=== PATIENT | female | born 1980 | race Caucasian/White ===

== ENCOUNTER → 2019-05-09 13:53 | Outpatient (CLI) | payer OTHER, MEDICAID, SELFPAY ==
[2019-05-09 14:37] LABS: Add Manual Diff / Slide Review NO; Basophils Absolute Auto 0 /uL (0-100); Basophils Percent Auto 0.4 % (0-2); Eosinophils Absolute Auto 100 /uL (0-450); Eosinophils Percent Auto 1.8 % (2-4); Hematocrit 42.8 % (36-46); Hemoglobin 14.5 g/dL (12.0-16.0); Lymphocytes Absolute Auto 2200 /uL (1100-4500); Lymphocytes Percent Auto 33.5 % (25-40); Mean Corpuscular HGB Conc 33.8 % (30-36); Mean Corpuscular Volume 97.7 fL (80-100); Monocytes Absolute Auto 500 /uL (0-900); Monocytes Percent Auto 8.4 % (3-14); Neutrophils Absolute Auto 3600 /uL (1500-7000); Neutrophils Percent Auto 55.9 % (50-75); Platelet Count 199 X10^3/uL (150-400); Red Blood Cell Count 4.38 X10^6/uL (4.0-5.2); Red Cell Distribution Width 13.3 % (11.6-14.8); White Blood Cell Count 6.5 X10^3/uL (4.5-11.0)
[2019-05-09 14:58] LABS: Hemoglobin A1C% w Est Avg Glu 4.9 % (4.0-6.0)
[2019-05-09 15:23] LABS: Alanine Aminotransferase 22 IU/L (9-52); Albumin 4.2 g/dL (3.5-5.0); Albumin Globulin Ratio 1.5 (1.0-2.8); Alkaline Phosphatase 60 U/L (38-126); Aspartate Aminotransferase 22 IU/L (14-36); BUN Creatinine Ratio 13.8 (6-22); Bilirubin Total 0.6 mg/dL (0.2-1.3); Blood Urea Nitrogen 11 mg/dL (7-17); Calcium 9.5 mg/dL (8.4-10.2); Carbon Dioxide 27 mmol/L (22-32); Chloride 100 mmol/L (98-107); Cholesterol 180 mg/dL (140-199); Estimated Glomerular Filt Rate > 60.0 mL/min (>60); Globulin 2.8 g/dL (1.7-4.1); Glucose 109 mg/dL (70-100); HDL Cholesterol 72 mg/dL (40-60); HEMOLYSIS < 15 (0-50); LDL Cholesterol Calculated 96 mg/dL (<100); Potassium 3.8 mmol/L (3.4-5.1); Sodium 138 mmol/L (137-145); Triglycerides 62 mg/dL (35-150)
[2019-05-09 15:54] LABS: TSH w/ Reflex to FT4 3.73 uIU/mL (0.47-4.68)
[2019-05-09 16:31] LABS: Folate 12.2 ng/mL (2.76-20.0); Vitamin B12 711 pg/mL (239-931)
[2019-05-11 16:40] LABS: Triiodothyronine T3 Total 94 ng/dL (76-181)
== END ==
PROVIDERS: PCP Nurse Practitioner Family; Visit Provider Nurse Practitioner Family
DX: R20.0 Anesthesia of skin (principal); T14.8XXA Other injury of unspecified body region, initial encounter; R35.8 Other polyuria; R61 Generalized hyperhidrosis; E66.3 Overweight
CPT/HCPCS: 36415; 80053; 80061; 82607; 82746; 83036; 84443; 84480; 85025

== ENCOUNTER 2019-06-11 16:36 | Emergency (ER) | payer OTHER, MEDICAID, SELFPAY ==
[2019-06-11] VITALS (8 sets, daily range): BP systolic 111–129; BP diastolic 73–87; PULSE 73–81; RESP 13–26; TEMP 36.5–36.6; O2SAT 99–100
--- NOTE | 2019-06-11 17:25 | DI.CT.S_ITS ---
PROCEDURE: CT LUMBAR SPINE WO CON INDICATIONS: s/p fall on sacrum, decreased sensation on low back/buttock TECHNIQUE: Noncontrast 3 mm thick sections acquired from the T12 level to the sacrum. Sagittal and coronal reformats were constructed. For radiation dose reduction, the following was used: automated exposure control. COMPARISON: None. FINDINGS: Image quality: Excellent. Bones: There is a mild kyphosis centered at L1-L2. There is a transverse lucency along the posterior aspect of the S1 vertebral body with associated slight cortical discontinuity. The findings may represent a relatively nondisplaced fracture. Elsewhere, no acute vertebral body compression fractures. The inferior aspect of the sacrum is not fully included on the current study. No suspicious lytic or blastic bony lesions. Central spinal caliber is of normal overall caliber. No pars defects. Disc spaces: There is mild multilevel disc bulging throughout the lumbar spine. No definite high-grade spinal canal or neural femoral narrowing identified on CT. Soft tissues: No retroperitoneal masses or hematomas. Visualized aorta is normal in caliber. There is an enlarged uterus partially visualized. A hypoattenuating lesion within the left myometrium measuring up to 2.2 cm slightly represents a fibroid. IMPRESSION: 1. Transverse linear lucency within the posterior aspect of the esophageal body may represent a nondisplaced fracture. If clinical concern persists, recommend further evaluation with MRI. 2. Inferior aspect of the sacrum incompletely included on the current study. 3. Mild multilevel disc bulging without definite high-grade spinal canal or neuroforaminal narrowing. Dictated by: Connor Suazo M.D. on 06/11/2019 at 18:22 Approved by: Connor Suazo M.D. on 06/11/2019 at 18:30
--- NOTE | 2019-06-11 18:57 | ED_ITS ---
HPI - Back Pain/Injury <SHONA Clemens - Last Filed: 06/11/19 22:56> General Chief Complaint: Back Pain/Injury Stated Complaint: numbness, lower extremities s/p fall monday Time Seen by Provider: 06/11/19 16:46 Source: patient Mode of arrival: Ambulatory Limitations: no limitations History of Present Illness HPI Narrative: This is a 38-year-old female, uses vaper, who presents with her friend with chief complain of decreased sensation on her low back radiating down to her bilateral legs including in groin area but without weakness. She reports she had mechanical fall on stairs and landed on her sacrum and down 3 steps. She denies hitting her head or other injuries. She denies fever or rashes, incontinence of bowel or urine. She denies severe back pain but reports some p ressure-like discomfort from mid low back and she is ambulatory in stable gait. She states she was driving today and noticed decrease in sensation on her legs and pressure discomfort and had to insole tack puller hand and had to call her friend to get picked up. Patient denies prior history of back surgeries. Related Data Previous Rx's Medication Instructions Recorded cyclobenzaprine 5 mg PO TID PRN #10 tab 06/11/19 hydrocodone-acetaminophen [Roll] 1 tab PO Q8H PRN #7 tab 06/11/19 lidocaine 1 patch TOP DAILY #15 each 06/11/19 Allergies Allergy/AdvReac Type Severity Reaction Status Date / Time No Known Drug Allergies Allergy Verified 06/11/19 22:59 Review of Systems <SHONA Clemens - Last Filed: 06/11/19 22:56> Review of Systems Narrative: General: Denies fever, chills, fatigue, malaise, sweats. HEENT: Denies sinus pain, ear pain, sore throat, difficulty swallowing, dizziness. Respiratory: Denies dyspnea, cough, wheezing, hemoptysis, sputum. Cardiovascular: Denies chest pain, palpitations, orthopnea, edema. Gastrointestinal: Denies nausea, vomiting, abdominal pain, diarrhea, constipation, melena. : Denies dysuria, frequency, incontinence, hematuria, urinary retention. Musculoskeletal: See HPI Skin: Denies rash, skin lesions, or other. Neurologic: See HPI Psychiatric: No concerning psychosocial issues. 12-point review of systems is negative except for those stated above. PFSH <SHONA Clemens - Last Filed: 06/11/19 22:56> Medical History Anxiety (Acute) Depression (Acute) Social History (System 05/10/19 @ 09:07 by Susana Moncada) Smoking Status: Never smoker Social History (Updated 06/11/19 @ 20:49 by SHONA Clemens) Smoking Status: Never smoker Exam <SHONA Clemens - Last Filed: 06/11/19 22:56> Narrative Exam Narrative: GEN: Alert, oriented x 3, well appearing and nourished, and in no acute distress. Head: Normal cephalic, atraumatic. No scalp or temporal tenderness, palpable mass or rash. EYES: Pupils are equal, round, and reactive to light and accommodation. Extraocular muscles are intact bilaterally. There is no subconjunctival hemorrhage, exudate and sclera non-icteric. ENT: Hearing grossly intact. Nose without bleeding, purulent discharge or deviation. Mucous membrane moist, no mucosal lesion. Throat without erythema, tonsillar hypertrophy or exudate. Uvula in midline, airway patent. Neck: Trachea in midline. No JVD, non-tender without lymphadenopathy. No masses or thyroid megaly. Supple, non-tender and no meningeal signs. CARDIAC: Normal regular rate and rhythm without murmurs, gallops, or rubs. No chest wall tenderness. No peripheral edema, cyanosis or pallor. Capillary refill is less than 2 seconds. RESPIRATORY: Lungs are cleat to auscultate bilaterally. No cough, wheezes, rales, or rhonchi. No stridor, respiratory distress, increase work of breathing, or accessary muscle used. ABD: Abdomen soft, nontender and non-distended. No guarding or rebound tenderness to palpate. Bowel sounds are normal in all 4 quadrants. There is no palpable masses or organomegaly. EXT: Full painless ROM of all extremities with no loss of strength, effusion or edema. SKIN: Warm, dry, normal color for patient. No erythema, lesions or rash over visible areas. NEUROLOGICAL: Alert and oriented to place, time and person. Sensation and motor function intact bilaterally. No facial droops, dysphasia. PSYCHIATRIC: Good judgement and reason, without hallucinations, abnormal affect or abnormal behaviors during the examination. Patient is not suicidal. Initial Vital Signs Initial Vital Signs: Vital Signs Temperature 97.8 F 06/11/19 16:43 Pulse Rate 76 06/11/19 16:43 Respiratory Rate 13 06/11/19 16:43 Blood Pressure 126/85 06/11/19 16:43 Pulse Oximetry 100 06/11/19 16:43 Back/Spine/Pelvis Back: normal to inspection Cervical Spine: cervical ROM normal Thoracic/Lumbar Spine: thoracic and lumbar spine normal to inspection, straight leg raise negative bilaterally, No thoraco-lumbar spasm, thoracic spinal tenderness (Reports Pressure like discomfort in low thoracic but not painful to palpate) and lumbar spinal tenderness (Reports Pressure like discomfort but not painful to palpate) Sacrum: no ecchymosis, no erythema and no swelling Coccyx: no swelling and no tenderness Other: Patient reports decrease sensation on mid low back, buttocks, radiating down to bilateral legs. Strength in bilateral lower extremities equal and intact. Patella tendon reflex intact bilaterally. Rectal tone and sensation intact. <Margarita Ward DO - Last Filed: 06/12/19 07:12> Initial Vital Signs Initial Vital Signs: Vital Signs Temperature 97.8 F 06/11/19 16:43 Pulse Rate 76 06/11/19 16:43 Respiratory Rate 13 06/11/19 16:43 Blood Pressure 126/85 06/11/19 16:43 Pulse Oximetry 100 06/11/19 16:43 Course <SHONA Clemens - Last Filed: 06/11/19 22:56> Orders Ordered: Discontinued Medications Hydrocodone Bitart/Acetaminophen (Vicodin Prepack) 1 bottle MISC SEEINSTR ONE Stop: 06/11/19 22:29 Last Admin: 06/11/19 22:38 Dose: 1 bottle Documented by: [employer] Cyclobenzaprine HCl (Flexeril 10 Mg Prepack) 1 bottle MISC SEEINSTR ONE Stop: 06/11/19 22:29 Last Admin: 06/11/19 22:38 Dose: 1 bottle Documented by: [employer] Ondansetron HCl (Zofran Odt) 4 mg SL NOW ONE Stop: 06/11/19 20:44 Last Admin: 06/11/19 20:53 Dose: 4 mg Documented by: [employer] Ondansetron HCl (Zofran Odt Prepack) 1 bottle MISC SEEINSTR ONE Stop: 06/11/19 22:29 Last Admin: 06/11/19 22:38 Dose: 1 bottle Documented by: [employer] Reevaluation(s) Reevaluation #1: Patient reports the sensation in her bilateral buttocks seems mildly improved. Time: 20:00 Time: 21:10 Reevaluation #3: The patient reports her sensation in bilateral legs and buttocks has been improved Consultations Consultation #1: Dr. Burgess was contacted for consult but advised to contact [facility] for teacher selection specialist. Time: 18:30 Consultation #2: [facility], Pushed CT at 1845. Dr. Armendariz kindly called back and provided clinical guidance at 2230. Time: 20:10 Vital Signs Vital signs: Vital Signs - 8 hr 06/11/19 16:43 06/11/19 17:00 06/11/19 18:46 Temperature 97.8 F 97.7 F Pulse Rate 76 79 Respiratory Rate 13 16 Blood Pressure 126/85 Blood Pressure [Left Arm] 125/73 Pulse Oximetry 100 99 06/11/19 19:55 06/11/19 20:12 06/11/19 21:10 Temperature Pulse Rate 73 81 73 Respiratory Rate 15 13 26 H Blood Pressure Blood Pressure [Left Arm] 127/82 118/77 111/73 Pulse Oximetry 100 100 100 06/11/19 22:03 06/11/19 22:15 Temperature Pulse Rate 76 74 Respiratory Rate 17 15 Blood Pressure Blood Pressure [Left Arm] 129/87 Pulse Oximetry 99 99 <Margarita Ward, - Last Filed: 06/12/19 07:12> Orders Ordered: Discontinued Medications Hydrocodone Bitart/Acetaminophen (Vicodin Prepack) 1 bottle MISC SEEINSTR ONE Stop: 06/11/19 22:29 Last Admin: 06/11/19 22:38 Dose: 1 bottle Documented by: [employer] Cyclobenzaprine HCl (Flexeril 10 Mg Prepack) 1 bottle MISC SEEINSTR ONE Stop: 06/11/19 22:29 Last Admin: 06/11/19 22:38 Dose: 1 bottle Documented by: [employer] Ondansetron HCl (Zofran Odt) 4 mg SL NOW ONE Stop: 06/11/19 20:44 Last Admin: 06/11/19 20:53 Dose: 4 mg Documented by: [employer] Ondansetron HCl (Zofran Odt Prepack) 1 bottle MISC SEEINSTR ONE Stop: 06/11/19 22:29 Last Admin: 06/11/19 22:38 Dose: 1 bottle Documented by: [employer] Vital Signs Vital signs: Vital Signs - 8 hr 06/11/19 16:43 06/11/19 17:00 06/11/19 18:46 Temperature 97.8 F 97.7 F Pulse Rate 76 79 Respiratory Rate 13 16 Blood Pressure 126/85 Blood Pressure [Left Arm] 125/73 Pulse Oximetry 100 99 06/11/19 19:55 06/11/19 20:12 06/11/19 21:10 Temperature Pulse Rate 73 81 73 Respiratory Rate 15 13 26 H Blood Pressure Blood Pressure [Left Arm] 127/82 118/77 111/73 Pulse Oximetry 100 100 100 06/11/19 22:03 06/11/19 22:15 Temperature Pulse Rate 76 74 Respiratory Rate 17 15 Blood Pressure Blood Pressure [Left Arm] 129/87 Pulse Oximetry 99 99 MDM - Back Pain/Injury <SHONA Clemens - Last Filed: 06/11/19 22:56> Differential Diagnosis Differential diagnosis: Likely lumbar radiculopathy, sciatica, strain of lumbar region and other (Lumbar/sacral fracture, disc rupture/bulging) Medical Records Attestation: I reviewed the patient's medical records. Lab Data Labs: Urine Dip Bedside Urine Glucose Negative Bedside Urine Bilirubin + 1 Bedside Urine Ketone - Negative Urine Specific [place] 1.010 Bedside Urine Occult Blood - Negative Bedside Urine pH 7.5 Bedside Urine Protein - Negative Bedside Urine Urobilinogen - Negative Bedside Urine Nitrite - Negative Bedside Urine Leukocytes - Negative Esterase Imaging Data CT-Lumbar : Radiologist's impression: [address] [address] [address] Scan Report Signed Patient: Verito Vinson [facility]#: [id number] : 1980Acct:[id number] Age/Sex: 38 / FDate of Service: 06/11/19 Loc: ED Accession Number: [id number] Procedure: CT lumbar spine wo con Ordering Provider: Karthikeyan Gallardo PROCEDURE: CT LUMBAR SPINE WO CON INDICATIONS: s/p fall on sacrum, decreased sensation on low back/buttock TECHNIQUE: Noncontrast 3 mm thick sections acquired from the T12 level to the sacrum. Sagittal and coronal reformats were constructed. For radiation dose reduction, the following was used: automated exposure control. COMPARISON: None. FINDINGS: Image quality: Excellent. Bones: There is a mild kyphosis centered at L1-L2. There is a transverse lucency along the posterior aspect of the S1 vertebral body with associated slight cortical discontinuity. The findings may represent a relatively nondisplaced fracture. Elsewhere, no acute vertebral body compression fractures. The inferior aspect of the sacrum is not fully included on the current study. No suspicious lytic or blastic bony lesions. Central spinal caliber is of normal overall caliber. No pars defects. Disc spaces: There is mild multilevel disc bulging throughout the lumbar spine. No definite high-grade spinal canal or neural femoral narrowing identified on CT. Soft tissues: No retroperitoneal masses or hematomas. Visualized aorta is normal in caliber. There is an enlarged uterus partially visualized. A hypoattenuating lesion within the left myometrium measuring up to 2.2 cm slightly represents a fibroid. IMPRESSION: 1. Transverse linear lucency within the posterior aspect of the esophageal body may represent a nondisplaced fracture. If clinical concern persists, recommend further evaluation with MRI. 2. Inferior aspect of the sacrum incompletely included on the current study. 3. Mild multilevel disc bulging without definite high-grade spinal canal or neuroforaminal narrowing. Dictated by: Connor Suazo M.D. on 06/11/2019 at 18:22 Approved by: Connor Suazo M.D. on 06/11/2019 at 18:30 [facility] Narrative Medical decision making narrative: This is a 38-year-old female who had fell on stairs on her sacrum and down 3 steps 3 days ago. Patient reports pressure-like low back pain has been manageable but she came in to ED today with decreased sensation from low back radiating to buttocks/groin and down to her ankle. Patient had intact bilateral strength in her lower extremities. She had intact rectal tone. Denies incontinence for bladder and stool. She denies fever/chills, nausea or vomiting. She is ambulatory in stable gait. Lumbar CT was obtained and shows possible transverse along the posterior aspect lucency with associated slight cortical discontinuity indicating nondisplaced fracture. There was also multilevel disc bulging without spinal canal narrowing. Initially Dr. Burgess was consulted but suggested to contact [facility] for teacher selection specialist. Patient was reassessed several times during ED stay and reports her sensation has been improving in her buttocks and bilateral lower legs. Dr. Armendariz kindly consulted for Ms. Vinson's case and suggested non- surgical intervention and conservative therapy with re-evaluation and strict return precautions. Patient was referred to [facility] for further evaluation and treatment. Patient advise possible further imaging test such as MRI in the near future. Patient discharged to home with muscle relaxant, Zofran ODT, Roll and lidocaine patch. Patient verbalized the understanding and agrees with treatment plan and ambulatory out the ED with stable gait. Work note provided. <Margarita Ward, DO - Last Filed: 06/12/19 07:12> Lab Data Labs: Urine Dip Bedside Urine Glucose Negative Bedside Urine Bilirubin + 1 Bedside Urine Ketone - Negative Urine Specific [place] 1.010 Bedside Urine Occult Blood - Negative Bedside Urine pH 7.5 Bedside Urine Protein - Negative Bedside Urine Urobilinogen - Negative Bedside Urine Nitrite - Negative Bedside Urine Leukocytes - Negative Esterase MDM Narrative Medical decision making narrative: Patient case discussed, she has full strength, good rectal tone, positive sensation, patient Ct imaging reviewed and plan for orthopedic consultation. Discharge Plan Departure Patient Disposition: Home Clinical Impression: Bulging lumbar disc, Fall (on) (from) other stairs and steps, initial encounter Closed fracture of sacrum Qualifiers: Encounter type: initial encounter Zone of sacrum fracture: unspecified portion of sacrum Qualified Code(s): S32.10XA - Unspecified fracture of sacrum, initial encounter for closed fracture Discharge Date/Time: 06/11/19 22:47 Instructions: DI for Vertebral Fracture Activity Restrictions/Additional Instructions: You have been diagnosed with [decreased sensation from low back to legs and back discomfort. CT of lumbar test shows you may have nondisplaced posterior S1 lumbar fracture with mild multilevel disc bulging w/o definite neuroforaminal narrowing]. What to do: *Take your medications as directed. Please take Tylenol and or Motrin as needed for the discomfort. Please take Flexeril as needed for muscle spasm and Roll for severe back pain. These medications will make you drowsy so please take precaution. Do not drive, drink alcohol or operate heavy equipments. You can use warm/cool pack as needed for discomfort. Rest you're back for next few days. *Follow up with your primary care provider in 2-3 days, call for an appointment. Let them know you were seen in the ED and that we asked you to be seen in follow up. You may need further imaging test such as MRI. *Return to ED if you have any new, worsening, or concerning symptoms, such as [increasing numbness from back to lower extremities, groin area, incontinence for urine and stool, weakness to her legs, chest pain, breathing difficulty, unable to tolerate fluids, or any acute concerns]. Prescriptions: New cyclobenzaprine 5 mg tablet 5 mg PO TID PRN (Reason: muscle spasm) Qty: 10 RF: 0 hydrocodone-acetaminophen [Roll] 5-325 mg tablet 1 tab PO Q8H PRN (Reason: pain) Qty: 7 RF: 0 lidocaine 5 % adhesive patch,medicated 1 patch TOP DAILY Qty: 15 RF: 0 Referrals: [facility] [Outside] Augustine Swain MD [Physician] - Karthikeyan Gallardo ARNP [Primary Care Provider] - Stand Alone Forms: Work Release Note
[2019-06-11] MEDS: ONDANSETRON 4 MG ODT SL (20:53)
[2019-06-11] MEDS: CYCLOBENZAPRINE 10 MG PREPACK 1 BOTTLE MISC (22:38)
[2019-06-11] MEDS: ONDANSETRON 4 MG ODT PREPACK 1 BOTTLE MISC (22:38)
[2019-06-11] MEDS: HYDROCODONE/ACET 5/325 PREPACK 1 BOTTLE MISC (22:38)
== END 2019-06-11 22:47 | disposition home or self-care (01) ==
PROVIDERS: Emergency Provider Nurse Practitioner Family; PCP Nurse Practitioner Family
DX: M51.26 Other intervertebral disc displacement, lumbar region (principal); S32.10XA Unspecified fracture of sacrum, initial encounter for closed fracture; W10.8XXA Fall (on) (from) other stairs and steps, initial encounter
CPT/HCPCS: 72131; 81003; 99283; 99284

== ENCOUNTER 2019-06-18 20:40 | Emergency (ER) | payer OTHER, MEDICAID, SELFPAY ==
[2019-06-18 20:53] VITALS: BP 125/81; PULSE 77; RESP 14; TEMP 37.5; O2SAT 95; BMI 30.7
--- NOTE | 2019-06-18 21:40 | ED_ITS ---
HPI - Fall General Chief Complaint: Fall Stated Complaint: feels like body is going numb Time Seen by Provider: 06/18/19 20:54 Source: patient Mode of arrival: Ambulatory Limitations: no limitations History of Present Illness HPI Narrative: 38-year-old female here for evaluation of symptoms to include ?my whole body going numb ?she was loosely seen in the emergency department after she sustained an injury where she slipped going down some stairs. Had a CT scan of the lumbar spine performed in the emergency department. Which had a question of a lumbar spinal fracture. States she has since followed up with Orthopedic surgery who, according to the patient, questions whether not there is actually a fracture. A consult was placed for her to have an MRI but she has not scheduled this yet. She is also followed up with her primary provider she states since that time she has had increasing numbness in her legs. She states that it is all around her legs all the way to her feet. She states she does not have any pain in her back. No urinary symptoms. No bowel symptoms. No vaginal bleeding. She thinks that it is the left side more than the right. She is also complaining of tingling in her hands and also on the right side of her face. Has not tried anything for symptoms prior to her Related Data Previous Rx's Medication Instructions Recorded cyclobenzaprine 5 mg PO TID PRN #10 tab 06/11/19 hydrocodone-acetaminophen [[place]] 1 tab PO Q8H PRN #7 tab 06/11/19 lidocaine 1 patch TOP DAILY #15 each 06/11/19 prednisone 40 mg PO DAILY 5 Days #10 tab 06/18/19 Allergies Allergy/AdvReac Type Severity Reaction Status Date / Time No Known Drug Allergies Allergy Verified 06/18/19 20:53 Review of Systems Constitutional Constitutional: Denies fever(s), Denies frequent falls and Denies headache(s) ENT Ears, Nose, Mouth, and Throat: Denies vertigo, Denies dizziness, Denies headache(s) and Denies disequilibrium Cardiovascular Cardiovascular: Denies chest pain, Denies syncope and Denies dyspnea Respiratory Respiratory: Denies dyspnea Gastrointestinal Gastrointestinal: Denies abdominal pain and Denies vomiting Genitourinary Genitourinary: Denies dysuria Musculoskeletal Musculoskeletal: Denies back pain, Denies myalgias, Denies arthralgias, Reports numbness and Reports tingling Integumentary/Breasts Skin/Breast: Denies lesions and Denies rash Neurologic Neurologic: Denies behavioral changes, Denies confusion, Denies vertigo, Denies dizziness, Denies syncope, Denies frequent falls, Denies headache(s), Denies focal weakness, Reports numbness, Reports sensory deficit, Reports tingling, Reports paresthesias and Denies disequilibrium Psychiatric Psychiatric: Denies behavioral changes and Denies confusion Hematologic/Lymphatic Hematologic/Lymphatic: Denies easy bleeding and Denies easy bruising Allergic/Immunologic Allergic/Immunologic: Denies urticaria Exam Initial Vital Signs Initial Vital Signs: Vital Signs Temperature 99.5 F 06/18/19 20:53 Pulse Rate 77 06/18/19 20:53 Respiratory Rate 14 06/18/19 20:53 Blood Pressure 125/81 06/18/19 20:53 Pulse Oximetry 95 06/18/19 20:53 Const General: cooperative, comfortable, well developed and well groomed Orientation: alert, awake and oriented x3 HENMT Head: normal to inspection and normocephalic Resp Effort & Inspection: normal respiratory effort Auscultation: clear to auscultation bilaterally Cardio Rate: regular rate Rhythm: regular rhythm GI Inspection: non-distended Palpation: No firm and No tender Back/Spine/Pelvis Back: No CVA tenderness Thoracic/Lumbar Spine: No thoracic spinal tenderness and No lumbar spinal tenderness Skin Lesions: no lesions Rashes: no rashes Neuro General: alert, awake and oriented x3 Cranial Nerves: CN's II-XI intact bilaterally Cognition: normal cognition Speech: speech normal Gait: normal gait Motor: muscle tone normal throughout Sensory Exam: no sensory deficits noted DTR's: Rt Patellar: 2+, Lt Patellar: 2+, Rt Ankle: 2+ and Lt Ankle: 2+ Extrem General: normal to inspection and capillary refill normal Psych Appearance: grossly normal and well kempt [facility] Medical History Anxiety (Acute) Depression (Acute) Social History Smoking Status: Never smoker Course Vital Signs Vital signs: Vital Signs - 8 hr 06/18/19 20:53 Temperature 99.5 F Pulse Rate 77 Respiratory Rate 14 Blood Pressure 125/81 Pulse Oximetry 95 MDM - Fall MDM Narrative Medical decision making narrative: Patient has no objective findings of weakness on her lower and upper extremities. to light touch patient stated that it felt the same on bilateral lower extremities. She still describes numbness. I have low suspicion for cauda equina given her physical exam. Also consider different cord syndromes however patient's symptoms are not consistent with any of these. I did inform the patient that an MRI is not unreasonable however this would not be able to be obtained in the emergency department. We did discuss paresthesias. I feel that no further workup was needed here in the emergency department. I did tried to provide reassurance to the patient. Will have her contact her primary provider. Also have her follow up with Orthopedics to get the MRI. She was given return precautions and follow-up instructions. Was sent home with prednisone to see if this does not improve her symptoms. She expressed understanding and agreement. Discharge Plan Departure Patient Disposition: Home Clinical Impression: Paresthesias Discharge Date/Time: 06/18/19 22:13 Instructions: DI for Numbness/tingling Activity Restrictions/Additional Instructions: I do agree that you needed MRI however we are unable to get that out of the emergency department. I do recommend that tomorrow you contact the orthopedic doctor's office to see the status of this referral. I also recommend you contact your primary provider for a follow-up. Take the medications as directed. Return to the emergency department for any new or worsening symptoms Prescriptions: New prednisone 20 mg tablet 40 mg PO DAILY 5 Days Qty: 10 RF: 0 No Action cyclobenzaprine 5 mg tablet 5 mg PO TID PRN (Reason: muscle spasm) Qty: 10 RF: 0 hydrocodone-acetaminophen [[place]] 5-325 mg tablet 1 tab PO Q8H PRN (Reason: pain) Qty: 7 RF: 0 lidocaine 5 % adhesive patch,medicated 1 patch TOP DAILY Qty: 15 RF: 0 Referrals: Karthikeyan Gallardo ARNP [Primary Care Provider] -
== END 2019-06-18 22:13 | disposition home or self-care (01) ==
PROVIDERS: Emergency Provider Emergency Medicine; PCP Nurse Practitioner Family
DX: R20.2 Paresthesia of skin (principal)
CPT/HCPCS: 99282

== ENCOUNTER 2020-07-02 06:54 | Emergency (ER) | payer OTHER, MEDICAID, SELFPAY ==
[2020-07-02 07:01] VITALS: BP 116/87; PULSE 94; RESP 12; TEMP 36.6; O2SAT 98; BMI 29.2
--- NOTE | 2020-07-02 07:29 | ED_ITS ---
HPI - Headache General Chief Complaint: Headache Stated Complaint: weird pain in head since yesterday Time Seen by Provider: 07/02/20 07:29 Source: patient Mode of arrival: Ambulatory Limitations: no limitations History of Present Illness HPI Narrative: This is a 39-year-old female who comes to the emergency department with complaint of pain in her left parietal region. Patient states that yesterday she was lifting some heavy equipment that weighed about 65 lb, she states that later she felt like she tweaked her neck and that the muscles are very tight and it was radiating to her posterior scalp. And then later in the evening she felt like it had moved more to the parietal area. She states that typically when she has pain or injuries set so much painful as feels numb and she is having a little bit of that sensation on the left side of her face. She has not appreciated any drooping or if difficulties with movement, she has not had any issues with dysarthria, patient has not had any new weakness or d ifficulty with using her extremities. She denies any fevers, no rashes or new skin changes she does have alopecia and has complete her loss on her scalp. Patient states she has had neck issues in the past but feels that her neck feels better at this time. She denies any chest pain or shortness of breath, no nausea or vomiting, no urinary or GI symptoms and no other neurologic symptoms. Patient takes Zoloft and states that she has alopecia as well as a history of recurrent syncope but states ?she has grown out of that?. She does have a history of migraines but states this seems different. Denies any recent surgeries. She waits tobacco, denies use of alcohol or illicit drugs other than THC. She denies any family history of cardiac, embolic or stroke history. Related Data Previous Rx's Medication Instructions Recorded cyclobenzaprine 5 mg PO TID PRN #10 tab 06/11/19 hydrocodone-acetaminophen [[place]] 1 tab PO Q8H PRN #7 tab 06/11/19 lidocaine 1 patch TOP DAILY #15 each 06/11/19 Allergies Allergy/AdvReac Type Severity Reaction Status Date / Time No Known Drug Allergies Allergy Verified 06/18/19 20:53 Review of Systems Review of Systems ROS Unobtainable: All systems reviewed & are unremarkable except as noted in HPI and below Patient History Medical History (Updated 07/02/20 @ 07:45 by Margarita Ward DO) Alopecia (Acute) Anxiety (Acute) Depression (Acute) Social History Smoking Status: Current every day smoker Smoking Status: Current every day smoker tobacco type: vaping alcohol intake frequency: a few times a week Substance Use Type: does not use and marijuana Exam Narrative Exam Narrative: GEN: well nourished, well appearing female, alert and oriented x 3, patient appears to be in mild distress. HEENT: Atraumatic, patient has alopecia and loss of hair over entire scalp, pupils are equal round reactive to light, extraocular movements are intact, nares are clear, TMs are clear with no fluid, there is no conjunctival pallor. Throat is clear without any exudates, erythema, tonsillar enlargement or uvular deviation, no facial droop. Patient describes decreased sensation around eye but has sensation to light touch. HEART: Regular rate and rhythm without murmur, clicks, rubs. Pulses are equal in upper extremities LUNGS:Lungs clear to auscultation, no wheezes, rales, crackles, chest moves symmetrically ABD:bowel sounds normal, soft, non-tender, no guarding, rebound, rigidity, no masses noted, no hepatosplenomegaly :No CVA tenderness MSCL: Non-tender, no muscle atrophy, muscles strength 5/5 upper and lower extremities, full range of motion, normal gait NEURO:CN 2-12 intact, sensation normal, reflexes 2/4 upper and lower extremities. finger nose finger test normal, heel roman test normal SKIN: no rash, no erythema or vesicles, patient has complete loss of hair on scalp and removed wig for examination. Initial Vital Signs Initial Vital Signs: Vital Signs Temperature 97.8 F 07/02/20 07:01 Pulse Rate 94 H 07/02/20 07:01 Respiratory Rate 12 07/02/20 07:01 Blood Pressure 116/87 07/02/20 07:01 Pulse Oximetry 98 07/02/20 07:01 Scores GCS Maria [place] coma scale eye opening: Spontaneous [place] coma scale verbal response: Orientated [place] coma scale motor response: Obey commands [place] coma scale total score: 15 Course Vital Signs Vital signs: Vital Signs - 8 hr 07/02/20 07:01 07/02/20 07:51 Temperature 97.8 F Pulse Rate 94 H 74 Respiratory Rate 12 16 Blood Pressure 116/87 119/78 Pulse Oximetry 98 100 MDM - Headache MDM Narrative Medical decision making narrative: Discussed with patient at this time my suspicion for stroke or other emergent event is low. We did discuss she could possibly be an early stages of a Berrios's palsy, Shingles although she does not have any skin changes noted. We did discuss anticipatory guidance, that she needs to return if her symptoms are continuing for a prolonged period if they are evolving or she is noting new neurologic changes. She was given referral for primary care issues being seen at the [facility] clinic and they have closed. Discharge Plan Departure Patient Disposition: Home Clinical Impression: Headache Discharge Date/Time: 07/02/20 07:48 Instructions: DI for Headache Activity Restrictions/Additional Instructions: Follow-up with primary care in the next 2-3 days if you are not having any improvement of her symptoms. If he needs there is a provider access line at [phone] [place] [id number] to help find a primary care provider. You may continue [id number] pain medications and the treatments even using at home if you find it helpful. Return to the ER for fevers greater 100.4 F, severe headaches, sudden vision changes, rash, drooping or weakness of the face, extremities, inability use extremities, new chest pain or shortness of breath, persistent vomiting, loss of bowel or bladder control or other new or concerning symptoms. Prescriptions: No Action cyclobenzaprine 5 mg tablet 5 mg PO TID PRN (Reason: muscle spasm) Qty: 10 RF: 0 hydrocodone-acetaminophen [[place]] 5-325 mg tablet 1 tab PO Q8H PRN (Reason: pain) Qty: 7 RF: 0 lidocaine 5 % adhesive patch,medicated 1 patch TOP DAILY Qty: 15 RF: 0
[2020-07-02 07:51] VITALS: BP 119/78; PULSE 74; RESP 16; O2SAT 100
== END 2020-07-02 07:48 | disposition home or self-care (01) ==
PROVIDERS: Emergency Provider Emergency Medicine
DX: R51.9 Headache, unspecified (principal)
CPT/HCPCS: 99281

== ENCOUNTER → 2020-10-02 09:07 | Outpatient (CLI) | payer OTHER, MEDICAID, SELFPAY ==
[2020-10-02] MEDS: COVID-19 VACC #1, MRNA(MOD) 100 MCG/0.5 ML VIAL IM (09:12)
== END ==
PROVIDERS: Visit Provider Internal Medicine
DX: Z23 Encounter for immunization (principal)
CPT/HCPCS: 0011A; 91301

== ENCOUNTER → 2020-10-30 09:14 | Outpatient (CLI) | payer OTHER, MEDICAID, SELFPAY ==
[2020-10-30] MEDS: COVID-19 VACC #2, MRNA(MOD) 100 MCG/0.5 ML VIAL IM (09:18)
== END ==
PROVIDERS: Visit Provider Internal Medicine
DX: Z23 Encounter for immunization (principal)
CPT/HCPCS: 0012A; 91301

== ENCOUNTER → 2020-12-21 14:49 | Outpatient (CLI) | payer OTHER, MEDICAID, SELFPAY ==
--- NOTE | 2020-12-21 | DI.US.S_ITS ---
LIMITED ULTRASOUND OF LEFT BREAST: 12/21/2020 CLINICAL: Palpable thickening in left breast UOQ. Comparison is made to exam dated: 12/21/2020 [facility]. Real-time ultrasound of the left breast upper outer quadrant was performed. Leal scale images of the real-time examination were reviewed. No significant abnormalities were seen sonographically in the left breast. Specifically, no finding to correspond to the patient's screening mammography abnormality. There is normal very dense fibrous tissue in this area on ultrasound. IMPRESSION: PROBABLY BENIGN There is no sonographic correlate to the patient's mammography abnormality other than normal dense tissue. A follow-up left mammogram and an ultrasound in 6 months is recommended to demonstrate stability. The patient also required immediate US evaluation of a right breast mammography finding because this could not be performed today. Findings and recommendations were conveyed to the patient at time of exam. This exam was interpreted at Station ID: [id number]. Electronically Signed By: Aleena ron/:12/23/2020 08:45:17 letter sent: Followup Recommended Ultrasound BI-RADS: 3 Probably benign
--- NOTE | 2020-12-21 | DI.MG.S_ITS ---
BILATERAL DIGITAL DIAGNOSTIC MAMMOGRAM 3D/2D: 12/21/2020 CLINICAL: Left breast pain and lump. Baseline exam. No prior exams were available for comparison. The tissue of both breasts is heterogeneously dense. This may lower the sensitivity of mammography. There is a 3.9 cm irregular equal density asymmetry with an indistinct margin in the left breast at 1 o'clock middle depth. This correlates as palpated. Incidental note made of an 8 mm round low density asymmetry with a circumscribed margin in the right breast at 11 o'clock anterior depth. No other significant masses or calcifications are seen in either breast. IMPRESSION: INCOMPLETE: NEEDS ADDITIONAL IMAGING EVALUATION The 3.9 cm irregular equal density asymmetry in the left breast at 1 o'clock middle depth is indeterminate. An ultrasound is recommended. This was performed immediately following this exam. The 8 mm round low density asymmetry in the right breast at 11 o'clock anterior depth most likely is a cyst and is indeterminate. An ultrasound is recommended. This was unable to be performed the same day, and patient will be instructed to schedule this exam as soon as possible. This exam was interpreted at Station ID: [id number]. NOTE: For mammograms, a report in lay terms will be sent to the patient. Approximately 15% of breast malignancies will not be visualized mammographically. In the management of a palpable breast mass, a negative mammogram must not discourage biopsy of a clinically suspicious lesion. Electronically Signed By: Aleena ron/:12/21/2020 16:02:25 ACR BI-RADS Category 0: Incomplete [id number]
== END ==
PROVIDERS: Referring Provider Physician Assistant; Visit Provider Physician Assistant
DX: R92.8 Other abnormal and inconclusive findings on diagnostic imaging of breast (principal); N64.4 Mastodynia; N64.89 Other specified disorders of breast
CPT/HCPCS: 76642; 77066; G0279

== ENCOUNTER 2021-01-22 12:57 | Emergency (ER) | payer OTHER, MEDICAID, SELFPAY ==
[2021-01-22] VITALS (7 sets, daily range): BP systolic 124–136; BP diastolic 66–97; PULSE 55–89; RESP 16–20; TEMP 36.6–36.7; O2SAT 98–100; BMI 26.4
[2021-01-22 13:36] LABS: Add Manual Diff / Slide Review NO; Basophils Absolute Auto 0 /uL (0-100); Eosinophils Absolute Auto 100 /uL (0-450); Eosinophils Percent Auto 2.4 % (2-4); Hematocrit 39.8 % (36-46); Hemoglobin 13.3 g/dL (12.0-16.0); Lymphocytes Absolute Auto 2200 /uL (1100-4500); Lymphocytes Percent Auto 44.9 % (25-40); Mean Corpuscular HGB Conc 33.3 % (30-36); Mean Corpuscular Hemoglobin 30.6 PG (26-34); Mean Corpuscular Volume 91.8 fL (80-100); Monocytes Absolute Auto 300 /uL (0-900); Monocytes Percent Auto 6.6 % (3-14); Neutrophils Absolute Auto 2200 /uL (1500-7000); Neutrophils Percent Auto 45.1 % (50-75); Platelet Count 202 X10^3/uL (150-400); Red Blood Cell Count 4.33 X10^6/uL (4.0-5.2); Red Cell Distribution Width 15.1 % (11.6-14.8); White Blood Cell Count 4.9 X10^3/uL (4.5-11.0)
[2021-01-22 13:38] LABS: INR 1.1 (0.9-1.3); Prothrombin Time 12.2 SECONDS (10.1-12.7)
[2021-01-22 13:41] LABS: PTT Partial Thromboplastin Tim 35 SECONDS (26.4-36.2)
[2021-01-22 13:46] LABS: Alanine Aminotransferase 19 IU/L (<35); Albumin 4.3 g/dL (3.5-5.0); Albumin Globulin Ratio 1.5 (1.0-2.8); Alkaline Phosphatase 39 U/L (38-126); Aspartate Aminotransferase 25 IU/L (14-36); BUN Creatinine Ratio 14.7 (6-22); Bilirubin Total 0.5 mg/dL (0.2-1.3); Blood Urea Nitrogen 10 mg/dL (7-17); Calcium 9.2 mg/dL (8.4-10.2); Carbon Dioxide 25 mmol/L (22-32); Chloride 103 mmol/L (98-107); Estimated Glomerular Filt Rate > 60.0 mL/min (>60); Globulin 2.9 g/dL (1.7-4.1); Glucose 90 mg/dL (70-100); HEMOLYSIS < 15 (0-50); Lipase 228 U/L (23-300); Potassium 3.7 mmol/L (3.4-5.1); Sodium 135 mmol/L (137-145); Total Protein 7.2 g/dL (6.3-8.2)
--- NOTE | 2021-01-22 15:18 | ED_ITS ---
HPI - Abdominal Pain General Chief Complaint: Abdominal Pain Stated Complaint: nausea, vomiting, diarrhea, pain Time Seen by Provider: 01/22/21 14:46 Source: patient Mode of arrival: Ambulatory Limitations: no limitations History of Present Illness HPI narrative: Patient is a 40-year-old female who presents with diarrhea nausea vomiting and abdominal pain which started last evening. There are other people at work who have similar symptoms. She felt a little lightheaded and thought that her glucose was low so she ate a protein shake and then immediately has had multiple episodes of diarrhea yesterday. Today she has felt nauseous and threw up just a little bit. No fever, but is feeling chilled. No bloody stools. No recent antibiotics. MD complaint: abdominal pain Onset (ago): hour(s) Quality: cramping Radiation: none Related Data Previous Rx's Medication Instructions Recorded cyclobenzaprine 5 mg PO TID PRN #10 tab 06/11/19 hydrocodone-acetaminophen [[place]] 1 tab PO Q8H PRN #7 tab 06/11/19 lidocaine 1 patch TOP DAILY #15 each 06/11/19 ondansetron 4 mg PO Q8H PRN #10 tab 01/22/21 Allergies Allergy/AdvReac Type Severity Reaction Status Date / Time No Known Drug Allergies Allergy Verified 01/22/21 13:17 Review of Systems Review of Systems Narrative: GENERAL: Denies chills, fatigue, malaise, fever, sweats, travel HEENT: Denies sinus pain, ear pain, sore throat, difficulty swallowing, neck pain RESPIRATORY: Denies dyspnea, cough, wheezing, hemoptysis, sputum. CARDIOVASCULAR: Denies chest pain, palpitations, orthopnea, edema GASTROINTESTINAL: See HPI : Denies dysuria, frequency, incontinence, hematuria, urinary retention, flank pain. MUSCULOSKELETAL: Denies weakness, joint pain, or bony pain SKIN: No rash, no erythema, no pruritus NEUROLOGIC: Denies weakness, dizziness, headache, numbness, change in speech, confusion PSYCHIATRIC: No concerning psychosocial issues. 12 point review of systems is negative except for those stated above and HPI Patient History Medical History Alopecia Anxiety Depression Social History Smoking Status: Current every day smoker Smoking Status: Current every day smoker tobacco type: vaping alcohol intake frequency: a few times a week Substance Use Type: does not use and marijuana Exam Initial Vital Signs Initial Vital Signs: Vital Signs Temperature 98.1 F 01/22/21 13:09 Pulse Rate 82 01/22/21 13:09 Respiratory Rate 16 01/22/21 13:09 Blood Pressure 136/97 H 01/22/21 13:09 Pulse Oximetry 99 01/22/21 13:09 GENERAL: Well-appearing, well-nourished and in no acute distress. HEENT: Head atraumatic,EOMI, pupils reactive, face symmetric, moist mucous membranes CARDIOVASCULAR: Regular rate and rhythm without murmurs, rubs or gallops. RESPIRATORY: Breath sounds equal bilaterally, no wheezes rales or rhonchi. ABDOMEN: Soft, nontender. Normoactive bowel sounds all 4 quadrants. No guarding or rebound. EXTREMITIES: Normal range of motion, no clubbing or edema. Neurovascularly intact NEUROLOGICAL: Alert and oriented x4.Normal gait and speech. Cranial nerves II through XII grossly intact. SKIN: Warm, dry, no laceration, no petechiae, no rashes or lesions. Course Orders Ordered: ED Orders 01/22/21 13:20 Complete Blood Count AUTO DIFF Stat Comprehensive Metabolic Panel Stat Lipase Stat Partial Thromboplastin Time Stat Prothrombin Time INR Stat 01/22/21 13:22 EKG-12 Lead Stat Discontinued Medications Sodium Chloride (Normal Saline 0.9%) 1,000 mls @ 1,000 mls/hr IV BOLUS ONE Stop: 01/22/21 16:52 Last Infusion: 01/22/21 17:16 Dose: 0 mls/hr Documented by: Admin: 01/22/21 16:12 Dose: 1,000 mls/hr Documented by: BREEZY Ketorolac Tromethamine (Ketorolac 30 Mg/Ml Vial) 15 mg IV NOW ONE Stop: 01/22/21 15:54 Last Admin: 01/22/21 16:13 Dose: 15 mg Documented by: BREEZY Ondansetron HCl (Ondansetron 4 Mg/2 Ml Inj) 4 mg IV NOW ONE Stop: 01/22/21 15:54 Last Admin: 01/22/21 16:12 Dose: 4 mg Documented by: BREEZY Vital Signs Vital signs: Vital Signs - 8 hr 05/14/21 13:09 01/22/21 13:45 01/22/21 13:46 Temperature 98.1 F Pulse Rate 82 79 79 Respiratory Rate 16 Blood Pressure 136/97 H 126/68 124/79 Pulse Oximetry 99 100 100 01/22/21 15:20 01/22/21 15:23 01/22/21 15:33 Temperature 97.8 F Pulse Rate 89 87 Respiratory Rate 16 Blood Pressure 128/66 124/76 Pulse Oximetry 98 99 99 01/22/21 17:25 Temperature Pulse Rate 55 L Respiratory Rate 20 Blood Pressure 135/76 Pulse Oximetry 100 MDM - Abdominal Pain Lab Data Result diagrams: 01/22/21 13:20 01/22/21 13:20 Labs: Lab Results 01/22/21 01/22/21 01/22/21 Range/Units 13:20 13:20 13:20 WBC 4.9 (4.5-11.0) X10^3/uL RBC 4.33 (4.0-5.2) X10^6/uL Hgb 13.3 (12.0-16.0) g/dL Hct 39.8 (36-46) % MCV 91.8 (80-100) fL MCH 30.6 (26-34) PG MCHC 33.3 (30-36) % RDW 15.1 H (11.6-14.8) % Plt Count 202 (150-400) X10^3/uL Neut % (Auto) 45.1 L (50-75) % Lymph % (Auto) 44.9 H (25-40) % [place] % (Auto) 6.6 (3-14) % Eos % (Auto) 2.4 (2-4) % Baso % (Auto) 1.0 (0-2) % Neut # (Auto) 2200 (8194-2566) /uL Lymph # (Auto) 2200 (7151-9813) /uL [place] # (Auto) 300 (0-900) /uL Eos # (Auto) 100 (0-450) /uL Baso # (Auto) 0 (0-100) /uL PT 12.2 (10.1-12.7) SECONDS INR 1.1 (0.9-1.3) APTT 35 (26.4-36.2) SECONDS Sodium 135 L (137-145) mmol/L Potassium 3.7 (3.4-5.1) mmol/L Chloride 103 (98-107) mmol/L Carbon Dioxide 25 (22-32) mmol/L BUN 10 (7-17) mg/dL Creatinine 0.68 (0.52-1.04) mg/dL Estimated GFR > 60.0 (>60) mL/min BUN/Creatinine Ratio 14.7 (6-22) Glucose 90 (70-100) mg/dL Calcium 9.2 (8.4-10.2) mg/dL Total Bilirubin 0.5 (0.2-1.3) mg/dL AST 25 (14-36) IU/L ALT 19 (<35) IU/L Alkaline Phosphatase 39 (38-126) U/L Total Protein 7.2 (6.3-8.2) g/dL Albumin 4.3 (3.5-5.0) g/dL Globulin 2.9 (1.7-4.1) g/dL Albumin/Globulin Ratio 1.5 (1.0-2.8) Lipase 228 (23-300) U/L Point of care testing: Point of Care Testing Test Results Negative Urine Dip Bedside Urine Glucose Negative Bedside Urine Bilirubin - Negative Bedside Urine Ketone +/- 5 Urine Specific [place] 1.030 Bedside Urine Occult Blood - Negative Bedside Urine pH 6.0 Bedside Urine Protein - Negative Bedside Urine Urobilinogen - Negative Bedside Urine Nitrite - Negative Bedside Urine Leukocytes - Negative Esterase MDM Narrative Medical decision making narrative: The patient has signs and symptoms consistent with gastroenteritis. Blood work overall appears reassuring no significant sign of dehydration. She has not had any diarrhea or vomiting in the emergency department but she remains quite chilled and cooled. She is tolerating oral fluids and feels better after IV hydration his Toradol and Zofran. Discussed with her oral rehydration technique and when to return to the ED. Discharge Plan Departure Patient Disposition: Home Clinical Impression: Gastroenteritis Instructions: DI for Viral Gastroenteritis -- Adult Activity Restrictions/Additional Instructions: 1) You have been diagnosed with gastroenteritis 2) What to do: Drink frequent but small amounts of fluids. I recommend Gatorade or a Gatorade-like product, as it has small amounts of sugar and salts that improve fluid retention. 3) Take medications as directed Zofran 4 mg every 8 hours if needed for nausea or vomiting 4) Follow up with your primary care provider in 2-3 days [and follow up with ortho, urology etc] 5) Return to ER if you should have any new or worsening symptoms such as, unable to hold down fluids despite use of anti-nausea medications and the small volume oral rehydration strategy. Prescriptions: New ondansetron 4 mg tablet,disintegrating 4 mg PO Q8H PRN (Reason: nausea and vomiting) Qty: 10 RF: 0 No Action cyclobenzaprine 5 mg tablet 5 mg PO TID PRN (Reason: muscle spasm) Qty: 10 RF: 0 hydrocodone-acetaminophen [[place]] 5-325 mg tablet 1 tab PO Q8H PRN (Reason: pain) Qty: 7 RF: 0 lidocaine 5 % adhesive patch,medicated 1 patch TOP DAILY Qty: 15 RF: 0 Referrals: Miguelina Schneider PA-C [Primary Care Provider] - Stand Alone Forms: Work Release Note
[2021-01-22] MEDS: ONDANSETRON 4 MG/2 ML INJ IV (16:12)
[2021-01-22] MEDS: SODIUM CHLORIDE 0.9% 1,000 ML 1000 ML IV (16:12)
[2021-01-22] MEDS: KETOROLAC 30 MG/ML VIAL 15 MG IV (16:13)
== END 2021-01-22 17:42 | disposition home or self-care (01) ==
PROVIDERS: Emergency Provider Emergency Medicine; PCP Physician Assistant
DX: K52.9 Noninfective gastroenteritis and colitis, unspecified (principal); R11.2 Nausea with vomiting, unspecified; R42 Dizziness and giddiness
CPT/HCPCS: 36415; 80053; 81003; 81025; 83690; 85025; 85610; 85730; 93005; 93010; 96361; 96374; 96375; 99284; J1885; J2405

== ENCOUNTER → 2021-01-25 12:21 | Outpatient (CLI) | payer OTHER, MEDICAID, SELFPAY | PROVIDERS: PCP Physician Assistant; Referring Provider Physician Assistant; Visit Provider Physician Assistant | DX: R10.30 Lower abdominal pain, unspecified (principal) | CPT/HCPCS: 87045; 87177; 87329; 87493; 87899 ==

== ENCOUNTER 2021-01-25 18:10 | Emergency (ER) | payer OTHER, MEDICAID, SELFPAY ==
[2021-01-25 18:19] VITALS: BP 164/91; PULSE 95; RESP 24; TEMP 37; O2SAT 97
--- NOTE | 2021-01-25 18:31 | ED_ITS ---
HPI - General Adult General Chief complaint: Abdominal Pain Stated complaint: ABD PAIN NAUSEA DIARRHEA Time Seen by Provider: 01/25/21 18:23 Source: patient Mode of arrival: Ambulatory Limitations: no limitations History of Present Illness HPI narrative: Patient is a 40-year-old female who was seen here in the emerg ency department a couple days ago for nausea and vomiting and diarrhea. She was subsequently discharged home. She states that her symptoms did improve somewhat after that visit however returned in her now worsened and seem to be located in her lower abdomen. She states she gets quite a bit of discomfort after she eats or drinks anything. Afebrile. No urinary symptoms. Related Data Previous Rx's Medication Instructions Recorded cyclobenzaprine 5 mg PO TID PRN #10 tab 06/11/19 hydrocodone-acetaminophen [[place]] 1 tab PO Q8H PRN #7 tab 06/11/19 lidocaine 1 patch TOP DAILY #15 each 06/11/19 ondansetron 4 mg PO Q8H PRN #10 tab 01/22/21 dicyclomine 10 mg PO TID PRN #21 cap 01/25/21 Allergies Allergy/AdvReac Type Severity Reaction Status Date / Time No Known Drug Allergies Allergy Verified 01/22/21 13:17 Review of Systems Constitutional Constitutional: Denies fever(s) Cardiovascular Cardiovascular: Denies chest pain and Denies dyspnea Respiratory Respiratory: Denies dyspnea Gastrointestinal Gastrointestinal: Reports abdominal pain, Reports diarrhea, Reports nausea and Reports vomiting Genitourinary Genitourinary: Denies dysuria Genitourinary: Denies dysuria Musculoskeletal Musculoskeletal: Denies back pain Integumentary/Breasts Skin/Breast: Denies rash Neurologic Neurologic: Reports system reviewed and no additional complaints, except as documented Psychiatric Psychiatric: Reports system reviewed and no additional complaints, except as documented Hematologic/Lymphatic On Anticoagulants: No Allergic/Immunologic Allergic/Immunologic: Reports system reviewed and no additional complaints, except as documented Patient History Medical History Alopecia Anxiety Depression Social History Smoking Status: Former smoker Smoking Status: Former smoker tobacco type: vaping alcohol intake frequency: a few times a week Substance Use Type: does not use and marijuana Exam Initial Vital Signs Initial Vital Signs: Vital Signs Temperature 98.6 F 01/25/21 18:19 Pulse Rate 95 H 01/25/21 18:19 Respiratory Rate 24 01/25/21 18:19 Blood Pressure 164/91 H 01/25/21 18:19 Pulse Oximetry 97 01/25/21 18:19 Const General: cooperative Limitations: mental status not altered [facility] Head: normal to inspection and normocephalic Cardio Rate: regular rate GI Inspection: non-distended Palpation: soft, No firm and tender (Suprapubic) Skin Lesions: no lesions Rashes: no rashes Neuro General: patient alert and patient awake Extrem General: capillary refill normal Psych Appearance: grossly normal and well kempt Course Orders Ordered: ED Orders 01/25/21 18:32 CT abdomen pelvis w con Stat 01/25/21 18:35 Complete Blood Count AUTO DIFF Stat Comprehensive Metabolic Panel Stat Lipase Stat Partial Thromboplastin Time Stat Prothrombin Time INR Stat 01/25/21 19:37 US pelvic complete Stat Discontinued Medications Sodium Chloride (Normal Saline 0.9%) 1,000 mls @ 1,000 mls/hr IV BOLUS ONE Stop: 01/25/21 19:31 Last Infusion: 01/25/21 22:10 Dose: 0 mls/hr Documented by: Admin: 01/25/21 18:43 Dose: 1,000 mls/hr Documented by: MELVIN Morphine Sulfate (Morphine 4 Mg/Ml Inj) 4 mg IV NOW ONE Stop: 01/25/21 18:33 Last Admin: 01/25/21 18:41 Dose: 4 mg Documented by: MELVIN Ondansetron HCl (Ondansetron 4 Mg/2 Ml Inj) 4 mg IV NOW ONE Stop: 01/25/21 18:33 Last Admin: 01/25/21 18:41 Dose: 4 mg Documented by: MELVIN Vital Signs Vital signs: Vital Signs - 8 hr 01/25/21 22:11 Pulse Rate 73 Respiratory Rate 16 Blood Pressure 115/80 Pulse Oximetry 99 Medical Decision Making Lab Data Lab results reviewed: Yes I reviewed the patient's lab results. Result diagrams: 01/25/21 18:35 01/25/21 18:35 Labs: Lab Results 01/25/21 01/25/21 01/25/21 Range/Units 18:35 18:35 18:35 WBC 6.3 (4.5-11.0) X10^3/uL RBC 4.59 (4.0-5.2) X10^6/uL Hgb 13.8 (12.0-16.0) g/dL Hct 42.0 (36-46) % MCV 91.6 (80-100) fL MCH 30.0 (26-34) PG MCHC 32.8 (30-36) % RDW 14.6 (11.6-14.8) % Plt Count 221 (150-400) X10^3/uL Neut % (Auto) 45.4 L (50-75) % Lymph % (Auto) 43.3 H (25-40) % [place] % (Auto) 7.2 (3-14) % Eos % (Auto) 3.3 (2-4) % Baso % (Auto) 0.8 (0-2) % Neut # (Auto) 2800 (8926-8865) /uL Lymph # (Auto) 2700 (6921-2080) /uL [place] # (Auto) 500 (0-900) /uL Eos # (Auto) 200 (0-450) /uL Baso # (Auto) 100 (0-100) /uL PT 12.5 (10.1-12.7) SECONDS INR 1.1 (0.9-1.3) APTT 34 (26.4-36.2) SECONDS Sodium 139 (137-145) mmol/L Potassium 3.9 (3.4-5.1) mmol/L Chloride 105 (98-107) mmol/L Carbon Dioxide 26 (22-32) mmol/L BUN 10 (7-17) mg/dL Creatinine 0.72 (0.52-1.04) mg/dL Estimated GFR > 60.0 (>60) mL/min BUN/Creatinine Ratio 13.9 (6-22) Glucose 100 (70-100) mg/dL Calcium 9.7 (8.4-10.2) mg/dL Total Bilirubin 0.5 (0.2-1.3) mg/dL AST 25 (14-36) IU/L ALT 19 (<35) IU/L Alkaline Phosphatase 35 L (38-126) U/L Total Protein 7.3 (6.3-8.2) g/dL Albumin 4.4 (3.5-5.0) g/dL Globulin 2.9 (1.7-4.1) g/dL Albumin/Globulin Ratio 1.5 (1.0-2.8) Lipase 192 (23-300) U/L Point of Care Testing Test Results Negative Urine Dip Bedside Urine Glucose Negative Bedside Urine Bilirubin - Negative Bedside Urine Ketone - Negative Urine Specific [place] 1.025 Bedside Urine Occult Blood +/- Bedside Urine pH 6.0 Bedside Urine Urobilinogen - Negative Bedside Urine Nitrite - Negative Bedside Urine Leukocytes - Negative Esterase Point of care testing: Point of Care Testing Test Results Negative Urine Dip Bedside Urine Glucose Negative Bedside Urine Bilirubin - Negative Bedside Urine Ketone - Negative Urine Specific [place] 1.025 Bedside Urine Occult Blood +/- Bedside Urine pH 6.0 Bedside Urine Urobilinogen - Negative Bedside Urine Nitrite - Negative Bedside Urine Leukocytes - Negative Esterase Imaging Data CT scan - abdomen/pelvis: Radiologist's Impression: [address] [id number] Scan ReportSigned Patient: Verito Vinson [facility]#: [id number]: 1980Acct:[id number]/Sex: 40 / FDate of Service: 01/25/21Loc: EDAccession Number: [id number] Procedure: CT abdomen pelvis w con Ordering Provider: Nick Jones D.O. PROCEDURE: CT ABDOMEN PELVIS W CON INDICATIONS: Left-sided abdominal pain TECHNIQUE: After the administration of intravenous contrast, 5 mm thick sections acquired from the diaphragm to the symphysis. 5 mm coronal and sagittal reformats were acquired. For radiation dose reduction, the following was used: automated exposure control, adjustment of mA and/or kV according to patient size. COMPARISON: None. FINDINGS: Image quality: Excellent. ABDOMEN: Lung bases: Lung bases are clear. Heart size is normal. Solid organs: Liver is normal in size and enhancement. Occasional a subcentimeter hypodensities in liver and spleen, potentially hemangiomas. Gallbladder is normal. Biliary system is non dilated. Pancreas enhances normally. Spleen is normal in size and enhancement. No adrenal nodules. Kidneys demonstrate normal size and enhancement, without hydronephrosis. Peritoneum and bowel: The stomach is distended with fluid. No perigastric inflammation. Small bowel loops are normal caliber and wall thickness. There is a normal appendix. Bowel loops demonstrate normal wall thickness and caliber. No free fluid or air. Nodes and vessels: No retroperitoneal or mesenteric adenopathy by size criteria. Aorta and inferior vena cava are normal in size. Miscellaneous: No ventral hernias. PELVIS: Genitourinary: The urinary bladder is decompressed.. The uterus is mildly enlarged and lobulated secondary to at least three myometrial and subserosal masses primarily involving the left and fundal uterus. There is no free fluid. Miscellaneous: No inguinal hernias or adenopathy. Bones: No suspicious bony lesions. No vertebral body compression fractures. IMPRESSION: 1. Fluid-filled stomach may indicate gastroenteritis. 2. Mild enlarged, fibroid uterus. 3. Small liver and spleen hemangiomas. Dictated by: Aleena Moran M.D. on 01/25/2021 at 19:22 Approved by: Aleena Moran M.D. on 01/25/2021 at 19:28 US - WASH DRILLER HELPER: Radiologist's Impression: [address] [id number] ReportSigned Patient: Verito Vinson [facility]#: [id number]: 1980Acct:[id number]/Sex: 40 / FDate of Service: 01/25/21Loc: EDAccession Number: [id number] Procedure: US pelvic complete Ordering Provider: Nick Jones D.O. PROCEDURE: US PELVIC COMPLETE INDICATIONS: L adnexa pain eval for ovarian pathology TECHNIQUE: Real-time scanning was performed of the pelvic organs, with image documentation. Additional endovaginal scanning was necessary due to incomplete visualization of the adnexal and endometrial structures by transabdominal scanning. COMPARISON: None. FINDINGS: Uterus: Uterus is at the upper limits of normal in size at 9.9 x 7.5 x 6.0 cm. The endometrium measures 8.0 mm in combined thickness. 2 dominant fibroids, the larger left anterior intramural fibroid measures 3.6 x 2.0 x 2.2 cm. The smaller is a mid posterior submucosal fibroid with peripheral calcification measuring 2.2 x 1.9 x 1.7 cm anteriorly displacing the endometrium. Small nabothian cyst is present in the cervix. Ovaries: The right ovary measures 3.5 x 2.3 x 1.5 cm and has a normal follicular echotexture and vascularity. There is a small amount of right adnexal fluid. The left ovary measures 3.6 x 2.4 x 2.2 cm and contains a dominant follicle as well as normal follicular echotexture and vascularity. No suspicious left adnexal mass. Other: No pathologic free abdominal or pelvic fluid. IMPRESSION: 1. Normal ovaries. 2. No evidence of ovarian torsion or mass. 3. Fibroid uterus. 4. Small amount of nonspecific right adnexal fluid. Dictated by: Aleena Moran M.D. on 01/25/2021 at 21:44 Approved by: Aleena Moran M.D. on 01/25/2021 at 21:49 MDM Narrative Medical decision making narrative: Labs are unremarkable. LFTs are unremarkable. CT scan shows no signs of surgical pathology. Ultrasound shows fibroids which could potentially be causing her symptoms. There is no indication for antibiotics. No indication for surgical consultation. No indication for further radiologic studies. I have her contact her primary doctor to discuss the indications for referral to see GI. She is given return precautions. She expressed understanding and agreement. Discharge Plan Departure Patient Disposition: Home Clinical Impression: Abdominal pain Instructions: DI for Abdominal Pain-Adult Activity Restrictions/Additional Instructions: Your workup today is very reassuring. There is no signs of any infectious pr ocess that requires antibiotics. No signs of any surgical process. The ultrasound does show fibroids however like we discussed I feel this is less likely the cause of your symptoms. Recommend that you contact your primary provider to discuss further workup to include a referral to see Gastroenter ology. Return to the emergency department for any new symptoms. Prescriptions: New dicyclomine 10 mg capsule 10 mg PO TID PRN (Reason: abdominal pain) Qty: 21 RF: 0 No Action cyclobenzaprine 5 mg tablet 5 mg PO TID PRN (Reason: muscle spasm) Qty: 10 RF: 0 hydrocodone-acetaminophen [[place]] 5-325 mg tablet 1 tab PO Q8H PRN (Reason: pain) Qty: 7 RF: 0 lidocaine 5 % adhesive patch,medicated 1 patch TOP DAILY Qty: 15 RF: 0 ondansetron 4 mg tablet,disintegrating 4 mg PO Q8H PRN (Reason: nausea and vomiting) Qty: 10 RF: 0 Referrals: Miguelina Schneider PA-C [Primary Care Provider] -
[2021-01-25 18:40] LABS: Add Manual Diff / Slide Review NO; Basophils Absolute Auto 100 /uL (0-100); Basophils Percent Auto 0.8 % (0-2); Eosinophils Absolute Auto 200 /uL (0-450); Eosinophils Percent Auto 3.3 % (2-4); Hemoglobin 13.8 g/dL (12.0-16.0); Lymphocytes Absolute Auto 2700 /uL (1100-4500); Lymphocytes Percent Auto 43.3 % (25-40); Mean Corpuscular HGB Conc 32.8 % (30-36); Mean Corpuscular Volume 91.6 fL (80-100); Monocytes Absolute Auto 500 /uL (0-900); Monocytes Percent Auto 7.2 % (3-14); Neutrophils Absolute Auto 2800 /uL (1500-7000); Neutrophils Percent Auto 45.4 % (50-75); Platelet Count 221 X10^3/uL (150-400); Red Blood Cell Count 4.59 X10^6/uL (4.0-5.2); Red Cell Distribution Width 14.6 % (11.6-14.8); White Blood Cell Count 6.3 X10^3/uL (4.5-11.0)
[2021-01-25] MEDS: MORPHINE 4 MG/ML INJ IV (18:41)
[2021-01-25] MEDS: ONDANSETRON 4 MG/2 ML INJ IV (18:41)
[2021-01-25] MEDS: SODIUM CHLORIDE 0.9% 1,000 ML 1000 ML IV (18:43)
[2021-01-25 18:49] LABS: INR 1.1 (0.9-1.3); Prothrombin Time 12.5 SECONDS (10.1-12.7)
[2021-01-25 18:52] LABS: PTT Partial Thromboplastin Tim 34 SECONDS (26.4-36.2)
[2021-01-25 18:53] LABS: Alanine Aminotransferase 19 IU/L (<35); Albumin 4.4 g/dL (3.5-5.0); Albumin Globulin Ratio 1.5 (1.0-2.8); Alkaline Phosphatase 35 U/L (38-126); Aspartate Aminotransferase 25 IU/L (14-36); BUN Creatinine Ratio 13.9 (6-22); Bilirubin Total 0.5 mg/dL (0.2-1.3); Blood Urea Nitrogen 10 mg/dL (7-17); Calcium 9.7 mg/dL (8.4-10.2); Carbon Dioxide 26 mmol/L (22-32); Chloride 105 mmol/L (98-107); Estimated Glomerular Filt Rate > 60.0 mL/min (>60); Globulin 2.9 g/dL (1.7-4.1); Glucose 100 mg/dL (70-100); HEMOLYSIS < 15 (0-50); Lipase 192 U/L (23-300); Potassium 3.9 mmol/L (3.4-5.1); Sodium 139 mmol/L (137-145); Total Protein 7.3 g/dL (6.3-8.2)
--- NOTE | 2021-01-25 19:37 | DI.US.S_ITS ---
PROCEDURE: US PELVIC COMPLETE INDICATIONS: L adnexa pain eval for ovarian pathology TECHNIQUE: Real-time scanning was performed of the pelvic organs, with image documentation. Additional endovaginal scanning was necessary due to incomplete visualization of the adnexal and endometrial structures by transabdominal scanning. COMPARISON: None. FINDINGS: Uterus: Uterus is at the upper limits of normal in size at 9.9 x 7.5 x 6.0 cm. The endometrium measures 8.0 mm in combined thickness. 2 dominant fibroids, the larger left anterior intramural fibroid measures 3.6 x 2.0 x 2.2 cm. The smaller is a mid posterior submucosal fibroid with peripheral calcification measuring 2.2 x 1.9 x 1.7 cm anteriorly displacing the endometrium. Small nabothian cyst is present in the cervix. Ovaries: The right ovary measures 3.5 x 2.3 x 1.5 cm and has a normal follicular echotexture and vascularity. There is a small amount of right adnexal fluid. The left ovary measures 3.6 x 2.4 x 2.2 cm and contains a dominant follicle as well as normal follicular echotexture and vascularity. No suspicious left adnexal mass. Other: No pathologic free abdominal or pelvic fluid. IMPRESSION: 1. Normal ovaries. 2. No evidence of ovarian torsion or mass. 3. Fibroid uterus. 4. Small amount of nonspecific right adnexal fluid. Dictated by: Aleena Moran M.D. on 01/25/2021 at 21:44 Approved by: Aleena Moran M.D. on 01/25/2021 at 21:49
[2021-01-25 22:11] VITALS: BP 115/80; PULSE 73; RESP 16; O2SAT 99
== END 2021-01-25 22:11 | disposition home or self-care (01) ==
PROVIDERS: Emergency Provider Emergency Medicine; PCP Physician Assistant
DX: R10.30 Lower abdominal pain, unspecified (principal); R11.2 Nausea with vomiting, unspecified; R19.7 Diarrhea, unspecified
CPT/HCPCS: 36415; 74177; 76830; 76856; 80053; 81003; 81025; 83690; 85025; 85610; 85730; 87045; 87077; 87147; 87177; 87329; 87493; 87899; 96361; 96374; 96375; 99284; J2270; J2405; Q9967

== ENCOUNTER → 2021-03-04 07:09 | Outpatient (CLI) | payer OTHER, MEDICAID, SELFPAY ==
[2021-03-06 12:36] LABS: Tissue Transglutaminase IgA <2 U/mL (0-3)
[2021-03-06 17:07] LABS: H. Pylori Antigen Stool Negative (Negative)
== END ==
PROVIDERS: PCP Physician Assistant; Referring Provider Physician Assistant; Visit Provider Physician Assistant
DX: R19.7 Diarrhea, unspecified (principal); R11.0 Nausea
CPT/HCPCS: 36415; 83516; 87338

== ENCOUNTER 2021-03-18 09:42 | Emergency (ER) | payer OTHER, MEDICAID, SELFPAY ==
[2021-03-18 10:12] VITALS: BP 114/68; PULSE 70; RESP 18; TEMP 36.5; O2SAT 100; BMI 25.7
--- NOTE | 2021-03-18 10:32 | DI.CT.S_ITS ---
PROCEDURE: CT FACIAL BONES WO CON INDICATIONS: direct blow TECHNIQUE: Noncontrast 2.5 mm thick axial images acquired from the mandible through the frontal sinuses, with coronal and sagittal reformatting. For radiation dose reduction, the following was used: automated exposure control, adjustment of mA and/or kV according to patient size. COMPARISON: None. FINDINGS: Image quality: Excellent. Bones and teeth: Orbital antunez are intact. Sinus antunez show no fracture or deformity. Nasal bones and septum are intact. Visualized portions of the mandible demonstrate no fractures or subluxation. Zygomatic arches are intact. Pterygoid plates are intact. Visualized portions of the skull base and auditory canals are intact. Sinuses: Paranasal sinuses are aerated, without fluid levels, mucosal thickening, or mucoceles. Mastoid air cells are aerated. Soft tissues: Front scalp hematoma. Vascular: Visualized vascular structures appear normal in the absence of contrast. Bony vascular foramina and canals are intact. IMPRESSION: No visualized fracture. Dictated by: Radha Eden M.D. on 03/18/2021 at 10:46 Approved by: Radha Eden M.D. on 03/18/2021 at 11:03
--- NOTE | 2021-03-18 13:43 | ED_ITS ---
HPI - Head Injury <Tari Murray PA-C - Last Filed: 03/18/21 20:38> General Chief complaint: Head Injury Stated complaint: softball to face Time Seen by Provider: 03/18/21 12:45 Source: patient Mode of arrival: Ambulatory Limitations: no limitations History of Present Illness HPI Narrative: 40-year-old female without past medical history presents to the ER complaining of being hit by a softball on the L forehead yesterday at practice. Unsure how fast it was going, she was wearing sunglasses, she did not lose consciousness, but did note immediate swelling. She applied ice and swel ling is overall improved but today presents ER complaining of bruising around her eyes. States she is feels a little 'drunk' otherwise denies vomiting, headache, eye pain, vision change, or weakness. Related Data Previous Rx's Medication Instructions Recorded cyclobenzaprine 5 mg tablet 5 mg PO TID PRN #10 tab 06/11/19 hydrocodone 5 mg-acetaminophen 325 1 tab PO Q8H PRN #7 tab 06/11/19 mg tablet ([place]) lidocaine 5 % topical patch 1 patch TOP DAILY #15 each 06/11/19 ondansetron 4 mg disintegrating 4 mg PO Q8H PRN #10 tab 01/22/21 tablet dicyclomine 10 mg capsule 10 mg PO TID PRN #21 cap 01/25/21 Allergies Allergy/AdvReac Type Severity Reaction Status Date / Time No Known Drug Allergies Allergy Verified 01/22/21 13:17 Review of Systems <Tari Murray PA-C - Last Filed: 03/18/21 20:38> Review of Systems Narrative: General: denies fever, chills Head/Neck: Reports head trauma. Denies headache, neck pain Eyes: denies visual changes, eye pain Cardio: denies chest pain, palpitations Respiratory: denies shortness of breath, cough GI: denies abdominal pain, nausea, vomiting, or diarrhea : denies dysuria, hematuria MSK: denies joint pain, muscle weakness Skin: denies rash, itching Neuro: denies LOC, numbness, tingling, loss of sensory/motor function Patient History <Tari Murray PA-C - Last Filed: 03/18/21 20:38> Medical History Alopecia Anxiety Depression Social History Smoking Status: Former smoker Smoking Status: Former smoker tobacco type: vaping alcohol intake frequency: a few times a week Substance Use Type: does not use Exam <Tari Murray PA-C - Last Filed: 03/18/21 20:38> Narrative Exam Narrative: Independently reviewed vitals signs and nursing notes. General: Awake, alert, nontoxic, no cardiorespiratory distress Head/Neck: Atraumatic, neck full range of motion Eyes: EOMI, conjunctiva normal Nose: nares patent, no rhinorrhea Mouth/Throat: moist mucus membranes, posterior pharynx normal, no oral lesions Cardio: Regular rate and rhythm, no peripheral edema Respiratory: respirations unlabored without wheezing, stridor, or rales. No retractions. GI: Abdomen soft, nontender MSK: Moves all extremities, neurovascularly intact Skin: Normal capillary refill, no rash Neuro: Normal speech and cognition, normal gait Initial Vital Signs Initial Vital Signs: Vital Signs Temperature 97.7 F 03/18/21 10:12 Pulse Rate 70 03/18/21 10:12 Respiratory Rate 18 03/18/21 10:12 Blood Pressure 114/68 03/18/21 10:12 Pulse Oximetry 100 03/18/21 10:12 <Margarita Ward DO - Last Filed: 03/22/21 08:46> Initial Vital Signs Initial Vital Signs: Vital Signs Temperature 97.7 F 03/18/21 10:12 Pulse Rate 70 03/18/21 10:12 Respiratory Rate 18 03/18/21 10:12 Blood Pressure 114/68 03/18/21 10:12 Pulse Oximetry 100 03/18/21 10:12 Course <Tari Murray PA-C - Last Filed: 03/18/21 20:38> Orders Ordered: ED Orders 03/18/21 10:32 CT facial bones wo con Stat Vital Signs Vital signs: Vital Signs - 8 hr 03/18/21 10:12 Temperature 97.7 F Pulse Rate 70 Respiratory Rate 18 Blood Pressure 114/68 Pulse Oximetry 100 <Margarita Ward DO - Last Filed: 03/22/21 08:46> Orders Ordered: ED Orders 03/18/21 10:32 CT facial bones wo con Stat Vital Signs Vital signs: Vital Signs - 8 hr 03/18/21 10:12 Temperature 97.7 F Pulse Rate 70 Respiratory Rate 18 Blood Pressure 114/68 Pulse Oximetry 100 MDM - Head Injury <Tari Murray PA-C - Last Filed: 03/18/21 20:38> Imaging Data CT Face: Radiologist's Impression: PROCEDURE: CT FACIAL BONES WO CON INDICATIONS: direct blow TECHNIQUE: Noncontrast 2.5 mm thick axial images acquired from the mandible through the frontal sinuses, with coronal and sagittal reformatting. For radiation dose reduction, the following was used: automated exposure control, adjustment of mA and/or kV according to patient size. COMPARISON: None. FINDINGS: Image quality: Excellent. Bones and teeth: Orbital antunez are intact. Sinus antunez show no fracture or deformity. Nasal bones and septum are intact. Visualized portions of the mandible demonstrate no fractures or subluxation. Zygomatic arches are intact. Pterygoid plates are intact. Visualized portions of the skull base and auditory canals are intact. Sinuses: Paranasal sinuses are aerated, without fluid levels, mucosal thickening, or mucoceles. Mastoid air cells are aerated. Soft tissues: Front scalp hematoma. Vascular: Visualized vascular structures appear normal in the absence of contrast. Bony vascular foramina and canals are intact. IMPRESSION: No visualized fracture. Dictated by: Radha Eden M.D. on 03/18/2021 at 10:46 Approved by: Radha Eden M.D. on 03/18/2021 at 11:03 [facility] Narrative Medical decision making narrative: 40-year-old female without past medical history presents to the ER complaining of being hit by a softball on the L forehead yesterday at practice without LOC or neurological findings. Initial ddx to include but not limited to facial fracture, hyphema, retrobulbar hematoma, open globe, orbital fracture, or additional emergent pathology. Vitals WNL. Exam with nontender ecchycmosis to L upper eyelid. ED workup to include CT max face without acute findings. Patient appropriate amenable to discharge home. Likely has mild concussion and discussed concussion protocols. Patient of her brain amenable to discharge home. She can apply ice and take anti-inflammatory medications as needed for pain control. Discharge Plan Departure Patient Disposition: Home Clinical Impression: Struck by softball, initial encounter Concussion without loss of consciousness Qualifiers: Encounter type: initial encounter Qualified Code(s): S06.0X0A - Concussion without loss of consciousness, initial encounter Instructions: Concussion Activity Restrictions/Additional Instructions: *You have been diagnosed with [head injury, mild concussion] *What to do: [ ] New medication prescriptions sent to your pharmacy: [ ] [ ] New medication written as a paper prescription [X] No new medications given * Please follow-up with your primary care provider in 2-3 days, call for an appointment. Let them know you were seen in the emergency department and that we ask you to be seen in follow-up. * if you do not have a primary care provider, please contact the [facility] Resource line at [phone]. They will ask some questions about your medical history and help to get up with a doctor in the community. * Return to the if you should have any new, worsening, or concerning symptoms, such as [ nausea, vomiting, headache, confusion ]. Prescriptions: No Action cyclobenzaprine 5 mg tablet 5 mg PO TID PRN (Reason: muscle spasm) Qty: 10 RF: 0 hydrocodone-acetaminophen [[place]] 5-325 mg tablet 1 tab PO Q8H PRN (Reason: pain) Qty: 7 RF: 0 lidocaine 5 % adhesive patch,medicated 1 patch TOP DAILY Qty: 15 RF: 0 ondansetron 4 mg tablet,disintegrating 4 mg PO Q8H PRN (Reason: nausea and vomiting) Qty: 10 RF: 0 dicyclomine 10 mg capsule 10 mg PO TID PRN (Reason: abdominal pain) Qty: 21 RF: 0 Referrals: Miguelina Schneider PA-C [Primary Care Provider] - Stand Alone Forms: Work Release Note <Margarita Ward DO - Last Filed: 03/22/21 08:46> Cosign ED Attending Odetteature Attestation: I was immediately available in the department for consultation. Documentation has been reviewed, case was discussed with myself. Imaging was reviewed. Agree with plan.
== END 2021-03-18 14:05 | disposition home or self-care (01) ==
PROVIDERS: Emergency Provider Physician Assistant; PCP Physician Assistant
DX: S06.0X0A Concussion without loss of consciousness, initial encounter (principal); W21.07XA Struck by softball, initial encounter
CPT/HCPCS: 70486; 99281; 99284

== ENCOUNTER 2021-03-23 12:01 | Emergency (ER) | payer OTHER, MEDICAID, SELFPAY ==
[2021-03-23 12:14] VITALS: BP 108/68; PULSE 87; RESP 18; TEMP 36.7; O2SAT 100; BMI 25.7
--- NOTE | 2021-03-23 12:17 | DI.RAD.S_ITS ---
PROCEDURE: XR ANKLE LT MIN 3V INDICATIONS: rolled ankle TECHNIQUE: 3 views of the ankle were acquired. COMPARISON: None. FINDINGS: Bones: No fractures or dislocations. Ankle mortise is normally aligned. No suspicious bony lesions. Soft tissues: There is mild soft tissue swelling over the lateral malleolus. No tibiotalar joint effusion. Achilles tendon appears normal. IMPRESSION: 1. No fracture or dislocation. Dictated by: Connor Suazo M.D. on 03/23/2021 at 13:44 Approved by: Connor Suazo M.D. on 03/23/2021 at 13:46
--- NOTE | 2021-03-23 12:18 | PC.NURSE ---
pt states I feel like i'm going to pass out, ekg ordered.
[2021-03-23 14:27] VITALS: BP 122/78; PULSE 77; RESP 18; O2SAT 100
--- NOTE | 2021-03-23 14:29 | PC.NURSE ---
Hit in the face with softball , seen in ER that day. Rolled ankle monday, has residual swelling and now numbness today from mid calf through foot. This morning got dizzy and nauseous while sitting at work.
--- NOTE | 2021-03-23 15:05 | ED.LOWEXIN ---
HPI - Extremity Injury (Lower) General Chief Complaint: Extremity Injury, Lower Stated Complaint: softball injuries, nearly passed out at work Time Seen by Provider: 03/23/21 15:05 Source: patient Mode of arrival: Wheelchair Limitations: no limitations History of Present Illness HPI Narrative: This is a 40-year-old female comes emergency department with near syncope today. Patient was at work. She states she was standing for a period of time and when she started to feel lightheaded, she got sweaty, she felt like she was going to pass out and had be seated. Patient did not lose complete consciousness. She did not fall or hit her head. She denies any chest pain or pressure, no current shortness of breath. No nausea vomiting at this time. No other GI or urinary symptoms. Patient did have a head injury and was seen here in the department after being hit by a softball directly between the eyes and developed quite a bit of ecchymosis which has since moved down below the eyes. On her visit at that time she had a CT of her facial bones which was negative. This injury occurred last Monday, the following Monday patient had a another softball game and twisted her ankle and has had pain and swelling of the left foot. Patient states her foot feels significantly better after yesterday. She states it seems like it is not as painful or sensitive. She denies any reviewed her medical issues. She is not on any anticoagulants. She states she has been eating and sleeping and has not had significant symptoms since her injury other than some headache. Related Data Previous Rx's Medication Instructions Recorded cyclobenzaprine 5 mg tablet 5 mg PO TID PRN #10 tab 06/11/19 hydrocodone 5 mg-acetaminophen 325 1 tab PO Q8H PRN #7 tab 06/11/19 mg tablet ([place]) lidocaine 5 % topical patch 1 patch TOP DAILY #15 each 06/11/19 ondansetron 4 mg disintegrating 4 mg PO Q8H PRN #10 tab 01/22/21 tablet dicyclomine 10 mg capsule 10 mg PO TID PRN #21 cap 01/25/21 Allergies Allergy/AdvReac Type Severity Reaction Status Date / Time No Known Drug Allergies Allergy Verified 01/22/21 13:17 Review of Systems Review of Systems ROS Unobtainable: All systems reviewed & are unremarkable except as noted in HPI and below Patient History Medical History Alopecia Anxiety Depression Social History Smoking Status: Former smoker Smoking Status: Former smoker tobacco type: vaping alcohol intake frequency: a few times a week Substance Use Type: does not use Exam Narrative Exam Narrative: GEN: Patient appears in mild distress. HEAD: No burciaga sign, patient has bilateral raccoon sign was some bruising at the glabellar region as well. NECK: Nontender, painless range of motion, trachea midline. EYES: PERRLA, EOMI ENT: External inspection normal, trachea is midline, Nares are clear,no oral injury, airway is normal and with normal occlusion, No bony tenderness RESP: Chest is nontender and has symmetric movement, no ecchymosis, breath sounds are normal no crackles, wheezes or rales CVS: Heart sounds are normal, no murmur noted, No JVD. ABG/GI: Nontender, soft, normal bowel sounds, no distention, no organomegaly NEURO: Oriented AOx3, neuro is grossly intact, sensation and motor is normal all 4 extremities moving, cranial nerves II through XII are intact, GCS is 15 PSYCH: Normal mood and affect SKIN: Intact, warm and dry, no crepitus and without decubitus BACK: No CVA tenderness, no vertebral tenderness, no step-off's, no crepitus EXT: Left ankle has ecchymosis lateral sides. Patient has some tender at the ankle over the bilateral malleoli. No obvious deformity. Patient has sensation to touch and palpation. 2+ pulse. Cap refill less than 2 seconds in all 5 toes. Patient has full range of motion. Initial Vital Signs Initial Vital Signs: Vital Signs Temperature 98.0 F 03/23/21 12:14 Pulse Rate 87 03/23/21 12:14 Respiratory Rate 18 03/23/21 12:14 Blood Pressure 108/68 03/23/21 12:14 Pulse Oximetry 100 03/23/21 12:14 Scores GCS Maria Elena coma scale eye opening: Spontaneous Maria Elena coma scale verbal response: Orientated Maria Elena coma scale motor response: Obey commands [place] coma scale total score: 15 Course Orders Ordered: ED Orders 03/23/21 12:17 XR ankle LT min 3V Stat 03/23/21 12:23 EKG-12 Lead Stat 03/23/21 15:00 Complete Blood Count AUTO DIFF Stat Comprehensive Metabolic Panel Stat 03/23/21 15:14 CT head/brain wo con Stat Vital Signs Vital signs: Vital Signs - 8 hr 03/23/21 14:27 03/23/21 16:36 Pulse Rate 77 64 Respiratory Rate 18 16 Blood Pressure 122/78 108/66 Pulse Oximetry 100 99 MDM - Extremity Injury (Lower) Lab Data Result diagrams: 03/23/21 15:00 03/23/21 15:00 Labs: Lab Results 03/23/21 03/23/21 Range/Units 15:00 15:00 WBC 6.0 (4.5-11.0) X10^3/uL RBC 3.96 L (4.0-5.2) X10^6/uL Hgb 12.2 (12.0-16.0) g/dL Hct 37.3 (36-46) % MCV 94.1 (80-100) fL MCH 30.8 (26-34) PG MCHC 32.7 (30-36) % RDW 14.8 (11.6-14.8) % Plt Count 192 (150-400) X10^3/uL Neut % (Auto) 70.4 (50-75) % Lymph % (Auto) 23.7 L (25-40) % [place] % (Auto) 4.7 (3-14) % Eos % (Auto) 0.8 L (2-4) % Baso % (Auto) 0.4 (0-2) % Neut # (Auto) 4200 (6392-5690) /uL Lymph # (Auto) 1400 (1889-0737) /uL [place] # (Auto) 300 (0-900) /uL Eos # (Auto) 100 (0-450) /uL Baso # (Auto) 0 (0-100) /uL Sodium 137 (137-145) mmol/L Potassium 3.9 (3.4-5.1) mmol/L Chloride 106 (98-107) mmol/L Carbon Dioxide 26 (22-32) mmol/L BUN 9 (7-17) mg/dL Creatinine 0.59 (0.52-1.04) mg/dL Estimated GFR > 60.0 (>60) mL/min BUN/Creatinine Ratio 15.3 (6-22) Glucose 91 (70-100) mg/dL Calcium 9.3 (8.4-10.2) mg/dL Total Bilirubin 0.5 (0.2-1.3) mg/dL AST 26 (14-36) IU/L ALT 19 (<35) IU/L Alkaline Phosphatase 42 (38-126) U/L Total Protein 6.7 (6.3-8.2) g/dL Albumin 4.0 (3.5-5.0) g/dL Globulin 2.7 (1.7-4.1) g/dL Albumin/Globulin Ratio 1.5 (1.0-2.8) Urine Dip Bedside Urine Glucose Negative Bedside Urine Bilirubin - Negative Bedside Urine Ketone - Negative Urine Specific [place] 1.010 Bedside Urine Occult Blood - Negative Bedside Urine pH 6.0 Bedside Urine Protein - Negative Bedside Urine Urobilinogen - Negative Bedside Urine Nitrite - Negative Bedside Urine Leukocytes - Negative Esterase Imaging Data Extremity x-ray #1: Radiologist's Impression: Verito Vinson S 40 F [address] [id number] ReportSigned Patient: Verito Vinson [facility]#: [id number]: 1980Acct:[id number]/Sex: 40 / FDate of Service: 03/23/21Loc: EDAccession Number: [id number] Procedure: XR ankle LT min 3V Ordering Provider: Margarita Ward D.O. PROCEDURE: XR ANKLE LT MIN 3V INDICATIONS: rolled ankle TECHNIQUE: 3 views of the ankle were acquired. COMPARISON: None. FINDINGS: Bones: No fractures or dislocations. Ankle mortise is normally aligned. No suspicious bony lesions. Soft tissues: There is mild soft tissue swelling over the lateral malleolus. No tibiotalar joint effusion. Achilles tendon appears normal. IMPRESSION: 1. No fracture or dislocation. Dictated by: Connor Suazo M.D. on 03/23/2021 at 13:44 Approved by: Connor Suazo M.D. on 03/23/2021 at 13:46 CT scan - head: Radiologist's Impression: [address] [id number] Scan ReportSigned Patient: Verito Vinson [facility]#: [id number]: 1980Acct:[id number]/Sex: 40 / FDate of Service: 03/23/21Loc: EDAccession Number: [id number] Procedure: CT head/brain wo con Ordering Provider: Margarita Ward D.O. PROCEDURE: CT HEAD/BRAIN WO CON INDICATIONS: near syncope. had head injury softball to face Monday. TECHNIQUE: Noncontrast 4.5 mm thick angled axial sections acquired from the foramen magnum to the vertex, with coronal and sagittal reformats. For radiation dose reduction, the following was used: automated exposure control, adjustment of mA and/or kV according to patient size. COMPARISON: [facility], CT, CT FACIAL BONES WO CON, 03/18/2021, 10:41. FINDINGS: Image quality: Excellent. CSF spaces: Basal cisterns are patent. No extra-axial fluid collections. Ventricles are normal in size and shape. Brain: No midline shift. No intracranial masses or hemorrhage. Leal-white matter interface is normal. Skull and face: Mild left forehead soft tissue swelling is seen, which is improved compared to the 03/18/2021 examination. No underlying calvarial fracture is seen. Calvarium and visualized facial bones are intact, without suspicious lesions. Sinuses: Visualized sinuses and mastoids are clear. IMPRESSION: Improved left forehead soft tissue swelling. No acute intracranial hemorrhage is seen. Dictated by: Triston Torres M.D. on 03/23/2021 at 14:39 Approved by: Triston Torres M.D. on 03/23/2021 at 14:40 ECG Data Interpretation: Sinus rhythm rate of 70 P are 176 QRS of 66 and QTC of 421. No acute change noted. MDM Narrative Medical decision making narrative: This is a 40-year-old female with near syncopal event. Patient was standing for prolonged period of time this may have been a vasovagal/orthostatic event but she did recently have head injury with a softball to the face necessitating CT of facial bones on her last visit. Head CT was performed which was negative. EKG is reassuring labs do not show any major abnormalities. She also subsequently injured her ankle several days later while playing softball again. Patient x-ray does not show any acute changes. She has been able to ambulate on it on suspect she has morbid ankle sprain. Return precautions were discussed. Patient was comfortable this plan she was placed in ortho boot and given crutches. Discharge Plan Departure Patient Disposition: Home Clinical Impression: Head injury, Concussion Instructions: DI for Concussion Activity Restrictions/Additional Instructions: Follow-up in the next week for recheck if you are not continuing to have improvement. Your imaging today of your head as well as your ankle his reassuring. I suspect you do have a significant ankle sprain today. I also suspect you have a concussion causing some of her symptoms as well as the episode today. Please return if you are having severe headaches, new vision changes, recurrent episodes of lightheadedness or passing out, persistent vomiting, new numbness, tingling or weakness of extremities, loss of bowel or bladder control or other new or worsening symptoms. Prescriptions: No Action cyclobenzaprine 5 mg tablet 5 mg PO TID PRN (Reason: muscle spasm) Qty: 10 RF: 0 hydrocodone-acetaminophen [[place]] 5-325 mg tablet 1 tab PO Q8H PRN (Reason: pain) Qty: 7 RF: 0 lidocaine 5 % adhesive patch,medicated 1 patch TOP DAILY Qty: 15 RF: 0 ondansetron 4 mg tablet,disintegrating 4 mg PO Q8H PRN (Reason: nausea and vomiting) Qty: 10 RF: 0 dicyclomine 10 mg capsule 10 mg PO TID PRN (Reason: abdominal pain) Qty: 21 RF: 0 Referrals: Miguelina Schneider PA-C [Primary Care Provider] - Stand Alone Forms: Work Release Note
[2021-03-23 15:10] LABS: Add Manual Diff / Slide Review NO; Basophils Absolute Auto 0 /uL (0-100); Basophils Percent Auto 0.4 % (0-2); Eosinophils Absolute Auto 100 /uL (0-450); Eosinophils Percent Auto 0.8 % (2-4); Hematocrit 37.3 % (36-46); Hemoglobin 12.2 g/dL (12.0-16.0); Lymphocytes Absolute Auto 1400 /uL (1100-4500); Lymphocytes Percent Auto 23.7 % (25-40); Mean Corpuscular HGB Conc 32.7 % (30-36); Mean Corpuscular Hemoglobin 30.8 PG (26-34); Mean Corpuscular Volume 94.1 fL (80-100); Monocytes Absolute Auto 300 /uL (0-900); Monocytes Percent Auto 4.7 % (3-14); Neutrophils Absolute Auto 4200 /uL (1500-7000); Neutrophils Percent Auto 70.4 % (50-75); Platelet Count 192 X10^3/uL (150-400); Red Blood Cell Count 3.96 X10^6/uL (4.0-5.2); Red Cell Distribution Width 14.8 % (11.6-14.8)
--- NOTE | 2021-03-23 15:14 | DI.CT.S_ITS ---
PROCEDURE: CT HEAD/BRAIN WO CON INDICATIONS: near syncope. had head injury softball to face Monday. TECHNIQUE: Noncontrast 4.5 mm thick angled axial sections acquired from the foramen magnum to the vertex, with coronal and sagittal reformats. For radiation dose reduction, the following was used: automated exposure control, adjustment of mA and/or kV according to patient size. COMPARISON: [facility], CT, CT FACIAL BONES WO CON, 03/18/2021, 10:41. FINDINGS: Image quality: Excellent. CSF spaces: Basal cisterns are patent. No extra-axial fluid collections. Ventricles are normal in size and shape. Brain: No midline shift. No intracranial masses or hemorrhage. Leal-white matter interface is normal. Skull and face: Mild left forehead soft tissue swelling is seen, which is improved compared to the 03/18/2021 examination. No underlying calvarial fracture is seen. Calvarium and visualized facial bones are intact, without suspicious lesions. Sinuses: Visualized sinuses and mastoids are clear. IMPRESSION: Improved left forehead soft tissue swelling. No acute intracranial hemorrhage is seen. Dictated by: Triston Torres M.D. on 03/23/2021 at 14:39 Approved by: Triston Torres M.D. on 03/23/2021 at 14:40
[2021-03-23 15:19] LABS: Alanine Aminotransferase 19 IU/L (<35); Albumin Globulin Ratio 1.5 (1.0-2.8); Alkaline Phosphatase 42 U/L (38-126); Aspartate Aminotransferase 26 IU/L (14-36); BUN Creatinine Ratio 15.3 (6-22); Bilirubin Total 0.5 mg/dL (0.2-1.3); Blood Urea Nitrogen 9 mg/dL (7-17); Calcium 9.3 mg/dL (8.4-10.2); Carbon Dioxide 26 mmol/L (22-32); Chloride 106 mmol/L (98-107); Estimated Glomerular Filt Rate > 60.0 mL/min (>60); Globulin 2.7 g/dL (1.7-4.1); Glucose 91 mg/dL (70-100); HEMOLYSIS < 15 (0-50); Potassium 3.9 mmol/L (3.4-5.1); Sodium 137 mmol/L (137-145); Total Protein 6.7 g/dL (6.3-8.2)
[2021-03-23 16:36] VITALS: BP 108/66; PULSE 64; RESP 16; O2SAT 99
== END 2021-03-23 16:36 | disposition home or self-care (01) ==
PROVIDERS: Emergency Provider Emergency Medicine; PCP Physician Assistant
DX: S06.0X0A Concussion without loss of consciousness, initial encounter (principal); S99.912A Unspecified injury of left ankle, initial encounter; R07.9 Chest pain, unspecified; W19.XXXA Unspecified fall, initial encounter
CPT/HCPCS: 36415; 70450; 73610; 80053; 81003; 85025; 93005; 93010; 99284

== ENCOUNTER → 2021-04-27 06:42 | Outpatient (CLI) | payer OTHER, MEDICAID, SELFPAY ==
--- NOTE | 2021-04-27 | DI.MRI.S_ITS ---
PROCEDURE: MR ANKLE LT WO CON INDICATIONS: Pain in left ankle and joints of left foot TECHNIQUE: Noncontrast sagittal T1 spin echo and T2 fast spin echo with fat saturation, axial proton density fast spin echo and T2 fast spin echo with fat saturation, coronal T1 spin echo and T2 fast spin echo with fat saturation through the ankle/hindfoot. COMPARISON: [facility], CR, XR ANKLE LT MIN 3V, 03/23/2021, 13:27. FINDINGS: Image quality: Excellent. Bones and joints: There are areas of bone marrow edema in the medial malleolus, medial aspect of the talus, and medial aspect of the calcaneus along the subtalar joint likely representing bone contusions. The differential includes nondisplaced avulsion injuries. There is also a region of bone marrow edema within the lateral aspect of the distal tibia extending to the tibial fibular syndesmosis consistent with a bone contusion or reactive changes secondary to a syndesmotic sprain. No associated discrete fracture. No hindfoot coalitions. No osteochondral injuries of the talar dome. There are small tibiotalar and subtalar joint effusions. Medial structures: The posterior tibialis, flexor digitorum longus, and flexor hallucis longus tendons are intact with a small amount of tenosynovial fluid. The posterior tibial neurovascular bundle appears normal within the tarsal tunnel, without extrinsic mass effect. The deep and superficial layers of the deltoid ligament are attenuated in signal with periligamentous edema consistent with moderate to severe sprains. The spring ligament components appear intact. Lateral structures: The anterior talofibular and calcaneofibular ligaments appear thickened and attenuated in signal with periligamentous edema consistent with moderate to severe sprains. There is a mild to moderate sprain of the posterior talofibular ligament. More superiorly, the anterior and posterior tibiofibular ligaments appear intact, as is the intermalleolar ligament. The tibiofibular syndesmosis is normal in width at 2 mm or less. The peroneus longus and brevis tendons demonstrate normal location and morphology with a small amount of tenosynovial fluid and mild peritendinous edema. Adjacent bony peroneal tubercle and retrotrochlear prominence are normal in size but demonstrate mild adjacent overlying soft tissue edema. The sinus tarsi demonstrates preserved fatty signal. The calcaneonavicular and calcaneocuboid components of the bifurcate ligament appear intact. The dorsal calcaneocuboid ligament appears intact. Anterior structures: The tibialis anterior, extensor hallucis longus, and extensor digitorum longus tendons appear intact. The dorsal talonavicular ligament appears intact. Posterior and plantar structures: Achilles tendon is intact. Medial and lateral bands of the plantar fascia are of normal thickness. No abductor digiti quinti muscle atrophy to suggest [place] neuropathy. IMPRESSION: 1. Multiple areas of bone marrow edema within the medial malleolus, medial talus, medial calcaneus, and lateral distal tibia as described likely representing bone contusions or nondisplaced avulsion stress changes. No discrete displaced fracture identified. 2. Moderate to severe sprain of the deltoid ligament. 3. Moderate to severe sprains of the anterior talofibular and calcaneofibular ligaments as well as a mild sprain of the posterior talofibular ligament. 4. Tenosynovitis and peritendinitis along the peroneal tendons which appear intact. 5. Small tibiotalar and subtalar joint effusions. Dictated by: Connor Suazo M.D. on 04/27/2021 at 16:36 Approved by: Connor Suazo M.D. on 04/27/2021 at 16:58
== END ==
PROVIDERS: PCP Physician Assistant; Referring Provider Physician Assistant; Visit Provider Physician Assistant
DX: M25.572 Pain in left ankle and joints of left foot (principal); S93.422A Sprain of deltoid ligament of left ankle, initial encounter; S93.492A Sprain of other ligament of left ankle, initial encounter; S93.412A Sprain of calcaneofibular ligament of left ankle, initial encounter; M65.872 Other synovitis and tenosynovitis, left ankle and foot; M77.52 Other enthesopathy of left foot and ankle; M25.472 Effusion, left ankle
CPT/HCPCS: 73721

== ENCOUNTER → 2021-06-24 10:56 | Outpatient (ROUT) | payer OTHER, MEDICAID, SELFPAY ==
[2021-06-24 11:34] LABS: COVID19 -Nasal RAPID Negative (Negative)
== END ==
PROVIDERS: PCP Physician Assistant; Visit Provider Physician Assistant
DX: Z20.822 Contact with and (suspected) exposure to COVID-19 (principal)
CPT/HCPCS: 87635

== ENCOUNTER 2022-04-15 11:15 | Emergency (ER) | payer OTHER, MEDICAID, SELFPAY ==
[2022-04-15 11:28] VITALS: BP 135/91; PULSE 104; RESP 17; TEMP 37.2; O2SAT 99; BMI 28.9
== END 2022-04-15 11:55 | disposition left against medical advice (07) ==
PROVIDERS: Emergency Provider Emergency Medicine; PCP Physician Assistant
CPT/HCPCS: 81002; 81025; 99281

== ENCOUNTER → 2023-04-24 17:43 | Outpatient (CLI) | payer OTHER, SELFPAY ==
[2023-04-24 19:14] LABS: Alanine Aminotransferase 16 IU/L (<35); Albumin 4.2 g/dL (3.5-5.0); Albumin Globulin Ratio 1.4 (1.0-2.8); Alkaline Phosphatase 46 U/L (38-126); Aspartate Aminotransferase 23 IU/L (14-36); BUN Creatinine Ratio 11.3 (6-22); Bilirubin Total 0.3 mg/dL (0.2-1.3); Blood Urea Nitrogen 8 mg/dL (7-17); Calcium 9.1 mg/dL (8.4-10.2); Carbon Dioxide 26 mmol/L (22-32); Chloride 103 mmol/L (98-107); Estimated Glomerular Filt Rate > 60 mL/min (>60); Glucose 106 mg/dL (70-100); HEMOLYSIS < 15 (0-50); Potassium 3.5 mmol/L (3.4-5.1); Sodium 136 mmol/L (137-145); Total Protein 7.2 g/dL (6.3-8.2)
[2023-04-24 22:03] LABS: Hepatitis B Surface Antigen NEGATIVE s/c (NEGATIVE)
[2023-04-24 22:18] LABS: HIV 1 & 2 Ab/Ag 4th Gen Combo NEGATIVE (NEGATIVE); Hep C Virus Ab w/Reflex Quant NEGATIVE s/c (NEGATIVE)
[2023-04-26 00:08] LABS: Hepatitis B Surf AB Quant <3.1 mIU/mL (Immunity>9.9)
[2023-04-26 09:17] LABS: RPR Screen Non Reactive (Non Reactive)
== END ==
PROVIDERS: PCP Nurse Practitioner Family; Referring Provider Nurse Practitioner Family; Visit Provider Nurse Practitioner Family
DX: F41.9 Anxiety disorder, unspecified (principal); Z11.59 Encounter for screening for other viral diseases; Z13.1 Encounter for screening for diabetes mellitus; Z11.3 Encounter for screening for infections with a predominantly sexual mode of transmission
CPT/HCPCS: 80053; 84436; 86592; 86706; 86803; 87340; 87389

== ENCOUNTER → 2023-05-27 12:28 | Outpatient (CLI) | payer OTHER, SELFPAY ==
[2023-05-27 13:49] LABS: Alanine Aminotransferase 21 IU/L (<35); Albumin 4.1 g/dL (3.5-5.0); Albumin Globulin Ratio 1.5 (1.0-2.8); Alkaline Phosphatase 48 U/L (38-126); Aspartate Aminotransferase 22 IU/L (14-36); BUN Creatinine Ratio 10.2 (6-22); Bilirubin Total 0.5 mg/dL (0.2-1.3); Blood Urea Nitrogen 9 mg/dL (7-17); Calcium 9.5 mg/dL (8.4-10.2); Carbon Dioxide 25 mmol/L (22-32); Chloride 104 mmol/L (98-107); Estimated Glomerular Filt Rate > 60 mL/min (>60); Globulin 2.8 g/dL (1.7-4.1); Glucose 69 mg/dL (70-100); HEMOLYSIS < 15 (0-50); Potassium 4.1 mmol/L (3.4-5.1); Sodium 137 mmol/L (137-145); Total Protein 6.9 g/dL (6.3-8.2)
[2023-05-27 14:20] LABS: TSH w/ Reflex to FT4 1.77 uIU/mL (0.47-4.68)
[2023-05-27 14:48] LABS: Urine N gonorrhoeae NOT DETECTED
[2023-05-27 15:07] LABS: Urine Chlamydia NOT DETECTED
== END ==
PROVIDERS: PCP Nurse Practitioner Family; Referring Provider Nurse Practitioner Family; Visit Provider Nurse Practitioner Family
DX: F41.9 Anxiety disorder, unspecified (principal); Z11.59 Encounter for screening for other viral diseases; Z13.1 Encounter for screening for diabetes mellitus; Z11.3 Encounter for screening for infections with a predominantly sexual mode of transmission
CPT/HCPCS: 36415; 80053; 84443; 87491; 87591; 87661

== ENCOUNTER 2023-06-17 20:08 | Emergency (ER) | payer OTHER, SELFPAY ==
[2023-06-17 20:11] VITALS: BP 132/81; PULSE 82; RESP 16; TEMP 37.2; O2SAT 99; BMI 31.4
[2023-06-17 20:49] LABS: Add Manual Diff / Slide Review NO; Basophils Absolute Auto 100 /uL (0-100); Basophils Percent Auto 0.9 % (0-2); Eosinophils Absolute Auto 200 /uL (0-450); Eosinophils Percent Auto 3.3 % (2-4); Hematocrit 32.1 % (36-46); Hemoglobin 10.3 g/dL (12.0-16.0); Lymphocytes Absolute Auto 2500 /uL (1100-4500); Lymphocytes Percent Auto 36.8 % (25-40); Mean Corpuscular Hemoglobin 26.1 PG (26-34); Mean Corpuscular Volume 81.5 fL (80-100); Monocytes Absolute Auto 500 /uL (0-900); Monocytes Percent Auto 7.4 % (3-14); Neutrophils Absolute Auto 3500 /uL (1500-7000); Neutrophils Percent Auto 51.6 % (50-75); Platelet Count 271 X10^3/uL (150-400); Red Blood Cell Count 3.93 X10^6/uL (4.0-5.2); Red Cell Distribution Width 16.1 % (11.6-14.8); White Blood Cell Count 6.8 X10^3/uL (4.5-11.0)
[2023-06-17 20:57] LABS: Alanine Aminotransferase 19 IU/L (<35); Albumin 3.9 g/dL (3.5-5.0); Albumin Globulin Ratio 1.3 (1.0-2.8); Alkaline Phosphatase 47 U/L (38-126); Aspartate Aminotransferase 23 IU/L (14-36); BUN Creatinine Ratio 8.8 (6-22); Bilirubin Total 0.1 mg/dL (0.2-1.3); Blood Urea Nitrogen 6 mg/dL (7-17); Calcium 8.7 mg/dL (8.4-10.2); Carbon Dioxide 28 mmol/L (22-32); Chloride 104 mmol/L (98-107); Estimated Glomerular Filt Rate > 60 mL/min (>60); Globulin 2.9 g/dL (1.7-4.1); Glucose 100 mg/dL (70-100); HEMOLYSIS 16 (0-50); Lipase 213 U/L (23-300); Potassium 3.9 mmol/L (3.4-5.1); Sodium 137 mmol/L (137-145); Total Protein 6.8 g/dL (6.3-8.2)
[2023-06-17 22:51] VITALS: BP 118/77
[2023-06-17 22:52] VITALS: PULSE 76; O2SAT 100
--- NOTE | 2023-06-17 22:54 | DI.CT.S_ITS ---
PROCEDURE: CT ABDOMEN PELVIS W CON INDICATIONS: Lower abdominal pain x 1 week. TECHNIQUE: After the administration of intravenous contrast, axial sections acquired from the lung bases to the pubic symphysis. Coronal and sagittal reformats were performed. For radiation dose reduction, the following was used: automated exposure control, adjustment of mA and/or kV according to patient size. COMPARISON: [facility], CT, CT ABDOMEN PELVIS W CON, 01/25/2021, 18:40. FINDINGS: Image quality: Excellent. Lung bases: Unremarkable. Heart: No significant findings. ABDOMEN: Liver: Unremarkable. Gallbladder: Partially contracted. Biliary ducts: Unremarkable. Pancreas: Unremarkable. Spleen: Unremarkable. Adrenal Glands: Unremarkable. Kidneys and Ureters: Unremarkable. Stomach and Bowel: Stomach, small bowel loops, and colon are unremarkable. Peritoneum: No abnormal intraperitoneal fluid. No free air. Ventral Wall: No hernias. Abdominal Nodes: No retroperitoneal or mesenteric adenopathy by size criteria. Vessels: Aorta and inferior vena cava are normal in size. PELVIS: Pelvic Organs: The uterus demonstrates multiple uterine fibroids, as had been previously the case during CT scanning 01/25/21. A dominant complex presumed partially necrotic fibroid is noted at the anterior left lower uterine segment, subserosal. This measures up to 4.3 cm in maximal dimension and has mildly enlarged from 2020. Bladder: Unremarkable. Pelvic Nodes: No enlarged lymph nodes. Miscellaneous: No hernias are seen. Bones: Unremarkable. IMPRESSION: Multiple uterine fibroids 1 of which appears partially necrotic with internal liquid and has mildly enlarged from its appearance in January of [address] scanning. No additional significant change has occurred. Dictated by: Rubin Payne M.D. on 06/18/2023 at 0:29 Approved by: Rubin Payne M.D. on 06/18/2023 at 0:32
--- NOTE | 2023-06-17 22:54 | DI.US.S_ITS ---
PROCEDURE: US PELVIC COMPLETE INDICATIONS: lower pain x 1 week TECHNIQUE: Real-time scanning was performed of the pelvic organs, with image documentation. Additional endovaginal scanning was necessary due to incomplete visualization of the adnexal and endometrial structures by transabdominal scanning. COMPARISON: [facility], US, US PELVIC COMPLETE, 01/25/2021, 20:58. FINDINGS: Uterus: Uterus is anteverted and normal in size at 6.2 x 7.9 x 11.1 cm. The myometrium is moderately heterogeneous containing scattered uterine fibroids. The endometrium measures 6.5 mm combined thickness. Ovaries: The right ovary measures 2.4 x 3.7 x 2.3 cm, with a calculated ovarian volume of 10.7 cc which includes a 2.4 x 1.7 x 2.3 cm simple cyst. The left ovary measures 1.8 x 1.3 x 1.0 cm, with a calculated ovarian volume of 1.2 cc. The ovaries have a normal sonographic appearance. Less than 12 follicles can be seen in each ovary. No adnexal masses are seen. Other: No pathologic free abdominal or pelvic fluid. IMPRESSION: No evidence for ovarian torsion, incidental note is made of several scattered uterine fibroids. For example, on the right posteriorly an intramural fibroid measures up to 3.7 cm and on the left anteriorly an intramural fibroid measures up to 4.4 cm. Simple small right ovarian cyst incidentally noted. Dictated by: Rubin Payne M.D. on 06/18/2023 at 0:23 Approved by: Rubin Payne M.D. on 06/18/2023 at 0:25
[2023-06-17 23:13] VITALS: PULSE 88; O2SAT 97
[2023-06-17] MEDS: KETOROLAC 30 MG/ML VIAL 15 MG IV (23:16)
[2023-06-17 23:22] LABS: Bacteria Urine None Seen; Culture Indicated Urine Cult Not Indicated; RBC Urine None Seen (0-5/HPF); Squamous Epithelial Cell Urine 1-5 /HPF (0-5/HPF); WBC Urine None Seen (0-5/HPF)
[2023-06-17 23:25] LABS: COVID19 -Nasal RAPID Negative (Negative)
[2023-06-17 23:42] VITALS: PULSE 103; O2SAT 85
[2023-06-17 23:48] VITALS: BP 108/64; PULSE 89; O2SAT 98
[2023-06-18] VITALS: BP 100/58; PULSE 85; O2SAT 98
--- NOTE | 2023-06-18 00:24 | ED.ABDPAIN ---
HPI - Abdominal Pain General Chief Complaint: Abdominal Pain Stated Complaint: Stomach pain Time Seen by Provider: 06/17/23 22:54 Source: patient Mode of arrival: Ambulatory History of Present Illness HPI narrative: Patient 42-year-old female without significant medical history presenting today with ongoing lower abdominal pain. She reports that over the last 4 days it has gotten much worse. She denies any nausea vomiting or change in bowel or bladder habits. She denies any fever. She is been taking Tylenol ibuprofen without any relief. Related Data Previous Rx's Medication Instructions Recorded cyclobenzaprine 5 mg tablet 5 mg PO TID PRN muscle spasm #10 06/11/19 tabs hydrocodone 5 mg-acetaminophen 325 1 tab PO Q8H PRN pain #7 tabs 06/11/19 mg tablet ([place]) lidocaine 5 % topical patch 1 patch topical DAILY #15 ea 06/11/19 ondansetron 4 mg disintegrating 4 mg PO Q8H PRN nausea and 01/22/21 tablet vomiting #10 tabs dicyclomine 10 mg capsule 10 mg PO TID PRN abdominal pain 01/25/21 #21 caps hydrocodone 5 mg-acetaminophen 325 1 tab PO Q6H PRN pain #10 tabs 06/18/23 mg tablet ondansetron 4 mg disintegrating 4 mg PO Q8H PRN nausea and 06/18/23 tablet vomiting #20 tabs Allergies Allergy/AdvReac Type Severity Reaction Status Date / Time No Known Drug Allergies Allergy Verified 04/15/22 11:28 Review of Systems Review of Systems ROS Unobtainable: All systems reviewed & are unremarkable except as noted in HPI and below Patient History Medical History Alopecia Depression Anxiety Social History Smoking Status: Former smoker Smoking Status: Former smoker tobacco type: vaping alcohol intake frequency: a few times a week Substance Use Type: marijuana Exam Initial Vital Signs Initial Vital Signs: Vital Signs Temperature 98.9 F 06/17/23 20:11 Pulse Rate 82 06/17/23 20:11 Respiratory Rate 16 06/17/23 20:11 Blood Pressure 132/81 06/17/23 20:11 Pulse Oximetry 99 06/17/23 20:11 Oxygen Delivery Method Room Air 06/17/23 20:11 GENERAL: Alert pleasant well-appearing 42-year-old female and in no acute distress. HEENT: Head atraumatic,EOMI, pupils reactive, face symmetric, moist mucous membranes CARDIOVASCULAR: Regular rate and rhythm without murmurs, rubs or gallops. RESPIRATORY: Breath sounds equal bilaterally, no wheezes rales or rhonchi. ABDOMEN: Soft, lower abdominal pain slightly more on right than left guarding no distention no rebound negative Kwong sign no epigastric pain : No CVA tenderness EXTREMITIES: Normal range of motion, no clubbing or edema. Neurovascularly intact NEUROLOGICAL: Alert and oriented x4. SKIN: Warm, dry, no laceration, no petechiae, no rashes or lesions. Course Orders Ordered: ED Orders 06/17/23 20:26 Complete Blood Count AUTO DIFF Stat Comprehensive Metabolic Panel Stat Lipase Stat 06/17/23 22:05 Urine Microscopic Stat 06/17/23 22:54 CT abdomen pelvis w con Stat US pelvic complete Stat 06/17/23 22:56 COVID19 -Nasal RAPID Stat Discontinued Medications Hydrocodone Bitart/Acetaminophen (Hydrocodone/Acet 5/325 Prepack) 1 bottle MISC SEEINSTR ONE Stop: 06/18/23 01:26 Last Admin: 06/18/23 01:35 Dose: 1 bottle Documented By: CELESTINO Ketorolac Tromethamine (Ketorolac 30 Mg/Ml Vial) 15 mg IV NOW ONE Stop: 06/17/23 22:55 Last Admin: 06/17/23 23:16 Dose: 15 mg Documented By: DOROTHY Morphine Sulfate (Morphine 4 Mg/Ml Inj) 4 mg IV NOW ONE Stop: 06/18/23 01:26 Last Admin: 06/18/23 01:34 Dose: 4 mg Documented By: CELESTINO Ondansetron HCl (Ondansetron 4 Mg Odt) 4 mg PO NOW PRN PRN Reason: Nausea And Vomiting Ondansetron HCl (Ondansetron 4 Mg/2 Ml Inj) 4 mg IV NOW PRN PRN Reason: Nausea And Vomiting Vital Signs Vital signs: Vital Signs - 8 hr 06/17/23 22:51 06/17/23 22:52 06/17/23 23:13 Temperature Pulse Rate 76 88 Respiratory Rate Blood Pressure 118/77 Pulse Oximetry 100 97 06/17/23 23:42 06/17/23 23:48 06/17/23 23:48 Temperature Pulse Rate 103 H 89 Respiratory Rate Blood Pressure 108/64 Pulse Oximetry 85 L 98 06/18/23 00:00 06/18/23 00:00 06/18/23 00:30 Temperature Pulse Rate 85 90 Respiratory Rate Blood Pressure 100/58 L Pulse Oximetry 98 99 06/18/23 01:01 06/18/23 01:30 06/18/23 01:43 Temperature 97.5 F L Pulse Rate 97 H 70 Respiratory Rate 16 Blood Pressure 100/58 L Pulse Oximetry 99 99 98 06/18/23 01:43 Temperature Pulse Rate 74 Respiratory Rate Blood Pressure Pulse Oximetry MDM - Abdominal Pain Lab Data 06/17/23 20:26 06/17/23 20:26 Labs: Lab Results 06/17/23 06/17/23 06/17/23 Range/Units 20:26 22:05 22:56 WBC 6.8 (4.5-11.0) X10^3/uL RBC 3.93 L (4.0-5.2) X10^6/uL Hgb 10.3 L (12.0-16.0) g/dL Hct 32.1 L (36-46) % MCV 81.5 (80-100) fL MCH 26.1 (26-34) PG MCHC 32.0 (30-36) % RDW 16.1 H (11.6-14.8) % Plt Count 271 (150-400) X10^3/uL Neut % (Auto) 51.6 (50-75) % Lymph % (Auto) 36.8 (25-40) % [place] % (Auto) 7.4 (3-14) % Eos % (Auto) 3.3 (2-4) % Baso % (Auto) 0.9 (0-2) % Neut # (Auto) 3500 (6865-9468) /uL Lymph # (Auto) 2500 (6176-6555) /uL [place] # (Auto) 500 (0-900) /uL Eos # (Auto) 200 (0-450) /uL Baso # (Auto) 100 (0-100) /uL Sodium 137 (137-145) mmol/L Potassium 3.9 (3.4-5.1) mmol/L Chloride 104 (98-107) mmol/L Carbon Dioxide 28 (22-32) mmol/L BUN 6 L (7-17) mg/dL Creatinine 0.68 (0.52-1.04) mg/dL Estimated GFR > 60 (>60) mL/min BUN/Creatinine Ratio 8.8 (6-22) Glucose 100 (70-100) mg/dL Calcium 8.7 (8.4-10.2) mg/dL Total Bilirubin 0.1 L (0.2-1.3) mg/dL AST 23 (14-36) IU/L ALT 19 (<35) IU/L Alkaline Phosphatase 47 (38-126) U/L Total Protein 6.8 (6.3-8.2) g/dL Albumin 3.9 (3.5-5.0) g/dL Globulin 2.9 (1.7-4.1) g/dL Albumin/Globulin Ratio 1.3 (1.0-2.8) Lipase 213 (23-300) U/L Urine RBC None seen (0-5/HPF) Urine WBC None seen (0-5/HPF) Ur Squamous Epith Cells 1-5 /hpf (0-5/HPF) Urine Bacteria None seen (None) Ur Culture Indicated? Cult not indicated SARS-CoV-2 (PCR) Negative (Negative) Point of care testing: Urine Dip Bedside Urine Glucose Negative Bedside Urine Bilirubin + 1 Bedside Urine Ketone - Negative Urine Specific [place] 1.025 Bedside Urine Occult Blood - Negative Bedside Urine pH 6.0 Bedside Urine Protein - Negative Bedside Urine Urobilinogen - Negative Bedside Urine Nitrite - Negative Bedside Urine Leukocytes +/- 15 Esterase Imaging Data US - abdomen: Radiologist's Impression: PROCEDURE: US PELVIC COMPLETE INDICATIONS: lower pain x 1 week TECHNIQUE: Real-time scanning was performed of the pelvic organs, with image documentation. Additional endovaginal scanning was necessary due to incomplete visualization of the adnexal and endometrial structures by transabdominal scanning. COMPARISON: [facility], US, US PELVIC COMPLETE, 01/25/2021, 20:58. FINDINGS: Uterus: Uterus is anteverted and normal in size at 6.2 x 7.9 x 11.1 cm. The myometrium is moderately heterogeneous containing scattered uterine fibroids. The endometrium measures 6.5 mm combined thickness. Ovaries: The right ovary measures 2.4 x 3.7 x 2.3 cm, with a calculated ovarian volume of 10.7 cc which includes a 2.4 x 1.7 x 2.3 cm simple cyst. The left ovary measures 1.8 x 1.3 x 1.0 cm, with a calculated ovarian volume of 1.2 cc. The ovaries have a normal sonographic appearance. Less than 12 follicles can be seen in each ovary. No adnexal masses are seen. Other: No pathologic free abdominal or pelvic fluid. IMPRESSION: No evidence for ovarian torsion, incidental note is made of several scattered uterine fibroids. For example, on the right posteriorly an intramural fibroid measures up to 3.7 cm and on the left anteriorly an intramural fibroid measures up to 4.4 cm. Simple small right ovarian cyst incidentally noted. Dictated by: Rubin Payne M.D. on 06/18/2023 at 0:23 Approved by: Rubin Payne M.D. on 06/18/2023 at 0:25 CT scan - abdomen/pelvis: Radiologist's Impression: PROCEDURE: CT ABDOMEN PELVIS W CON INDICATIONS: Lower abdominal pain x 1 week. TECHNIQUE: After the administration of intravenous contrast, axial sections acquired from the lung bases to the pubic symphysis. Coronal and sagittal reformats were performed. For radiation dose reduction, the following was used: automated exposure control, adjustment of mA and/or kV according to patient size. COMPARISON: [facility], CT, CT ABDOMEN PELVIS W CON, 01/25/2021, 18:40. FINDINGS: Image quality: Excellent. Lung bases: Unremarkable. Heart: No significant findings. ABDOMEN: Liver: Unremarkable. Gallbladder: Partially contracted. Biliary ducts: Unremarkable. Pancreas: Unremarkable. Spleen: Unremarkable. Adrenal Glands: Unremarkable. Kidneys and Ureters: Unremarkable. Stomach and Bowel: Stomach, small bowel loops, and colon are unremarkable. Peritoneum: No abnormal intraperitoneal fluid. No free air. Ventral Wall: No hernias. Abdominal Nodes: No retroperitoneal or mesenteric adenopathy by size criteria. Vessels: Aorta and inferior vena cava are normal in size. PELVIS: Pelvic Organs: The uterus demonstrates multiple uterine fibroids, as had been previously the case during CT scanning 01/25/21. A dominant complex presumed partially necrotic fibroid is noted at the anterior left lower uterine segment, subserosal. This measures up to 4.3 cm in maximal dimension and has mildly enlarged from 2020. Bladder: Unremarkable. Pelvic Nodes: No enlarged lymph nodes. Miscellaneous: No hernias are seen. Bones: Unremarkable. IMPRESSION: Multiple uterine fibroids 1 of which appears partially necrotic with internal liquid and has mildly enlarged from its appearance in January of [address] scanning. No additional significant change has occurred. Dictated by: Rubin Payne M.D. on 06/18/2023 at 0:29 MDM Narrative Medical decision making narrative: Patient is a 42-year-old female who presents with lower abdominal pain progressively getting worse over the last few days. No fever chills nausea or vomiting. Blood work has been reviewed overall reassuring without clinically significant abnormalities she is no leukocytosis mild anemia hemoglobin 10.3 hematocrit 32.1. Imaging reviewed both ultrasound and CT show fibroids. CT suggestive of the partially necrotic fibroid which is mildly enlarged. Dr. Walsh on-call OBGYN updated patient's symptoms test results at this time supportive care only. Patient informed of results and recommendations. She was unaware of uterine fibroids. She denies any significant heavy menstrual cycles. She thinks she is to start cycle which would make sense of why her pain is much worse. She is given Toradol and morphine which seems to help. At this time recommend outpatient follow-up and supportive care Discharge Plan Departure Patient Disposition: Home Clinical Impression: Fibroid Instructions: DI for Uterine Fibroids Activity Restrictions/Additional Instructions: *You have been diagnosed with uterine fibroids *What to do: At this time pain control only. I do recommend following up with OBGYN. *Continue to take medications as directed Ibuprofen 600 mg every 6 hours if needed for [id number] pain [place] tablets every 6 hours if needed for severe pain Zofran 4 mg every 8 hours if needed for nausea or vomiting *Follow up with your primary care provider in 2-3 days or call [phone] *Return to ER if you should have increasing pain nausea vomiting fever [or] any new, worsening or concerning symptoms CONTROLLED SUBSTANCE DISCHARGE (Narcotoic/benzodiazepine/Flexeril/Phenergan) 1. You have been prescribed narcotic medications, it does have acetaminophen/Tylenol/paracetamol in it, DO NOT TAKE MORE THAN 4,00mg in 24 hours of Tylenol. TRAMADOL DOES NOT CONTAIN TYLENOL 2. Please understand that we cannot provide further refills of narcotics, benzodiazepines or controlled substances through the ED and her pain management will need to be through your provider. 3. While on these medications you cannot drive or operate heavy machinery. 4. You cannot sign legal documents or perform any duties such as this. 5. As long as you're taking opiate pain medications he should also be taking a stool softener such as Colace, Dulcolax, MiraLAX or prune juice, to help avoid constipation. Prescriptions: New hydrocodone-acetaminophen 5-325 mg tablet 1 tab PO Q6H PRN (Reason: pain) Qty: 10 0RF ondansetron 4 mg tablet,disintegrating 4 mg PO Q8H PRN (Reason: nausea and vomiting) Qty: 20 0RF No Action cyclobenzaprine 5 mg tablet 5 mg PO TID PRN (Reason: muscle spasm) Qty: 10 0RF hydrocodone-acetaminophen [[place]] 5-325 mg tablet 1 tab PO Q8H PRN (Reason: pain) Qty: 7 0RF lidocaine 5 % adhesive patch,medicated 1 patch TOP DAILY Qty: 15 0RF Rx Instructions: leave on most painful area for up to 12 hrs ondansetron 4 mg tablet,disintegrating 4 mg PO Q8H PRN (Reason: nausea and vomiting) Qty: 10 0RF dicyclomine 10 mg capsule 10 mg PO TID PRN (Reason: abdominal pain) Qty: 21 0RF Referrals: Allyn Garcia RN [Primary Care Provider] - Stand Alone Forms: Patient Portal/API
[2023-06-18 00:30] VITALS: PULSE 90; O2SAT 99
[2023-06-18 01:01] VITALS: PULSE 97; O2SAT 99
[2023-06-18 01:30] VITALS: PULSE 70; O2SAT 99
[2023-06-18] MEDS: MORPHINE 4 MG/ML INJ IV (01:34)
[2023-06-18] MEDS: HYDROCODONE/ACET 5/325 PREPACK 1 BOTTLE MISC (01:35)
[2023-06-18 01:43] VITALS: BP 100/58; PULSE 74; RESP 16; TEMP 36.4; O2SAT 98
== END 2023-06-18 01:47 | disposition home or self-care (01) ==
PROVIDERS: Emergency Provider Emergency Medicine; PCP Nurse Practitioner Family
DX: D25.1 Intramural leiomyoma of uterus (principal); Z20.822 Contact with and (suspected) exposure to COVID-19
CPT/HCPCS: 36415; 74177; 76830; 76856; 80053; 81003; 81015; 83690; 85025; 87635; 93976; 96374; 96375; 99284; C9803; J1885; J2270; Q9967

== ENCOUNTER 2023-07-03 17:52 | Observation (INO) | payer OTHER, SELFPAY ==
[2023-07-03] VITALS (14 sets, daily range): BP systolic 111–144; BP diastolic 61–91; PULSE 57–90; RESP 16–20; TEMP 36.6–37.1; O2SAT 95–100; BMI 31.2
[2023-07-03 18:32] LABS: Add Manual Diff / Slide Review NO; Basophils Absolute Auto 100 /uL (0-100); Basophils Percent Auto 0.7 % (0-2); Eosinophils Absolute Auto 100 /uL (0-450); Eosinophils Percent Auto 1.6 % (2-4); Hematocrit 36.8 % (36-46); Lymphocytes Absolute Auto 1800 /uL (1100-4500); Lymphocytes Percent Auto 20.7 % (25-40); Mean Corpuscular HGB Conc 32.6 % (30-36); Mean Corpuscular Hemoglobin 27.7 PG (26-34); Mean Corpuscular Volume 84.9 fL (80-100); Monocytes Absolute Auto 500 /uL (0-900); Monocytes Percent Auto 5.5 % (3-14); Neutrophils Absolute Auto 6200 /uL (1500-7000); Neutrophils Percent Auto 71.5 % (50-75); Platelet Count 236 X10^3/uL (150-400); Red Blood Cell Count 4.33 X10^6/uL (4.0-5.2); Red Cell Distribution Width 21.8 % (11.6-14.8); White Blood Cell Count 8.7 X10^3/uL (4.5-11.0)
[2023-07-03 18:45] LABS: Anisocytosis 2+
[2023-07-03 18:46] LABS: Alanine Aminotransferase 15 IU/L (<35); Albumin 4.2 g/dL (3.5-5.0); Albumin Globulin Ratio 1.4 (1.0-2.8); Alkaline Phosphatase 51 U/L (38-126); Aspartate Aminotransferase 20 IU/L (14-36); BUN Creatinine Ratio 8.8 (6-22); Bilirubin Total 0.3 mg/dL (0.2-1.3); Blood Urea Nitrogen 7 mg/dL (7-17); Calcium 9.2 mg/dL (8.4-10.2); Carbon Dioxide 23 mmol/L (22-32); Chloride 105 mmol/L (98-107); Estimated Glomerular Filt Rate > 60 mL/min (>60); Globulin 3.1 g/dL (1.7-4.1); Glucose 103 mg/dL (70-100); HEMOLYSIS < 15 (0-50); Lipase 229 U/L (23-300); Potassium 3.9 mmol/L (3.4-5.1); Sodium 136 mmol/L (137-145); Total Protein 7.3 g/dL (6.3-8.2)
--- NOTE | 2023-07-03 18:55 | ED_ITS ---
HPI - Abdominal Pain General Chief Complaint: Abdominal Pain Stated Complaint: ABD PAIN Time Seen by Provider: 07/03/23 18:07 Source: patient Mode of arrival: EMS History of Present Illness HPI narrative: 42-year-old female former smoker without significant chronic medical history presents with a chief complaint of left lower quadrant abdominal pain that began at about 230 today. She states that it is quite severe and she is unclear whether it has been gradually worsening or if it came on suddenly. She states that she was in a few weeks ago had somewhat similar though not nearly as severe pain and was told she had fibroids and is apparently likely to have surgery to intervene. She states that her pain is severe and constant but she does have episodes where it seems to ramp up without any obvious provocation or palliation. She is nauseated but denies any vomiting. She is had no fever or chills. She denies dysuria, frequency or urgency. She denies any vaginal bleeding or discharge Related Data Home Medications Medication Instructions Recorded Confirmed dextroamphetamine-amphetamine 5 mg 5 mg PO DAILY 06/29/23 07/04/23 tablet (Adderall) clonazepam 0.5 mg tablet 0.25 mg PO BID PRN anxiety attack 07/04/23 07/04/23 norethindrone acetate 1 mg-ethinyl 1 tab PO DAILY 07/04/23 07/04/23 estradiol 20 mcg tablet ([place]) Previous Rx's Medication Instructions Recorded ondansetron 4 mg disintegrating 4 mg PO Q8H PRN nausea and 01/22/21 tablet vomiting #10 tabs dicyclomine 10 mg capsule 10 mg PO TID PRN abdominal pain 01/25/21 #21 caps hydrocodone 5 mg-acetaminophen 325 1 tab PO Q6H PRN pain #10 tabs 06/18/23 mg tablet Allergies Allergy/AdvReac Type Severity Reaction Status Date / Time No Known Drug Allergies Allergy Verified 06/29/23 15:51 Review of Systems Review of Systems Narrative: GENERAL: Denies chills, fatigue, malaise, fever, sweats. HEENT: Denies sinus pain, ear pain, sore throat, difficulty swallowing, dizziness. RESPIRATORY: Denies dyspnea, cough, wheezing, hemoptysis, sputum. CARDIOVASCULAR: Denies chest pain, palpitations, orthopnea, edema, GASTROINTESTINAL: see HPI : See HPI MUSCULOSKELETAL: denies weakness, joint pain, or bony pain SKIN: Denies rash, skin lesions, or other NEUROLOGIC: Denies weakness, headache, numbness, change in speech, confusion, seizures, incoordination. PSYCHIATRIC: No concerning psychosocial issues. 12 point review of systems is negative except for those stated above Patient History Medical History Alopecia Depression Anxiety Social History household members: children Smoking Status: Never smoker alcohol intake: current Smoking Status: Former smoker tobacco type: vaping alcohol intake frequency: a few times a week Substance Use Type: marijuana Exam Narrative Exam Narrative: GENERAL: [42] year old patient appears stated age. Well-developed patient, in mild distress. HEAD: Atraumatic. Normocephalic. EYES: Pupils equal round and reactive. Extraocular motions intact. No scleral icterus. No injection or drainage. ENT: Nose without bleeding, purulent drainage. Throat without erythema, tonsillar hypertrophy or exudate. Airway patent. NECK: Trachea midline. Non tender CARDIOVASCULAR: Regular rate and rhythm without murmurs, gallops, or rubs. RESPIRATORY: Clear to auscultation. Breath sounds equal bilaterally. No wheezes, rales, or rhonchi. GASTROINTESTINAL: Abdomen soft, tender in left lower quadrant, nondistended. EXTREMITIES: No edema or joint tenderness. BACK: Nontender without deformity or crepitance. No flank tenderness. NEURO: AOx3. SKIN: No rash or erythema of visible areas Initial Vital Signs Initial Vital Signs: Vital Signs Temperature 97.8 F 07/03/23 18:02 Pulse Rate 86 07/03/23 18:02 Respiratory Rate 20 07/03/23 18:02 Blood Pressure 134/91 H 07/03/23 18:02 Pulse Oximetry 97 07/03/23 18:02 Oxygen Delivery Method Room Air 07/03/23 18:02 Course Orders Ordered: ED Orders 07/03/23 18:15 Complete Blood Count AUTO DIFF Stat Comprehensive Metabolic Panel Stat Lipase Stat 07/03/23 19:12 Test Urine Stat Urinalysis and Microscopic Stat Urine Culture Stat 07/03/23 19:25 US pelvic complete Stat 07/03/23 21:24 CT abdomen pelvis w con Stat 07/03/23 23:37 Education, smoking cessation ONGOING Acetaminophen (Acetaminophen 325 Mg Tablet) 650 mg PO Q6H [facility] Last Admin: 07/04/23 01:05 Dose: 650 mg Documented By: EVELIN Celecoxib (Celecoxib 100 Mg Capsule) 200 mg PO BID [facility] Last Admin: 07/04/23 01:05 Dose: 200 mg Documented By: EVELIN Gabapentin (Gabapentin 100 Mg Capsule) 300 mg PO TID [facility] Last Admin: 07/04/23 01:05 Dose: 300 mg Documented By: EVELIN Sodium Chloride (Normal Saline 0.45%) 1,000 mls @ 100 mls/hr IV CONT [facility] Last Admin: 07/04/23 00:38 Dose: 100 mls/hr Documented By: EVELIN Piperacillin Sod/Tazobactam (Sod 3.375 gm/ Sodium Chloride) 100 mls @ 25 mls/hr IV Q8H [facility] Morphine Sulfate (Morphine 2 Mg/Ml Inj) 2 mg IV Q2HR PRN PRN Reason: Pain, Severe (7-10) Naloxone HCl (Naloxone 0.4 Mg/Ml Vial) 0.2 mg IV Q2MIN PRN PRN Reason: Opiate Reversal Ondansetron HCl (Ondansetron 4 Mg/2 Ml Inj) 4 mg IV Q6HR PRN PRN Reason: Nausea And Vomiting Discontinued Medications Hydromorphone HCl (Hydromorphone 0.5 Mg Inj) 0.5 mg IV NOW ONE Stop: 07/03/23 20:30 Last Admin: 07/03/23 20:36 Dose: 0.5 mg Documented By: JUAN FRANCISCO Piperacillin Sod/Tazobactam (Sod 4.5 gm/ Sodium Chloride) 100 mls @ 200 mls/hr IV NOW ONE Stop: 07/03/23 23:31 Last Infusion: 07/04/23 00:29 Dose: Infused Documented By: Admin: 07/03/23 23:50 Dose: 200 mls/hr Documented By: ENRIQUETA Piperacillin Sod/Tazobactam (Sod 3.375 gm/ Sodium Chloride) 100 mls @ 25 mls/hr IV Q8H [facility] Last Admin: 07/04/23 01:30 Dose: Not Given Documented By: EVELIN Ketorolac Tromethamine (Ketorolac 30 Mg/Ml Vial) 15 mg IV NOW ONE Stop: 07/03/23 19:26 Last Admin: 07/03/23 19:51 Dose: 15 mg Documented By: KLS Ondansetron HCl (Ondansetron 4 Mg Odt) 4 mg PO NOW PRN PRN Reason: Nausea And Vomiting Ondansetron HCl (Ondansetron 4 Mg/2 Ml Inj) 4 mg IV NOW PRN PRN Reason: Nausea And Vomiting Vital Signs Vital signs: Vital Signs - 8 hr 07/03/23 18:48 07/03/23 18:54 07/03/23 18:54 Temperature Pulse Rate 57 L 76 Respiratory Rate Blood Pressure 112/61 Pulse Oximetry 99 95 Oxygen Delivery Method 07/03/23 19:00 07/03/23 19:00 07/03/23 19:30 Temperature Pulse Rate 84 73 Respiratory Rate Blood Pressure 135/64 Pulse Oximetry 97 100 Oxygen Delivery Method 07/03/23 20:00 07/03/23 20:00 07/03/23 20:30 Temperature Pulse Rate 61 81 Respiratory Rate Blood Pressure 111/76 Pulse Oximetry 100 96 Oxygen Delivery Method 07/03/23 20:30 07/03/23 21:00 07/03/23 21:30 Temperature Pulse Rate 83 90 Respiratory Rate 18 Blood Pressure 123/65 Pulse Oximetry 97 95 Oxygen Delivery Method Room Air 07/03/23 22:00 07/03/23 22:30 07/03/23 23:00 Temperature Pulse Rate 86 68 75 Respiratory Rate 16 Blood Pressure Pulse Oximetry 99 98 96 Oxygen Delivery Method Room Air 07/03/23 23:30 07/03/23 23:52 07/03/23 23:52 Temperature 98.7 F Pulse Rate 88 76 Respiratory Rate 16 Blood Pressure 144/81 H Pulse Oximetry 100 99 Oxygen Delivery Method Room Air MDM - Abdominal Pain Lab Data 07/03/23 18:15 07/03/23 18:15 Labs: Lab Results 07/03/23 07/03/23 Range/Units 18:15 19:12 WBC 8.7 (4.5-11.0) X10^3/uL RBC 4.33 (4.0-5.2) X10^6/uL Hgb 12.0 (12.0-16.0) g/dL Hct 36.8 (36-46) % MCV 84.9 (80-100) fL MCH 27.7 (26-34) PG MCHC 32.6 (30-36) % RDW 21.8 H (11.6-14.8) % Plt Count 236 (150-400) X10^3/uL Neut % (Auto) 71.5 (50-75) % Lymph % (Auto) 20.7 L (25-40) % [place] % (Auto) 5.5 (3-14) % Eos % (Auto) 1.6 L (2-4) % Baso % (Auto) 0.7 (0-2) % Neut # (Auto) 6200 (0597-9629) /uL Lymph # (Auto) 1800 (7569-2822) /uL [place] # (Auto) 500 (0-900) /uL Eos # (Auto) 100 (0-450) /uL Baso # (Auto) 100 (0-100) /uL RBC Morphology See below Anisocytosis 2+ H Sodium 136 L (137-145) mmol/L Potassium 3.9 (3.4-5.1) mmol/L Chloride 105 (98-107) mmol/L Carbon Dioxide 23 (22-32) mmol/L BUN 7 (7-17) mg/dL Creatinine 0.80 (0.52-1.04) mg/dL Estimated GFR > 60 (>60) mL/min BUN/Creatinine Ratio 8.8 (6-22) Glucose 103 H (70-100) mg/dL Calcium 9.2 (8.4-10.2) mg/dL Total Bilirubin 0.3 (0.2-1.3) mg/dL AST 20 (14-36) IU/L ALT 15 (<35) IU/L Alkaline Phosphatase 51 (38-126) U/L Total Protein 7.3 (6.3-8.2) g/dL Albumin 4.2 (3.5-5.0) g/dL Globulin 3.1 (1.7-4.1) g/dL Albumin/Globulin Ratio 1.4 (1.0-2.8) Lipase 229 (23-300) U/L Urine Color Yellow Urine Appearance Clear Urine pH 6.0 (4.5-8.0) Ur Specific [place] >=1.030 H (1.000-1.035) Urine Protein Negative (Negative) Urine Glucose (UA) Negative (Negative) g/dL Urine Ketones Negative (NEGATIVE) Urine Occult Blood Negative (Negative) Urine Nitrate Negative (Negative) Urine Bilirubin Negative (NEGATIVE) Urine Urobilinogen 1.0 (0.2) E.U./dL Ur Leukocyte Esterase Negative (NEGATIVE) Urine RBC None seen (0-5/HPF) Urine WBC 5-10/hpf H (0-5/HPF) Ur Squamous Epith Cells 5-10 /hpf H (0-5/HPF) Urine Bacteria Few (2-10) H (None) Ur Culture Indicated? Specimen cultured Urine Test Negative (Negative) MDM Narrative Medical decision making narrative: [42] year old patient presents with lower abdominal pain, different than recent visit Multiple etiologies for patient's symptoms considered including, but not limited to: [Ovarian torsion versus fibroid versus kidney stone versus other intra- abdominal pathology such as appendicitis versus bowel obstruction] Prior Charts reviewed in our EMR Primary Historian: patient Labs reviewed and interpreted by myself: No leukocytosis or left shift, no signs of anemia Imaging reviewed: CT with evidence of early appendicitis, appendicoliths redemonstrated Consultations:Dr. Sylvester happy to have on her service Discharge Plan Departure Patient Disposition: Admitted as Observation Clinical Impression: Appendicitis Admit Date/Time: 07/04/23 00:14 Admit Provider: Lelo Mendoza
[2023-07-03 19:20] LABS: Appearance Urine UA CLEAR; Bilirubin Urine UA NEGATIVE (NEGATIVE); Color Urine UA YELLOW; Glucose Urine UA NEGATIVE (Negative); Ketones Urine UA NEGATIVE (NEGATIVE); Leukocyte Esterase Urine UA NEGATIVE (NEGATIVE); Nitrite Urine UA NEGATIVE (Negative); Occult Blood Urine UA NEGATIVE (Negative); Protein Urine UA NEGATIVE (Negative); Specific Gravity Urine UA >=1.030 (1.000-1.035)
[2023-07-03 19:24] LABS: Pregnancy Test Urine Negative (Negative)
--- NOTE | 2023-07-03 19:25 | DI.US.S_ITS ---
PROCEDURE: US PELVIC COMPLETE INDICATIONS: WORSENING PELVIC PAIN TECHNIQUE: Real-time scanning was performed of the pelvic organs, with image documentation. Additional endovaginal scanning was necessary due to incomplete visualization of the adnexal and endometrial structures by transabdominal scanning. COMPARISON: [facility], , US PELVIC COMPLETE, 06/17/2023, 22:59. FINDINGS: Uterus: Uterus is anteverted and slightly enlarged in size at 10.6 x 8.3 x 6.6 cm. The myometrium is heterogeneous due to shadowing fibroid in the left anterior subserosal region measuring 5.5 cm. A 2nd fibroid in the midbody posteriorly measures 2.8 cm and has anterior mass effect on the endometrial stripe.. The endometrium measures approximately 21 mm combined thickness at the fundus but appears normal caliber elsewhere. Questionable increased vascularity versus normal vascularity of the endometrium and myometrium. There is a nabothian cyst in the cervix. Ovaries: The right ovary measures 2.8 x 2.0 x 1.3 cm, with a calculated ovarian volume of 3.9 cc. The left ovary measures 1.9 x 1.3 x 1.0 cm, with a calculated ovarian volume of 1.2 cc. The ovaries have a normal sonographic appearance. Less than 12 follicles can be seen in each ovary. No adnexal masses are seen. Other: No pathologic free abdominal or pelvic fluid. IMPRESSION: 1. Increase in size of left anterior uterine fibroid since the prior exam within a few weeks. This may indicate acute degeneration or intrinsic hemorrhage. This may be symptomatic. 2. Fairly stable appearance of a midline posterior intramural fibroid with mass effect on the endometrial stripe. 3. Normal size and appearance to both ovaries. We strive to produce accurate, complete, and clear reports of imaging services. To assist us in improving patient care, this report was composed using standard report templates and voice recognition software. Therefore, it may contain abnormal punctuation, insertions and/or omissions. Occasional wrong-word or sound-alike substitutions may occur. Though we review the report and make efforts to correct it, we do recommend that the report be read carefully in proper context to recognize any text inaccuracies. Dictated by: Aleena Moran M.D. on 07/03/2023 at 22:59 Approved by: Aleena Moran M.D. on 07/03/2023 at 23:05
[2023-07-03 19:27] LABS: Bacteria Urine Few (2-10); Culture Indicated Urine Specimen Cultured; RBC Urine None Seen (0-5/HPF); Squamous Epithelial Cell Urine 5-10 /HPF (0-5/HPF); WBC Urine 5-10/HPF (0-5/HPF)
[2023-07-03] MEDS: KETOROLAC 30 MG/ML VIAL 15 MG IV (19:51)
[2023-07-03] MEDS: HYDROMORPHONE 0.5 MG INJ IV (20:36)
--- NOTE | 2023-07-03 21:24 | DI.CT.S_ITS ---
PROCEDURE: CT ABDOMEN PELVIS W CON INDICATIONS: severe, worsening pelvic pain TECHNIQUE: After the administration of intravenous contrast, axial sections acquired from the lung bases to the pubic symphysis. Coronal and sagittal reformats were performed. For radiation dose reduction, the following was used: automated exposure control, adjustment of mA and/or kV according to patient size. COMPARISON: [facility], CT, CT ABDOMEN PELVIS W CON, 06/17/2023, 23:36. FINDINGS: Image quality: Excellent. Lung bases: Unremarkable. Heart: No significant findings. ABDOMEN: Liver: No masses Gallbladder: Normal wall thickness. Biliary ducts: Nondilated. Pancreas: Normal. Spleen: Normal size. Adrenal Glands: No nodules. Kidneys and Ureters: Normal enhancement. No hydronephrosis or hydroureter. No calcifications. Stomach and Bowel: The appendix contains at least 4 calcified appendicoliths. The distal portion of the appendix is fluid-filled, medially oriented, and measures up to 9 mm in diameter there is mild wall thickening. No significant periappendiceal fat stranding. Stomach and bowel loops are otherwise normal. Peritoneum: No abnormal intraperitoneal fluid. No free air. Ventral Wall: No hernias. Abdominal Nodes: No retroperitoneal or mesenteric adenopathy by size criteria. Vessels: Aorta and inferior vena cava are normal in size. PELVIS: Pelvic Organs: The anteverted uterus contains 2 dominant fibroids, 1 cystic, arising off the left anterior aspect and the other intramural and posterior to the endometrium. The CT appearance of the endometrial stripe is normal. Ovaries are not well assessed by CT and there are no suspicious adnexal masses. There is trace right adnexal fluid. Bladder: Unremarkable. Pelvic Nodes: No enlarged lymph nodes. Miscellaneous: No hernias are seen. Bones: Unremarkable. IMPRESSION: 1. Interval development of distal intraluminal appendiceal fluid, and enlargement. Appendicoliths were present previously. Findings are suggestive of early acute developing appendicitis. There is trace right adnexal fluid which is nonspecific but may also be a secondary sign. 2. Fibroid uterus has a stable appearance compared to the prior exam. Dictated by: Aleena Moran M.D. on 07/03/2023 at 23:06 Approved by: Aleena Moran M.D. on 07/03/2023 at 23:13
[2023-07-03] MEDS: PIPERACILLIN/TAZO 4.5 GM in SODIUM CHLORIDE 0.9% 100 ML IV (23:50)
[2023-07-04] VITALS (8 sets, daily range): BP systolic 85–117; BP diastolic 47–73; PULSE 63–98; RESP 16–18; TEMP 36.1–36.6; O2SAT 98–100; BMI 31.4
[2023-07-04] MEDS: SODIUM CHLORIDE 0.45% 1,000 ML 100 ML IV (00:38)
[2023-07-04] MEDS: ACETAMINOPHEN 325 MG TABLET 650 MG PO ×4 (01:05→17:19)
[2023-07-04] MEDS: GABAPENTIN 100 MG CAPSULE 300 MG PO ×3 (01:05→20:24)
[2023-07-04] MEDS: CELECOXIB 100 MG CAPSULE 200 MG PO ×3 (01:05→20:24)
[2023-07-04] MEDS: MORPHINE 2 MG/ML INJ IV ×2 (02:28→04:32)
--- NOTE | 2023-07-04 02:41 | PC.ADMIT ---
Patient admitted to room 210 from ED per wheelchair at 0035. Is alert and oriented. Breath sounds CTA with RA sat of 98%. HRR. Denied nausea. BT present and abdomen is soft but tender across lower abdomen with LLQ > RLQ. Initially stated pain 4/10 but just now medicated with Morphine for 7/10 pain. Is able to move herself in bed and up to bathroom with assist to remove SCD's and help with IV pole. Bilateral calf SCD's were applied and is tolerating them without problem. Fall risk score is low. Oriented to call light and bed controls. Reviewed plan of care with her and significant other. Verbalizes no further questions at this time. [email or web address] Admission Note: The patient,Verito Vinson,42 y/o, was given written information regarding hospital policies, unit procedures and contact persons. Patient's smoking status: Never smoker. Vital Signs - 8 hr 07/03/23 18:48 07/03/23 18:54 07/03/23 18:54 Temperature Pulse Rate 57 L 76 Respiratory Rate Blood Pressure 112/61 Pulse Oximetry 99 95 Oxygen Delivery Method Oxygen Flow Rate 07/03/23 19:00 07/03/23 19:00 07/03/23 19:30 Temperature Pulse Rate 84 73 Respiratory Rate Blood Pressure 135/64 Pulse Oximetry 97 100 Oxygen Delivery Method Oxygen Flow Rate 07/03/23 20:00 07/03/23 20:00 07/03/23 20:30 Temperature Pulse Rate 61 81 Respiratory Rate Blood Pressure 111/76 Pulse Oximetry 100 96 Oxygen Delivery Method Oxygen Flow Rate 07/03/23 20:30 07/03/23 21:00 07/03/23 21:30 Temperature Pulse Rate 83 90 Respiratory Rate 18 Blood Pressure 123/65 Pulse Oximetry 97 95 Oxygen Delivery Method Room Air Oxygen Flow Rate 07/03/23 22:00 07/03/23 22:30 07/03/23 23:00 Temperature Pulse Rate 86 68 75 Respiratory Rate 16 Blood Pressure Pulse Oximetry 99 98 96 Oxygen Delivery Method Room Air Oxygen Flow Rate 07/03/23 23:30 07/03/23 23:52 07/03/23 23:52 Temperature 98.7 F Pulse Rate 88 76 Respiratory Rate 16 Blood Pressure 144/81 H Pulse Oximetry 100 99 Oxygen Delivery Method Room Air Oxygen Flow Rate 07/04/23 01:00 07/04/23 01:11 Temperature 97 F L Pulse Rate 63 Respiratory Rate 18 Blood Pressure 114/73 Pulse Oximetry 98 Oxygen Delivery Method Room Air Oxygen Flow Rate 0
[2023-07-04] MEDS: PIPERACILLIN/TAZO 3.375 GM in SODIUM CHLORIDE 0.9% 100 ML IV ×3 (03:53→20:25)
[2023-07-04] MEDS: HYDROMORPHONE 1 MG INJ IV ×2 (05:11→08:23)
[2023-07-04] MEDS: SODIUM CHLORIDE 0.9% 1,000 ML 100 ML IV ×2 (11:14→20:25)
[2023-07-04] MEDS: PANTOPRAZOLE 40 MG VIAL IV ×2 (11:16→20:24)
--- NOTE | 2023-07-04 11:19 | CM.DANOTE ---
DCP: Case received, EMR reviewed and met with patient. Introduced self and role. Completed DCP assessment based upon information currently available. Patient is a 42 year old female who admitted early this morning to the care of the hospitalist team. PCP: Dr. Garcia. Payer: confirmed: [employer]. Patient came to the hospital via private vehicle secondary to having complaints of left lower quadrant abdominal pain. Notes indicate pain was severe, unclear if it was gradually worsening or came on suddenly. Patient is noted to have appendicitis, is scheduled for surgery today. Met with patient briefly in her room. She is alert, was having some discomfort. Confirmed that she resides here in [place] with her children. She is employed at [employer]. P: DCP to continue to follow. Plan is surgery today, she should be able to go home after surgery when deemed medically stable. Lacy Mejia RN/Solar Sales Ambassador Discharge Planning/Care Management CM Discharge Assessment Start: 07/04/23 11:17 Freq: Status: Active Protocol: Document 07/04/23 11:18 (Rec: 07/04/23 11:19 [email or web address]) Discharge Planning Assessment Assigned Household Coordinator Lacy Mejia RN/[employer]olar Sales Ambassador Advance Directives? No History Provided By Patient,Medical Record Prior Living Arrangements House Household Members children Type of transporation used prior to Drives own vehicle admit Independent with ADL's Yes Is patient alert and oriented? Yes Caregiver for Another No Barriers to Discharge No Discharge Plan Home Transportation Arrangement Friend Referrals Initiated None needed Whiteboard Updated in Patient Room with Yes name and ext. # of Household Coordinator Review Status In Process Next Review Type Continued Stay Review
[2023-07-04] MEDS: OXYCODONE IR 10 MG TABLET PO ×2 (11:23→20:24)
--- NOTE | 2023-07-04 12:30 | PM.HP.1 ---
History of Present Illness History of Present Illness Date Patient Seen: 07/04/23 Time Patient Seen: 12:31 Chief complaint: ABD PAIN Narrative: acute on chronic abdominal/pelvic pain with new component. Repeat CT scan is concerning from a change in volume of appendix. NO elevated WBC, no fever. RLQ tenderness that is more than usual. [facility] Medical History Alopecia Depression Anxiety Social History household members: children Smoking Status: Never smoker alcohol intake: current Meds Home Medications and Allergies Home Medications Medication Instructions Recorded Confirmed Type ondansetron 4 mg disintegrating 4 mg PO Q8H PRN nausea and 01/22/21 07/04/23 Rx tablet vomiting #10 tabs dicyclomine 10 mg capsule 10 mg PO TID PRN abdominal pain 01/25/21 07/04/23 Rx #21 caps hydrocodone 5 mg-acetaminophen 325 1 tab PO Q6H PRN pain #10 tabs 06/18/23 07/04/23 Rx mg tablet dextroamphetamine-amphetamine 5 mg 5 mg PO DAILY 06/29/23 07/04/23 History tablet (Adderall) clonazepam 0.5 mg tablet 0.25 mg PO BID PRN anxiety attack 07/04/23 07/04/23 History norethindrone acetate 1 mg-ethinyl 1 tab PO DAILY 07/04/23 07/04/23 History estradiol 20 mcg tablet (Patrice) Allergies Allergy/AdvReac Type Severity Reaction Status Date / Time No Known Drug Allergies Allergy Verified 06/29/23 15:51 Review of Systems Review of Systems Narrative: chronic pelvic pain and is being scheduled for lap partial hyst ROS: Yes All systems reviewed with the patient and are negative except as otherwise documented Exam Vital Signs (past 8 hours): - 07/04/23 05:00 07/04/23 09:00 Temperature 97.5 F L 97.4 F L Pulse Rate 98 H 75 Respiratory Rate 18 16 Blood Pressure 106/63 110/47 L Pulse Oximetry 98 99 Oxygen Flow Rate 0 0 Oxygen Delivery Method Room Air Oxygen Flow Rate 0 Const General: cooperative and anxious Nutritional Appearance: well nourished HENND Head: normocephalic and atraumatic Ears: hearing grossly normal bilaterally Eyes Sclera: sclerae normal Neck Neck: trachea midline Resp Effort & Inspection: normal respiratory effort and able to speak in complete sentences Cardio Rate: tachycardic Rhythm: regular rhythm GI Palpation: soft and tender (lower abdomen) Skin General: elasticity normal Hair: total alopecia Neuro General: patient alert, patient awake and patient oriented x3 Cognition: normal cognition Psych Mental Status: mental status grossly normal Judgment: judgment good Objective Labs 07/03/23 18:15 07/03/23 18:15 Labs: Laboratory Results - last 24 hr 07/03/23 07/03/23 18:15 19:12 WBC 8.7 RBC 4.33 Hgb 12.0 Hct 36.8 MCV 84.9 MCH 27.7 MCHC 32.6 RDW 21.8 H Plt Count 236 Neut % (Auto) 71.5 Lymph % (Auto) 20.7 L [place] % (Auto) 5.5 Eos % (Auto) 1.6 L Baso % (Auto) 0.7 Neut # (Auto) 6200 Lymph # (Auto) 1800 [place] # (Auto) 500 Eos # (Auto) 100 Baso # (Auto) 100 RBC Morphology See below Anisocytosis 2+ H Sodium 136 L Potassium 3.9 Chloride 105 Carbon Dioxide 23 BUN 7 Creatinine 0.80 Estimated GFR > 60 BUN/Creatinine Ratio 8.8 Glucose 103 H Calcium 9.2 Total Bilirubin 0.3 AST 20 ALT 15 Alkaline Phosphatase 51 Total Protein 7.3 Albumin 4.2 Globulin 3.1 Albumin/Globulin Ratio 1.4 Lipase 229 Urine Color Yellow Urine Appearance Clear Urine pH 6.0 Ur Specific [place] >=1.030 H Urine Protein Negative Urine Glucose (UA) Negative Urine Ketones Negative Urine Occult Blood Negative Urine Nitrate Negative Urine Bilirubin Negative Urine Urobilinogen 1.0 Ur Leukocyte Esterase Negative Urine RBC None seen Urine WBC 5-10/hpf H Ur Squamous Epith Cells 5-10 /hpf H Urine Bacteria Few (2-10) H Ur Culture Indicated? Specimen cultured Urine Test Negative Assessment & Plan Assessment & Plan narrative: Possible early acute appendicitis, +fecal lith in appendix Has partial lap hyst to be done soon with Dr. Mcleod Plan: Antibiotics for treatment of appendicitis and elective lap appy at the time of lap hyst is the best option NPO at midnight with re evaluation in the am (may need to repeat pelvic CT) to determine of appendicitis is responding due to lack of clear identifiers other than CT scan.
[2023-07-04] MEDS: ONDANSETRON 4 MG/2 ML INJ IV (15:51)
[2023-07-04] MEDS: TRAZODONE 50 MG TABLET PO (20:24)
[2023-07-05] MEDS: OXYCODONE IR 10 MG TABLET PO (02:33)
[2023-07-05] MEDS: PIPERACILLIN/TAZO 3.375 GM in SODIUM CHLORIDE 0.9% 100 ML IV (04:28)
[2023-07-05 06:44] LABS: Basophils Absolute Auto 0 /uL (0-100); Basophils Percent Auto 0.3 % (0-2); Eosinophils Absolute Auto 200 /uL (0-450); Eosinophils Percent Auto 2.6 % (2-4); Hemoglobin 9.4 g/dL (12.0-16.0); Lymphocytes Absolute Auto 1400 /uL (1100-4500); Lymphocytes Percent Auto 20.4 % (25-40); Mean Corpuscular HGB Conc 32.6 % (30-36); Monocytes Absolute Auto 300 /uL (0-900); Neutrophils Absolute Auto 4800 /uL (1500-7000); Neutrophils Percent Auto 71.7 % (50-75); Platelet Count 161 X10^3/uL (150-400); Red Blood Cell Count 3.37 X10^6/uL (4.0-5.2); Red Cell Distribution Width 21.9 % (11.6-14.8); White Blood Cell Count 6.7 X10^3/uL (4.5-11.0)
[2023-07-05 06:53] LABS: Add Manual Diff / Slide Review SLIDE REVIEW
[2023-07-05 07:18] LABS: Anisocytosis 1+
[2023-07-05 07:19] LABS: Ovalocytes 1+
[2023-07-05] MEDS: AMOXICILLIN/CLAV 875/125 MG 1 TAB PO (08:37)
[2023-07-05] MEDS: PANTOPRAZOLE 40 MG VIAL IV (08:37)
[2023-07-05] MEDS: CELECOXIB 100 MG CAPSULE 200 MG PO (08:37)
[2023-07-05] MEDS: ACETAMINOPHEN 325 MG TABLET 650 MG PO (08:38)
[2023-07-05] MEDS: GABAPENTIN 100 MG CAPSULE 300 MG PO (08:38)
--- NOTE | 2023-07-05 10:41 | P.PN_ITS ---
Subjective Subjective Date Patient Seen: 07/05/23 Time Patient Seen: 07:40 Interval history: Patient reports pain is much better. Exam Vital Signs (past 8 hours): - 07/05/23 08:00 Oxygen Delivery Method Room Air Oxygen Flow Rate 0 Oxygen Delivery Method Room Air Oxygen Flow Rate 0 Narrative Exam Narrative: abdomen is benign, moves easily in bed. Const General: comfortable Objective Labs 07/05/23 06:17 07/03/23 18:15 Labs: Laboratory Results - last 24 hr 07/05/23 06:17 WBC 6.7 RBC 3.37 L Hgb 9.4 L Hct 29.0 L MCV 86.0 MCH 28.0 MCHC 32.6 RDW 21.9 H Plt Count 161 Neut % (Auto) 71.7 Lymph % (Auto) 20.4 L [place] % (Auto) 5.0 Eos % (Auto) 2.6 Baso % (Auto) 0.3 Neut # (Auto) 4800 Lymph # (Auto) 1400 [place] # (Auto) 300 Eos # (Auto) 200 Baso # (Auto) 0 RBC Morphology See below Anisocytosis 1+ H Ovalocytes 1+ H PFSH Medical History Alopecia Depression Anxiety Social History household members: children Smoking Status: Never smoker alcohol intake: current Assessment & Plan Assessment & Plan narrative: Possible early appendicitis responding to antibiotics Plan: discharge home the Augmentin and do interval appendectomy at the same time as Dr. Mcleod does Partial laparoscopic hysterectomy Time Spent With Patient Time with patient: less than 30 minutes
[2023-07-05 10:42] VITALS: BP 99/55; PULSE 84; RESP 16; TEMP 37.3; O2SAT 99
--- NOTE | 2023-07-05 10:44 | PM.DS.1 ---
History of Present Illness History of Present Illness Date Patient Seen: 07/05/23 Time Patient Seen: 10:44 Chief complaint: ABD PAIN Narrative: acute on chronic abdominal/pelvic pain with new component. Repeat CT scan is concerning from a change in volume of appendix. NO elevated WBC, no fever. RLQ tenderness that is more than usual. Discharge Providers Provider Date of admission: 07/04/23 00:14 Discharge Date: 07/05/23 Primary care physician: Allyn Garcia materials management supervisor provider: Carol Sylvester MD Summary Hospital Course Discharge Diagnosis: possible early appendicitis with fecal liths Plan: Home on Augmentin to complete treatment of appendicitis and remove appendix at same time as Partial hysterectomy. Hospital Course: Hydration and IV antibiotics with serial exams Status at Discharge Cognitive/behavioral status at discharge: at baseline, oriented Functional status at discharge: independent ambulation Overall status at discharge: patient is progressing back to baseline Time Spent with Patient Time spent: Less than 30 minutes Exam Vital Signs (past 8 hours): - 07/05/23 08:00 07/05/23 10:42 Temperature 99.1 F Pulse Rate 84 Respiratory Rate 16 Blood Pressure 99/55 L Pulse Oximetry 99 Oxygen Delivery Method Room Air Oxygen Flow Rate 0 Oxygen Delivery Method Room Air Oxygen Flow Rate 0 Narrative Exam Narrative: abdomen benign Objective Labs 07/05/23 06:17 07/03/23 18:15 Labs: Laboratory Results - last 24 hr 07/05/23 06:17 WBC 6.7 RBC 3.37 L Hgb 9.4 L Hct 29.0 L MCV 86.0 MCH 28.0 MCHC 32.6 RDW 21.9 H Plt Count 161 Neut % (Auto) 71.7 Lymph % (Auto) 20.4 L [place] % (Auto) 5.0 Eos % (Auto) 2.6 Baso % (Auto) 0.3 Neut # (Auto) 4800 Lymph # (Auto) 1400 [place] # (Auto) 300 Eos # (Auto) 200 Baso # (Auto) 0 RBC Morphology See below Anisocytosis 1+ H Ovalocytes 1+ H PFSH Medical History Alopecia Depression Anxiety Social History household members: children Smoking Status: Never smoker alcohol intake: current Discharge Assessment & Plan Assessment and Plan Assessment: Possible early appendicitis. + fecal liths Plan: is appendectomy at the same time as partial hysterectomy. Home on 5 more days of Augmentin BID Discharge Plan Discharge Plan Patient Disposition: Home Discharge orders & Medications Prescriptions: New gabapentin 100 mg Capsule 300 mg PO TID Qty: 30 0RF amoxicillin-pot clavulanate 875-125 mg Tablet 1 tab PO BID Qty: 10 0RF oxycodone 10 mg Tablet 10 mg PO Q6H PRN (Reason: pain) Qty: 5 0RF pantoprazole [Protonix] 40 mg tablet,delayed release (DR/EC) 40 mg PO DAILY Qty: 14 0RF Continued dextroamphetamine-amphetamine [Adderall] 5 mg tablet 5 mg PO DAILY ondansetron 4 mg tablet,disintegrating 4 mg PO Q8H PRN (Reason: nausea and vomiting) Qty: 10 0RF dicyclomine 10 mg capsule 10 mg PO TID PRN (Reason: abdominal pain) Qty: 21 0RF hydrocodone-acetaminophen 5-325 mg tablet 1 tab PO Q6H PRN (Reason: pain) Qty: 10 0RF norethindrone ac-eth estradiol [Patrice 09/30 ()] 1-20 mg-mcg tablet 1 tab PO DAILY clonazepam 0.5 mg tablet 0.25 mg PO BID PRN (Reason: anxiety attack) Follow up/Referrals: Carol Sylvester MD [Physician] - (Coordinate with Dr. Mcleod's surgery for lap partial hyst, add me taking out the appendix) Allyn Garcia RN [Primary Care Provider] - Diet/Activity/Treatments Diet: Diet as Tolerated Activity: no restriction Visit Report/Discharge Packet Instructions: DI for Appendicitis -- Adult, Antibiotics May Be Better Than Appendectomies in Some Cases, Pantoprazole, Oxycodone, Amoxicillin and Clavulanic Acid, Gabapentin Stand Alone Forms: Patient Portal/API, Stroke Signs & Symptoms Discharge Data Primary Care Provider: Allyn Garcia
--- NOTE | 2023-07-05 11:19 | PC.NURSE ---
Pt is dressed and ready for discharge home with Spouse. IV has been removed. Went over d/c instructions with Pt and Spouse-discussed d/c meds, time of last dose, reviewed stroke education, discussed s/s of infection and when to call MD. Pt to schedule her appointment to have a lap appy/hysterectomy at the same time. Discussed taking her full course of abx as ordered and to drink plenty of fluids to prevent constipation or dehydration. Pt denied further questions and was taken out via w/c by [employer] to POV with Spouse and all belongings.
--- NOTE | 2023-07-05 11:46 | CM.DPC ---
DCP Cont. Reviewed EMR and team rounds for status updates. Pt has been cleared for home d/c, will be transported home by spouse. No further DCP needs identified at this time.
== END 2023-07-05 11:22 | disposition home or self-care (01) | DRG 395 ==
LOC: ED 23:39 → AC 07-04 06:39
PROVIDERS: Emergency Medicine; Admitting Provider Surgery; Emergency Provider Emergency Medicine; PCP Nurse Practitioner Family; Referring Provider Emergency Medicine; Visit Provider Surgery
DX: K35.80 Unspecified acute appendicitis (principal); K38.1 Appendicular concretions; F41.9 Anxiety disorder, unspecified
CPT/HCPCS: 36415; 74177; 76830; 76856; 80053; 81001; 81025; 83690; 85025; 87086; 93975; 96365; 96375; 99221; 99238; 99284; G0378; C9113; J1170; J1885; J2270; J2405; J2543; J7050; Q9967

== ENCOUNTER 2023-07-31 07:19 | Day surgery (SDC) | payer OTHER, SELFPAY ==
[2023-07-04 00:47] VITALS: BMI 31.4
[2023-07-24 10:47] VITALS: BMI 31.8
[2023-07-31] VITALS (16 sets, daily range): BP systolic 100–125; BP diastolic 53–77; PULSE 83–100; RESP 8–18; TEMP 36.1–36.7; O2SAT 96–100; BMI 31.2
--- NOTE | 2023-07-31 | PATH_ITS ---
[facility] Accession Number: [id number] No. of containers..03 Tissue . 01 Material submitted: . PART A: appendix - APPENDIX PART B: peritoneum - PERITONEAL BX, ANTERIOR CUL DE SAC PART C: uterus - UTERUS, BILATERAL FALLOPIAN TUBES . 01 Diagnosis: A. Appendix, Appendectomy: Acute appendicitis and periappendicitis. . B. Peritoneum, Anterior [place], Biopsy: Fibroconnective tissue with endometriosis . C. Uterus And Bilateral Fallopian Tubes (218 grams), Hysterectomy And Bilateral Salpingectomy: Cervix with mild chronic inflammation; no dysplasia or malignancy. Inactive endometrium. Leiomyomata.See comment. Adenomyosis. Bilateral fimbriated fallopian tube with complete cross-section of lumen identified without any other significant pathologic alterations. [facility] 08/15/2023 1447 Local . 01 Comment: Within one of the two leiomyoma identified on gross examination, small thick-walled vessels are noted which show a perivascular proliferation of small, widely spaced, bland appearing benign spindled cells which appear similar to the lesional cells of leiomyoma. The morphology raises the possibility of angioleimyoma, which is a rare variant of leiomyoma and carries the same prognosis as that of benign conventional/usual leiomyoma. . 01 Electronically signed: . Amber Lynn MD, Pathologist NPI- [id number] . 01 Gross description: . A. Received in formalin, labeled with the patient's name, , and designated appendix, and consists of a tariq, vermiform appendix measuring 3.9 cm in length by 0.8 cm in diameter with mesoappendix extending out to 2.1 cm. The serosa is tariq and roughened, and the margin is inked blue. Sectioning reveals a patent lumen filled with tariq semisolid material and averaging 0.2 cm in diameter. The antunez are tariq, intact, and average 0.3 cm thick with no perforation or lesions identified. District Adviser sections to include the margin, one-half of the bisected distal tip, and cross sections are submitted in cassette A1. B. Received in formalin, labeled with the patient's name, , and designated peritoneal biopsy anterior cul-de-sac, and consists of a tariq, soft tissue fragment measuring 0.4 x 0.3 x 0.3 cm. One aspect is inked blue, and the specimen is submitted intact in cassette B1. C. Received in formalin, labeled with the patient's name, , and designated uterus and bilateral fallopian tubes, and consists of an intact uterus (218 g, 10.1 cm superior to inferior, 7.2 cm medial to lateral, and 5.6 cm anterior to posterior) with attached cervix (3.7 x 3.6 cm), and two detached, unoriented, fimbriated fallopian tubes (6.1 x 0.3 cm and 4.0 x 0.5 cm) with no additional adnexa. The ectocervix is pink-tariq and finely granular with a patulous os measuring 1.1 cm in greatest dimension. The anterior paracervical margin is inked blue while the posterior paracervical margin is inked black. The serosa is tariq and smooth with no evidence of hemorrhage or adhesion identified. The endocervical canal has tariq, herringbone mucosa and measures 2.6 cm in length. The endometrial cavity measures 3.4 cm from cornu to cornu and 5.2 cm in length with a white, whorled nodule located submucosally distorting the endometrial cavity. This nodule measures 3.6 cm in greatest dimension. The endometrium is red and velvety and averages 0.1 cm thick. The myometrium is tariq and trabecular, measuring up to 3.2 cm in maximum thickness. Aside from the aforementioned submucosal nodule, a well-circumscribed cystic mass is identified measuring 4.5 x 4.2 x 2.7 cm. The cystic mass is grossly separate from the endometrium and extends up to but not beyond the serosa. No additional lesions are identified. . The longer fallopian tube has tariq, smooth serosa with multiple cystic structures measuring up to 0.2 cm in greatest dimension filled with tariq serous fluid. Sectioning reveals an unremarkable stellate lumen. The shorter fallopian tube has tariq, roughened serosa with multiple cystic structures measuring up to 0.2 cm in greatest dimension filled with tariq serous fluid. Sectioning reveals an unremarkable stellate lumen. . District Adviser sections are submitted as follows: C1: Anterior cervix. C2: Posterior cervix. C3: Anterior full-thickness section. C4: Posterior full-thickness section. C5-C6: Cystic nodule. C7: Serosa. C8: Submucosal nodule. C9: Longer fallopian tube to include one-half of bisected fimbriae and cross sections. C10: [place] fallopian tube to include one-half of bisected fimbriae and cross sections. ([id number]) /FRR 08/02/2023 0332 Local . 01 Pathologist provided ICD-10: K35.80, N80.30, D25.9, N80.00 . 01 CPT . 557955, 546015, 136874 Specimen Comment: A courtesy copy of this report has been sent to [phone] Performed at: 01 [facility] [address] [place] [address], [place], [place] [id number] MD Connor Silva MD Phone: [phone]
[2023-07-31] MEDS: SCOPOLAMINE 1 PATCH TOP (07:48)
[2023-07-31] MEDS: LACTATED RINGERS 1,000 ML 100 ML IV ×4 (07:52→17:54)
--- NOTE | 2023-07-31 09:40 | P.OP.PRE_ITS ---
Pre-operative Note COVID-19 COVID-19 status: Negative Interval Note History & Physical reviewed/Exam performed by Physician: Yes Changes to H&P: Yes H&P completed within 30 days and has changed as indicated here:: appendicitis re solved with antibiotics
[2023-07-31] MEDS: CEFAZOLIN 2 GM/100 ML PREMIX 100 ML IV (09:45)
[2023-07-31] MEDS: ACETAMINOPHEN IV 1,000 MG/100 ML VIAL 400 MG IV (09:55)
--- NOTE | 2023-07-31 10:14 | SUR.OPER ---
Lithotomy on padded OR bed. Rolfe Pad Positioner under torso. Head on pillow, arms padded and tucked at sides. Legs secured in padded yellow fins stirrups.
--- NOTE | 2023-07-31 10:21 | PM.OP.1 ---
Operative Date/Time/Diagnoses Date of procedure: 07/31/23 Time of procedure: 10:21 Pre-op diagnosis: Interval appendectomy Post-op diagnosis: same Procedure & Clinicians Procedure: Appendectomy in association with gynecologic surgery today. Same procedure as scheduled: Yes Indications: History of acute appendicitis with fecalith Surgeon: Carol Sylvester Click Yes if Unassisted: Yes Anesthesia Type: General and Local Operative Notes Findings: Noninflamed appendix. Residual associated inflammatory stranding. Closure Type: not applicable Specimen(s): other (Appendix) Estimated Blood Loss (mL): 3 Blood products transfused: none Procedure in detail: Preop diagnosis: Interval appendectomy Postop diagnosis: Same Operative procedure: Laparoscopic appendectomy to be followed by a more complex gynecologic case. Surgeon: Ronit Sylvester MD Anesthetic: General with ET tube intubation along with local Findings: Residual associated inflammatory stranding around the appendix but a normal-appearing appendix Procedure: Patient placed in a lithotomy position. Prepped and draped sterile fashion to expose her abdomen. Infraumbilical port site placed using open technique a 12 mm port. Insufflation began all other ports were placed under direct vision including a 5 mm port in the suprapubic area and a 5 mm port in the left lateral abdomen. Appendix was identified and lifted cephalad for exposure. Appendiceal mesentery was taken down with electrocautery and excellent hemostasis. I then used a linear BRAYAN stapling device for amputation of the appendix at a healthy base. Staple line was healthy and nonbleeding as a result. Appendix was then placed into an Endo-Catch bag and pulled through the infraumbilical port site intact. Dr. Mcleod resumed under procedure from there. All closing will be found in his operative note. Complications: none Post-operative Condition: stable Disposition: other (This procedure was a combined procedure, OBGYN resuming)
[2023-07-31] MEDS: BUPIVACAINE 0.5% (PF) 30 ML, EPINEPHrine 0.15 MG INJ (10:41)
[2023-07-31] MEDS: ROPIVACAINE 0.2% PF 2 MG/ML 10ML AMP 20 ML INJ (10:43)
--- NOTE | 2023-07-31 13:57 | PM.GYNOP.1 ---
Operative Date/Time/Diagnoses Date of procedure: 07/31/23 Time of procedure: 10:20 Pre-op diagnosis: Menometrorrhagia Submucous myoma Enterocele Rectocele Post-op diagnosis: same Procedure & Clinicians Procedure: Procedures Operation Date: 07/31/23 09:00 Actual Procedure Side Surgeon p Total Laparoscopic Hysterectomy, bilateral salpingectomy/ Laparoscopic enterocele repair Not Applicable Yamil Mcleod MD s Posterior Colporrhaphy Not Applicable Yamil Mcleod MD s Laparoscopic Appendectomy Carol Sylvester MD Indications: Verito is a 42-year-old , LMP 05/07/2023, who presents in follow-up from an [facility] ED visit on 06/17/2023 for lower abdominal pain at which time uterine fibroids were discovered she experienced menarche at age 11 and has had regular predictable periods throughout her reproductive life. The periods however are heavy, lasting 7-10 days in duration with only a 23 day interval between periods. She is been experiencing gradually increasing pelvic pain over the last 2 years which is associated with development of dyspareunia. She denies or GI symptoms. She also denies intermenstrual bleeding or postcoital bleeding. Patient has had 4 spontaneous vaginal births with the largest being about 8 lb. Patient also notes some need for rectal stenting when she is constipated and has mild stress urinary incontinence but no urge incontinence. Pelvic ultrasound performed 06/17/2023 showed: FINDINGS: Uterus: Uterus is anteverted and normal in size at 6.2 x 7.9 x 11.1 cm. The myometrium is moderately heterogeneous containing scattered uterine fibroids. The endometrium measures 6.5 mm combined thickness. Ovaries: The right ovary measures 2.4 x 3.7 x 2.3 cm, with a calculated ovarian volume of 10.7 cc which includes a 2.4 x 1.7 x 2.3 cm simple cyst. The left ovary measures 1.8 x 1.3 x 1.0 cm, with a calculated ovarian volume of 1.2 cc. The ovaries have a normal sonographic appearance. Less than 12 follicles can be seen in each ovary. No adnexal masses are seen. Other: No pathologic free abdominal or pelvic fluid. IMPRESSION: No evidence for ovarian torsion, incidental note is made of several scattered uterine fibroids. For example, on the right posteriorly an intramural fibroid measures up to 3.7 cm and on the left anteriorly an intramural fibroid measures up to 4.4 cm. Simple small right ovarian cyst incidentally noted. Aside from a single abnormal Pap in 2001 which did not require any treatment, the patient has had normal Paps throughout her reproductive life with her most recent being in 2020. She has not had endometrial sampling performed because we have not been able to get her to stop bleeding therefore endometrial sampling not been possible. Presents today for her scheduled gynecologic surgery. Surgeon: Yamil Mcleod Disability Attorney: Haylee Rouse Anesthesia Type: General Operative Notes Findings: The uterus is myomatous and 8 weeks in size. There is an endometrial implant in the anterior cul-de-sac which was removed. Fallopian tubes appear normal as do the ovaries. In the posterior cul-de-sac there was some scarring but no evidence of active endometriosis seen. A second-degree enterocele is noted along with a 1st-2nd degree rectocele. The remainder of the abdominal cavity is unremarkable and Dr. Sylvester's operative note details the anatomy of the appendix and cecum. Closure Type: primary Specimen(s): left tube, right tube and uterus Applied: catheter Estimated blood loss (mL): 100 Blood products transfused: none Procedure in detail: Following completion of the appendectomy performed by Dr. Ronit Sylvester, a 2nd pre-surgical safety time-out was then taken in accordance with [facility] Main OR protocols. A 12 mm umbilical port was present along with a 5 mm suprapubic port and a 5 mm left mid quadrant port. Two additional 5 mm ports were placed in the right mid quadrant as well as deep in the right lower quadrant to facilitate the gynecologic portion of the case. A bivalve speculum was then placed in the vagina and the cervix visualized. The anterior lip of the cervix was then grasped with a single-tooth tenaculum. The uterus was sounded to 8 cm, the endocervical canal dilated slightly, and a [employer] uterine manipulator with a large colpotomy cup was placed. Attention turned to the left adnexa. The distal tube was then grasped and the fimbria varicose divided after coagulation with the PowerSeal device. The dissection was then carried out toward the cornua and the fallopian tube amputated. The tube was removed through a 5 mm port and dissection was then carried down using the PowerSeal device so as to divide the utero-ovarian ligament and the round ligament with blunt and sharp dissection of the broad down to the level of the uterine artery. The uterine artery was then skeletonized after development of a bladder flap, coagulated, and divided. Once hemostasis was assured on the left side attention was turned to the right and the tube, utero-ovarian ligament, round ligament, and broad ligament were dissected in a fashion exactly the same as it had been on the left. The right uterine artery was then visualized after skeletonization and coagulated and divided. The uterus was seen to yari after coagulation of both your arteries and the cup was identified through the vaginal muscularis at its insertion with the body of the cervix. Circumferential excision of the vaginal cup was accomplished without difficulty using monopolar current and the uterus mobilized. The uterus was then removed through the vagina. The vaginal cuff was then closed in 2 layers with 2-0 Stratafix suture incorporating and shortening the uterosacral ligaments on both sides. Posterior cul-de-sac was then closed using a Halban technique with 3 0 Ethibond sutures placed vertically. The pelvis was inspected for any abnormality or bleeding, and the ureters were each seen to be peristalsing freely. With complete hemostasis assured, the pneumoperitoneum was vented and the ports removed. All of the 5 mm ports were then closed with 4-0 Monocryl on the skin using inverted interrupted sutures. The umbilical incision was then closed with 0 Vicryl interrupted on the fascia followed by 4-0 Monocryl interrupted on the skin. Skin glue was placed and after the glue was dried, an appropriate dressings were applied. Attention was then turned to performance of the posterior repair. The perineum and posterior wall vaginal mucosa in the midline were infiltrated with 0.25% Marcaine with epinephrine. A marleni-shaped incision over the perineum and distal vagina was performed with a 10. Scalpel and the excised skin was removed with Metzenbaum scissors. Blunt and sharp dissection of the posterior vaginal wall was accomplished up to the apex where 0 Vicryl [id number] stitches were placed in 2 layers so as to reduce the rectocele. Plication of these tissues resulted in excellent reinforcement of the rectovaginal septum and redundant vaginal mucosa was excised. Vaginal mucosa was then closed with 0 Vicryl in a running interlocking stitch all the way down to the perineal body. A vaginal pack was then placed in the vagina. At that point the case was then terminated, the patient awakened, and then transferred to PACU after having tolerated the procedure well. Complications: none Post-operative Condition: stable Disposition: PACU Plan for aftercare: Routine postoperative care
[2023-07-31] MEDS: hydrOXYzine 50 MG/ML INJ 25 MG IM (13:58)
[2023-07-31] MEDS: HYDROMORPHONE 1 MG INJ IV ×2 (14:03→14:10)
[2023-07-31] MEDS: fentaNYL 100 MCG/2 ML INJ 50 MCG IV ×2 (14:23→14:31)
[2023-07-31] MEDS: OXYCODONE IR 5 MG TABLET PO (14:32)
--- NOTE | 2023-07-31 14:35 | SUR.PHASEI ---
Pt with pain in bladder and it feels like my bladder is going to explode. Teaching done regarding the vaginal packing. Dr Mcleod to bedside, updated patient on the same. MD to order Dilaudid for the floor if needed. Walton draining clear yellow urine. Av Best CRNA to bedside. See new order for Fentanyl. Pt resting performing calming breaths at this time.
[2023-07-31] MEDS: LORazepam 2 MG/ML INJ 0.25 MG IV ×2 (14:44→14:53)
--- NOTE | 2023-07-31 15:29 | SUR.PHASEI ---
pt transferred with 1 belonging bag to room 218 by Theresa MALIK. SBAR report to Fany Malik.
--- NOTE | 2023-07-31 17:28 | PC.NURSE ---
Addendum entered by Fany Trammell R.N. 07/31/23 19:24: Patient having some siginificant pain to lower abdomen from packing. Given toradol and this was not very effective for pain. Patient also given dilaudid and this has been more helpful for patient. Dr. Mcleod called and message left for him. He is not operations chief but states that it is ok to call him with concerns. Original Note: Patient to room 218 around 1500. She had a total hysterectomy, appe, and posterior repair today. She has a souza catheter putting out yellow urine and does have vaginal packing, which states can make the patient have a heavy/full feeling. She was medicated with fentanyl, dilaudid, ativan, and vistaril IM in OR and PACU. Patient is alert and oriented x4, she is on LR at 100cc/hr. Significant other is in room and patient is resting comfortably.
[2023-07-31] MEDS: TRAMADOL 50 MG TABLET PO (18:04)
[2023-07-31] MEDS: HYDROMORPHONE 2 MG INJ IV ×2 (18:39→21:47)
[2023-07-31] MEDS: KETOROLAC 30 MG/ML VIAL IV (19:34)
[2023-07-31] MEDS: DOCUSATE 100 MG CAPSULE 200 MG PO (21:32)
[2023-07-31] MEDS: clonazePAM 0.5 MG TABLET 0.25 MG PO (21:39)
[2023-07-31] MEDS: diphenhydrAMINE 25 MG TABLET 50 MG PO (23:12)
[2023-08-01 00:12] VITALS: BP 96/56; PULSE 84; RESP 16; TEMP 36.3; O2SAT 96
[2023-08-01] MEDS: KETOROLAC 30 MG/ML VIAL IV ×2 (01:27→07:07)
[2023-08-01] MEDS: OXYCODONE IR 5 MG TABLET PO ×2 (01:34→08:13)
[2023-08-01] MEDS: LACTATED RINGERS 1,000 ML 100 ML IV (03:54)
[2023-08-01] MEDS: HYDROMORPHONE 2 MG INJ IV (04:55)
[2023-08-01 05:19] LABS: Add Manual Diff / Slide Review NO; Basophils Absolute Auto 0 /uL (0-100); Basophils Percent Auto 0.2 % (0-2); Eosinophils Absolute Auto 0 /uL (0-450); Hematocrit 32.8 % (36-46); Hemoglobin 10.8 g/dL (12.0-16.0); Lymphocytes Absolute Auto 1400 /uL (1100-4500); Lymphocytes Percent Auto 19.6 % (25-40); Mean Corpuscular Hemoglobin 29.5 PG (26-34); Mean Corpuscular Volume 89.2 fL (80-100); Monocytes Absolute Auto 600 /uL (0-900); Monocytes Percent Auto 8.6 % (3-14); Neutrophils Absolute Auto 5100 /uL (1500-7000); Neutrophils Percent Auto 71.6 % (50-75); Platelet Count 173 X10^3/uL (150-400); Red Blood Cell Count 3.68 X10^6/uL (4.0-5.2); Red Cell Distribution Width 21.2 % (11.6-14.8); White Blood Cell Count 7.1 X10^3/uL (4.5-11.0)
[2023-08-01] MEDS: diphenhydrAMINE 25 MG TABLET 50 MG PO (06:20)
[2023-08-01 06:21] LABS: Anisocytosis 1+; Macrocytosis 1+; Microcytosis 1+; Ovalocytes 1+; Poikilocytosis 1+; Tear Drop Cells 1+
[2023-08-01 06:25] VITALS: BP 102/51; PULSE 88; RESP 18; TEMP 36.4; O2SAT 95
--- NOTE | 2023-08-01 06:32 | PC.NURSE ---
0600 Vaginal packing & souza catheter discontinued. Tolerating procedure well, states it feel much better after everything was taken out. Will continue plan of care & monitor.
--- NOTE | 2023-08-01 06:34 | PC.NURSE ---
C/O itching, states maybe from the Dilaudid. Encouraged to just take oxycodone now that the packing was removed. Rated pain level now @ 5/10.
[2023-08-01 08:00] VITALS: BP 119/76; PULSE 82; RESP 16; TEMP 36.2; O2SAT 98
--- NOTE | 2023-08-01 08:06 | PM.DS.1 ---
History of Present Illness History of Present Illness Date Patient Seen: 08/01/23 Time Patient Seen: 07:45 Chief complaint: Lap Appy w/Higinio & Pelvic w/Harsha *OPB* Narrative: Verito is a 42-year-old , LMP 05/07/2023, who presents in follow-up from an [facility] ED visit on 06/17/2023 for lower abdominal pain at which time uterine fibroids were discovered she experienced menarche at age 11 and has had regular predictable periods throughout her reproductive life. The periods however are heavy, lasting 7-10 days in duration with only a 23 day interval between periods. She is been experiencing gradually increasing pelvic pain over the last 2 years which is associated with development of dyspareunia. She denies or GI symptoms. She also denies intermenstrual bleeding or postcoital bleeding. Patient has had 4 spontaneous vaginal births with the largest being about 8 lb. Patient also notes some need for rectal stenting when she is constipated and has mild stress urinary incontinence but no urge incontinence. Pelvic ultrasound performed 06/17/2023 showed: FINDINGS: Uterus: Uterus is anteverted and normal in size at 6.2 x 7.9 x 11.1 cm. The myometrium is moderately heterogeneous containing scattered uterine fibroids. The endometrium measures 6.5 mm combined thickness. Ovaries: The right ovary measures 2.4 x 3.7 x 2.3 cm, with a calculated ovarian volume of 10.7 cc which includes a 2.4 x 1.7 x 2.3 cm simple cyst. The left ovary measures 1.8 x 1.3 x 1.0 cm, with a calculated ovarian volume of 1.2 cc. The ovaries have a normal sonographic appearance. Less than 12 follicles can be seen in each ovary. No adnexal masses are seen. Other: No pathologic free abdominal or pelvic fluid. IMPRESSION: No evidence for ovarian torsion, incidental note is made of several scattered uterine fibroids. For example, on the right posteriorly an intramural fibroid measures up to 3.7 cm and on the left anteriorly an intramural fibroid measures up to 4.4 cm. Simple small right ovarian cyst incidentally noted. Aside from a single abnormal Pap in 2001 which did not require any treatment, the patient has had normal Paps throughout her reproductive life with her most recent being in 2020. She has not had endometrial sampling performed because we have not been able to get her to stop bleeding therefore endometrial sampling not been possible. She presents for her scheduled gynecologic surgery and appendectomy to be performed by Dr. Ronit Sylvester, general surgery. Discharge Providers Provider Date of admission: 06/30/2023 Discharge Date: 08/01/23 Primary care physician: Allyn Garcia, mobile patrol officer provider: Yamil Mcleod MD Summary Hospital Course Discharge Diagnosis: Menometrorrhagia Submucous fibroid Chronic appendicitis Uterovaginal prolapse, incomplete Vaginal enterocele Rectocele Status post appendectomy, total laparoscopic hysterectomy with bilateral salpingectomy, laparoscopic enterocele repair, and posterior colporrhaphy Hospital Course: Verito was admitted on the morning of 07/31/2023 and underwent laparoscopic appendectomy performed by Dr. Ronit Sylvester. Following Dr. Sylvester's portion of the procedure, the patient underwent total laparoscopic hysterectomy with bilateral salpingectomy, laparoscopic enterocele repair, and posterior colporrhaphy. Full details of the procedure well summarized on my operative note of that date. Following surgery the patient has done extremely well with prompt return of bowel and bladder function, she is ambulating independently, tolerating a regular diet, and her pain is well controlled with oral pain medications. She will be discharged at this time to home in an afebrile normotensive condition after counseling regarding precautionary symptoms, limitations of activity, medications, and plans for follow-up which will be in 2 weeks. Medications at discharge will include resumption of all pre admission medications as well as oxycodone 1 every 6 hours for pain, dispense 20 with no refills, and Cipro 500 mg p.o. b.i.d. x5 days for antibiotic UTI prophylaxis due to her catheterization. Status at Discharge Cognitive/behavioral status at discharge: oriented Functional status at discharge: independent ambulation Overall status at discharge: patient is progressing back to baseline Time Spent with Patient Time spent: Less than 30 minutes Exam Vital Signs (past 8 hours): - 08/01/23 00:12 08/01/23 06:25 Temperature 97.3 F L 97.5 F L Pulse Rate 84 88 Respiratory Rate 16 18 Blood Pressure 96/56 L 102/51 L Pulse Oximetry 96 95 Oxygen Flow Rate 0 Oxygen Delivery Method Room Air Oxygen Flow Rate 0 Const General: cooperative and comfortable Nutritional Appearance: average body habitus Orientation: alert and oriented x3 HENMT Head: normal to inspection, atraumatic and abrasion Ears: hearing grossly normal bilaterally Face and sinus: face symmetric Eyes General: appearance normal, both eyes and all related structures Conjunctivae: conjunctivae normal Sclera: sclerae normal EOM: EOM intact bilaterally Neck Neck: normal visual inspection Resp Effort & Inspection: normal respiratory effort and able to speak in complete sentences Auscultation: clear to auscultation bilaterally Cardio Rate: regular rate Rhythm: regular rhythm Heart Sounds: S1 normal, S2 normal and no murmurs GI Inspection: normal to inspection and incision (Surgical dressings clean and dry) Palpation: soft, no hepatosplenomegaly and tender (Mild, diffuse postsurgical tenderness) External Female Exam: other (No significant bleeding noted) Extrem General: no calf tenderness Psych Appearance: grossly normal Mental Status: mental status grossly normal Speech and Movement: speech and movement normal Mood: congruent mood Affect: normal affect Attitude: cooperative Thought Process: normal Thought Content: normal Judgment: judgment good Objective Labs 08/01/23 04:52 Labs: Laboratory Results - last 24 hr 08/01/23 04:52 WBC 7.1 RBC 3.68 L Hgb 10.8 L Hct 32.8 L MCV 89.2 MCH 29.5 MCHC 33.0 RDW 21.2 H Plt Count 173 Neut % (Auto) 71.6 Lymph % (Auto) 19.6 L [place] % (Auto) 8.6 Eos % (Auto) 0.0 L Baso % (Auto) 0.2 Neut # (Auto) 5100 Lymph # (Auto) 1400 [place] # (Auto) 600 Eos # (Auto) 0 Baso # (Auto) 0 RBC Morphology See below Poikilocytosis 1+ H Anisocytosis 1+ H Microcytosis 1+ H Macrocytosis 1+ H Tear Drop Cells 1+ H Ovalocytes 1+ H PFSH Medical History (Updated 07/19/23 @ 16:01 by Yamil Mcleod MD) Vasovagal symptom Migraines (~2004) ADHD (~1999) Ankle pain (~2019) Chicken pox Anemia Painful menstrual periods (~2009) Abnormal Pap smear of cervix (~2002) History of urinary incontinence (~2009) Headache (~1989) Alopecia Depression (~1989) Anxiety (~1989) Surgical History (Updated 07/13/23 @ 20:30 by Coleen Reid) Anesthesia History of colonoscopy (~08/2021) Social History household members: significant other and children Smoking Status: Never smoker alcohol intake: never Discharge Assessment & Plan Assessment and Plan Assessment: Menometrorrhagia Submucous fibroid Chronic appendicitis Uterovaginal prolapse, incomplete Vaginal enterocele Rectocele Status post appendectomy, total laparoscopic hysterectomy with bilateral salpingectomy, laparoscopic enterocele repair, and posterior colporrhaphy Plan of Treatment: Routine postoperative care with follow-up planned for 2 weeks following her surgery Discharge Plan Discharge Plan Patient Disposition: Home Provider Discharge Comment: Please review the written instructions you received when you were discharged from the hospital. Your follow-up appointment will be scheduled for 2 weeks after your surgery and I look forward to seeing you then. If however in the meanwhile, you have any issues, concerns, or questions, please contact me either through the office phone at [phone], or via the patient portal. Discharge orders & Medications Discharge Orders: Discharge (Order); Ordered 08/01/23 Ordered By: Yamil Mcleod Prescriptions: New oxycodone 5 mg Tablet 5 mg PO Q6H PRN (Reason: Pain, Moderate (4-6)) Qty: 20 0RF ciprofloxacin HCl [Cipro] 500 mg tablet 500 mg PO BID 5 Days Qty: 10 0RF scopolamine base [Transderm-Scop] 1 mg over 3 days patch 3 day 1 patch transdermal Q3D PRN (Reason: nausea) Qty: 4 3RF Continued dextroamphetamine-amphetamine [Adderall] 5 mg tablet 5 mg PO DAILY trazodone 50 mg tablet 50 mg PO BEDTIME PRN (Reason: Insomnia) tramadol 50 mg tablet 50 mg PO Q6H PRN (Reason: Pain (Scale Score 4-6)) sumatriptan succinate 50 mg tablet 50 mg PO DAILY PRN (Reason: Migraine Headache) dicyclomine 20 mg tablet 20 mg PO 4XD PRN (Reason: cramps) fluoxetine 20 mg tablet 20 mg PO DAILY clonazepam 0.5 mg tablet 0.25 mg PO BID PRN (Reason: anxiety attack) pantoprazole [Protonix] 40 mg tablet,delayed release (DR/EC) 40 mg PO DAILY Qty: 14 0RF Discontinued norethindrone ac-eth estradiol [Patrice 09/30 ()] 1-20 mg-mcg tablet 1 tab PO DAILY Follow up/Referrals: Yamil Mcleod MD [Physician] - () Allyn Garcia RN [Primary Care Provider] - Diet/Activity/Treatments Diet: Diet as Tolerated Activity: As tolerated Other treatments: [id number]-mcl-[id number] Tylenol and/or ibuprofen may be used for additional pain relief. Nrux-bup-ibmfelz stool softeners and/or MiraLax may be used for constipation as needed Skin/Wound/Dressing Care Report to your healthcare provider any signs of infection, such as:: chills, fever Dressing: Dressings should be removed on the morning of 08/02/2023 Visit Report/Discharge Packet Instructions: DI for Vaginal Prolapse, DI for Hysterectomy, DI for Laparoscopy, DI for Prescription Opioid Use, Oxycodone, Ciprofloxacin Stand Alone Forms: Patient Portal/API, Surgery Discharge Print Language: Cymraes Discharge Data Primary Care Provider: Allyn Garcia Attending Provider: Yamil Mcleod Quality VTE Deep Vein Thrombosis/Pulmonary Embolism Present on Admission: No
[2023-08-01] MEDS: DOCUSATE 100 MG CAPSULE 200 MG PO (08:12)
[2023-08-01] MEDS: PANTOPRAZOLE DR 40 MG TABLET PO (08:13)
[2023-08-01] MEDS: FLUoxetine 20 MG CAPSULE PO (08:13)
--- NOTE | 2023-08-01 10:08 | PC.NURSE ---
Pt is dressed and ready for discharge home with friend. IV has been removed. Went over d/c instructions with Pt and friend-discussed d/c meds, time of last dose, reviewed stroke education, s/s of infection, drinking plenty of fluids to prevent constipation or dehydration, no driving while on narcotics, showering, limiting lifting, and follow up -Pt denied further questions and was taken out via w/c by FILM DRYING MACHINE OPERATOR to POV with Friend Dom and all belongings.
--- NOTE | 2023-08-01 10:30 | CM.DANOTE ---
Brief DCP Assessment Note Patient is a 42yo F here following lap appy with Dr. Sylvester and Lap Hysterectomy with Dr. Mcleod PCP Dr. Allyn Garcia Payer [employer] and self pay HAND RIVETER reviewed EMR. Per patient's last visit here, patient d/c home with no needs. Patient lives at home with children. Per RN, patient doing well and will d/c home today, likely no needs. Patient left prior to being seen by this HAND RIVETER. Plan: patient to d/c home with family support, transport in POV. CM team will continue to follow as needed. DURGA Melgar Discharge Planning/Care Management CM Discharge Assessment Start: 08/01/23 10:28 Freq: Status: Active Protocol: Document 08/01/23 10:29 SL (Rec: 08/01/23 10:30 [id number]) Discharge Planning Assessment Assigned Pleater DURGA Figueroa DPOA/Assigned Designee Name Dom Euceda (Partner) Contact Information [phone] Advance Directives? No History Provided By Medical Record Prior Living Arrangements House Household Members significant other,children Type of transporation used prior to Drives own vehicle admit Independent with ADL's Yes Is patient alert and oriented? Yes Barriers to Discharge No Discharge Plan Home Transportation Arrangement Friend Referrals Initiated None needed Whiteboard Updated in Patient Room with No name and ext. # of Pleater Review Status In Process Next Review Type Continued Stay Review Pre-Anesthesia Assessment Start: 07/24/23 10:47 Freq: Status: Discharge Protocol: Document 07/24/23 10:47 CAB (Rec: 07/24/23 10:54 [facility] [id number]) Pre-Anesthesia Assessment Patient Information Reviewed Via Chart Review Primary Care Provider Allyn Garcia Seen Specialist in Last 12 Months Yes Specialist Seen General surgeon,Blueprint Assembler Comment Admit to 07/04/23-07/05/23 possible early appendicitis + fecal liths Primary Language Yoruba Preferred Language Yoruba Decorating Supervisor Required No Height 152.4 cm Weight 73.936 kg Body Mass Index (BMI) 31.8 Barriers to Learning None Anesthesia Review Requested No Home Hospice Aide No alcohol intake current alcohol intake frequency holidays/special occasions only Smoking Status Never smoker Substance Use Type marijuana Pain Present Pain Reported Patient is completely paralyzed or No completely immobile Mental Status Oriented to own ability Hx Sleep Apnea No Currently Taking a Beta [place] No Anti-Coagulant Therapy No Cardiac Testing No Hx Pacemaker/ICD No Pacemaker Rep Required? No Urinary Catheter Present No Hx Urinary Self Catheterization No Diabetes No Patient No Lactating No Received a COVID vaccine? Yes Marital Status Lives With children Patient Discharge Plan Description Return Home Do You Have Any Spiritual Beliefs That No May Affect Your HC Choices? Do You Have Any Cultural Practices That No May Affect Your HC Choices? Emergency Contact Name Dom Euceda Emergency Contact Advance Directives? No Power of National Facilities Manager No
== END 2023-08-01 10:11 | disposition home or self-care (01) ==
LOC: OR 07:20 → AC 07:20
PROVIDERS: Surgery; PCP Nurse Practitioner Family; Referring Provider Obstetrics & Gynecology; Visit Provider Obstetrics & Gynecology
PROC: 0UT94ZZ Resection of Uterus, Percutaneous Endoscopic Approach (ICD-10-PCS; CPT 58571; principal; 2023-07-31 09:00)
PROC: (CPT 58571; 2023-07-31 09:00)
PROC: 0DTJ4ZZ Resection of Appendix, Percutaneous Endoscopic Approach (ICD-10-PCS; CPT 44970; 2023-07-31 09:00)
DX: N92.1 Excessive and frequent menstruation with irregular cycle (principal); N81.6 Rectocele; N81.5 Vaginal enterocele; D25.1 Intramural leiomyoma of uterus; K35.80 Unspecified acute appendicitis; K38.1 Appendicular concretions; N39.3 Stress incontinence (female) (male); N83.291 Other ovarian cyst, right side; N80.03 Adenomyosis of the uterus; N72 Inflammatory disease of cervix uteri; N80.319 Endometriosis of the anterior cul-de-sac, unspecified depth
CPT/HCPCS: 58571; 44970; 36415; 85025; J0131; J0171; J0690; J1100; J1170; J1885; J2060; J2405; J2704; J2795; J3010; J3410; J3490

== ENCOUNTER 2023-08-07 11:34 | Emergency (ER) | payer OTHER, SELFPAY ==
[2023-07-31 07:26] VITALS: BMI 31.2
[2023-08-07] VITALS (7 sets, daily range): BP systolic 129–140; BP diastolic 78–90; PULSE 74–95; RESP 14–21; TEMP 36.7; O2SAT 98–100; BMI 31.2
--- NOTE | 2023-08-07 11:50 | DI.CT.S_ITS ---
PROCEDURE: CT ABDOMEN PELVIS W CON INDICATIONS: LOWER ABD PAIN POSTOP TECHNIQUE: After the administration of intravenous contrast, axial sections acquired from the lung bases to the pubic symphysis. Coronal and sagittal reformats were performed. For radiation dose reduction, the following was used: automated exposure control, adjustment of mA and/or kV according to patient size. COMPARISON: [facility], CT, CT ABDOMEN PELVIS W CON, 07/03/2023, 21:28. FINDINGS: Image quality: Excellent. Lung bases: No suspicious pulmonary nodule or consolidation. No basilar effusion or pneumothorax. Heart: No significant findings. ABDOMEN: Liver: Unremarkable. Gallbladder: Unremarkable. Biliary ducts: Unremarkable. Pancreas: Unremarkable. Spleen: Unremarkable. Adrenal Glands: Unremarkable. Kidneys and Ureters: Symmetric enhancement with no hydronephrosis or nephrolithiasis bilaterally. Stomach and Bowel: Stomach is decompressed, limiting evaluation, but appears grossly normal. Small and large bowel is normal in caliber, without obstruction. Mild mucosal enhancement of the rectum, likely reactive in the setting of adjacent surgery. Interval appendectomy. No pneumatosis, pneumoperitoneum or portal venous gas. Peritoneum: Trace pelvic free fluid, likely postoperative. No discrete fluid collection. Ventral Wall: Tiny fat containing umbilical hernia. Subcutaneous air in the anterior abdominal wall. No fluid collection. Abdominal Nodes: No retroperitoneal or mesenteric adenopathy by size criteria. Vessels: Aorta and inferior vena cava are normal in size. PELVIS: Pelvic Organs: Interval hysterectomy. Bladder: Unremarkable. Pelvic Nodes: No enlarged lymph nodes. Miscellaneous: No hernias are seen. Bones: No acute fractures. No aggressive appearing lytic or blastic osseous lesions. IMPRESSION: 1. No acute pathology in the abdomen or pelvis. 2. Compared to CT dated July 03, 2023, interval appendectomy and hysterectomy with expected postsurgical changes. No fluid collection. Dictated by: Reginald Lezama M.D. on 08/07/2023 at 12:44 Approved by: Reginald Lezama M.D. on 08/07/2023 at 12:51
--- NOTE | 2023-08-07 11:54 | ED_ITS ---
HPI - Abdominal Pain General Chief Complaint: Abdominal Pain Stated Complaint: appendix and hysterectomy on moday having issues Time Seen by Provider: 08/07/23 11:39 Source: patient Mode of arrival: Wheelchair History of Present Illness HPI narrative: 42-year-old female with history of alopecia presents by private vehicle from home for tremulousness and lower abdominal pain. Patient has had these symptoms ever since her appendectomy/hysterectomy dual procedure performed on 07/31/2023. At that time patient also had repair of enterocele and rectocele. Patient states that she has had a bowel movement since her discharge, it was normal. She was given pain medications but all they do is constipate her and she does not feel like they help her pain. Reports mild nausea, denies vomiting, fevers, other complaints at this time. Related Data Home Medications Medication Instructions Recorded Confirmed dextroamphetamine-amphetamine 5 mg 5 mg PO DAILY 06/29/23 07/31/23 tablet (Adderall) clonazepam 0.5 mg tablet 0.25 mg PO BID PRN anxiety attack 07/04/23 07/31/23 tramadol 50 mg tablet 50 mg PO Q6H PRN Pain (Scale Score 07/19/23 07/31/23 4-6) trazodone 50 mg tablet 50 mg PO BEDTIME PRN Insomnia 07/19/23 07/31/23 dicyclomine 20 mg tablet 20 mg PO 4XD PRN cramps 07/31/23 07/31/23 fluoxetine 20 mg tablet 20 mg PO DAILY 07/31/23 07/31/23 sumatriptan succinate 50 mg tablet 50 mg PO DAILY PRN Migraine 07/31/23 07/31/23 Headache Previous Rx's Medication Instructions Recorded pantoprazole 40 mg tablet,delayed 40 mg PO DAILY #14 tabs 07/05/23 release (Protonix) oxycodone 5 mg tablet 5 mg PO Q6H PRN Pain, Moderate 08/01/23 (4-6) #20 tabs scopolamine base 1 mg over 3 days 1 patch transdermal Q3D PRN nausea 08/01/23 transdermal patch (Transderm-Scop) #4 ea Allergies Allergy/AdvReac Type Severity Reaction Status Date / Time No Known Drug Allergies Allergy Verified 07/31/23 07:48 Review of Systems Review of Systems Narrative: CONSTITUTIONAL- Denies: fever, chills, fatigue HEENT- Denies: sore throat, nosebleed, vision changes RESPIRATORY- Denies: shortness of breath, cough, wheezing CARDIAC- Denies: chest pain, edema, orthopnea GI-reports: Abdominal pain, nausea Denies: vomiting, constipation, diarrhea - Denies: frequency, dysuria, hematuria, flank pain MSK- Denies: extremity pain, extremity swelling, joint pain, joint swelling SKIN- Denies: rash, itching, burn, swelling NEUROLOGICAL-reports: Tremulousness Denies: headache, numbness, weakness, dizziness PSYCHIATRIC- Denies: anxiety, depression, suicidal ideation, homicidal ideation Patient History Medical History (Updated 08/07/23 @ 13:28 by Margarita Phoenix MD) Vasovagal symptom Migraines (~2004) ADHD (~1999) Ankle pain (~2019) Chicken pox Anemia Painful menstrual periods (~2009) Abnormal Pap smear of cervix (~2002) History of urinary incontinence (~2009) Headache (~1989) Alopecia Depression (~1989) Anxiety (~1989) Surgical History (Updated 07/13/23 @ 20:30 by Coleen Reid) Anesthesia History of colonoscopy (~08/2021) Social History household members: significant other and children Smoking Status: Never smoker alcohol intake: never Smoking Status: Never smoker tobacco type: vaping alcohol intake frequency: holidays/special occasions only Substance Use Type: marijuana Exam Initial Vital Signs Initial Vital Signs: Vital Signs Temperature 98.1 F 08/07/23 11:39 Pulse Rate 95 H 08/07/23 11:39 Respiratory Rate 18 08/07/23 11:39 Blood Pressure 140/85 08/07/23 11:39 Pulse Oximetry 99 08/07/23 11:39 Oxygen Delivery Method Room Air 08/07/23 11:39 Const: Awake, alert, tremulous, in pain Eyes: PERRL, EOMI, conjunctiva normal ENT: Atraumatic, dentition normal, mucous membranes moist Cardiac: regular rate, regular rhythm RESP: unlabored, clear bilaterally, no wheezing GI: Soft, nondistended, generalized tenderness to deep palpation, no rebound, no guarding MSK: Atraumatic, full range of motion, pulses equal : Customer Service Advisor present, external inspection normal Rectal: Customer Service Advisor present, external inspection normal Skin: Surgical wounds clean, dry, intact Neuro: AO x3, CN II-XII grossly intact, moves all extremities, intention tremor bilateral hands Psych: affect normal, mood normal, not suicidal, not homicidal Course Orders Ordered: ED Orders 08/07/23 11:50 CT abdomen pelvis w con Stat 08/07/23 12:00 CBC Auto Diff [Complete Blood Count AUTO DIFF] Stat CMP [Comprehensive Metabolic Panel] Stat Lactate (Lactic Acid) Stat 08/07/23 12:30 Blood Culture Stat Discontinued Medications Hydromorphone HCl (Hydromorphone 1 Mg Inj) 1 mg IV NOW ONE Stop: 08/07/23 12:04 Last Admin: 08/07/23 12:06 Dose: 1 mg Documented By: CHAIM Morphine Sulfate (Morphine 4 Mg/Ml Inj) 4 mg IV NOW ONE Stop: 08/07/23 11:51 Last Admin: 08/07/23 12:21 Dose: Not Given Documented By: CHAIM Ondansetron HCl (Ondansetron 4 Mg/2 Ml Inj) 4 mg IV NOW ONE Stop: 08/07/23 12:04 Last Admin: 08/07/23 12:06 Dose: 4 mg Documented By: CHAIM Vital Signs Vital signs: Vital Signs - 8 hr 08/07/23 11:39 08/07/23 12:00 08/07/23 12:14 Temperature 98.1 F Pulse Rate 95 H 77 83 Respiratory Rate 18 Blood Pressure 140/85 Pulse Oximetry 99 98 99 Oxygen Delivery Method Room Air Room Air 08/07/23 12:14 08/07/23 12:30 08/07/23 13:00 Temperature Pulse Rate 93 H 78 Respiratory Rate 14 17 Blood Pressure 138/90 Pulse Oximetry 98 100 Oxygen Delivery Method Room Air 08/07/23 13:30 08/07/23 13:35 08/07/23 13:35 Temperature Pulse Rate 74 77 Respiratory Rate 21 17 Blood Pressure 129/78 Pulse Oximetry 100 100 Oxygen Delivery Method Room Air MDM - Abdominal Pain Differential Diagnosis Differential diagnosis: Likely abdominal pain, constipation and diverticulitis Lab Data 08/07/23 12:00 08/07/23 12:00 Labs: Lab Results 08/07/23 Range/Units 12:00 WBC 6.0 (4.5-11.0) X10^3/uL RBC 4.29 (4.0-5.2) X10^6/uL Hgb 12.8 (12.0-16.0) g/dL Hct 38.5 (36-46) % MCV 89.7 (80-100) fL MCH 29.8 (26-34) PG MCHC 33.2 (30-36) % RDW 20.9 H (11.6-14.8) % Plt Count 204 (150-400) X10^3/uL Neut % (Auto) 62.3 (50-75) % Lymph % (Auto) 29.2 (25-40) % George % (Auto) 6.2 (3-14) % Eos % (Auto) 1.7 L (2-4) % Baso % (Auto) 0.6 (0-2) % Neut # (Auto) 3700 (8100-3087) /uL Lymph # (Auto) 1700 (7358-0085) /uL George # (Auto) 400 (0-900) /uL Eos # (Auto) 100 (0-450) /uL Baso # (Auto) 0 (0-100) /uL RBC Morphology See below Anisocytosis 1+ H Sodium 136 L (137-145) mmol/L Potassium 4.1 (3.4-5.1) mmol/L Chloride 105 (98-107) mmol/L Carbon Dioxide 25 (22-32) mmol/L BUN 6 L (7-17) mg/dL Creatinine 0.76 (0.52-1.04) mg/dL Estimated GFR > 60 (>60) mL/min BUN/Creatinine Ratio 7.9 (6-22) Glucose 101 H (70-100) mg/dL Lactate 1.0 (0.7-2.1) mmol/L Calcium 9.0 (8.4-10.2) mg/dL Total Bilirubin 0.6 (0.2-1.3) mg/dL AST 22 (14-36) IU/L ALT 13 (<35) IU/L Alkaline Phosphatase 48 (38-126) U/L Total Protein 7.1 (6.3-8.2) g/dL Albumin 3.9 (3.5-5.0) g/dL Globulin 3.2 (1.7-4.1) g/dL Albumin/Globulin Ratio 1.2 (1.0-2.8) MDM Narrative Medical decision making narrative: Patient presenting for above complaint following dual surgical procedures 1 week ago. Patient reports pain in her suture areas and is concerned that there may be an infection. Also complaining of tremulousness following the procedure. Patient does have bilateral tremor in her hands, however otherwise no focal neurologic deficit, fine motor skills are intact. Abdominal incisions are clean, dry, intact, there is no vaginal bleeding or any evidence wound dehiscence or infection Laboratory work is reviewed, unremarkable. CT imaging is reviewed, expected postoperative changes seen, no abnormal fluid collections to suggest abscess or infection. He was able to discuss case with on-call OBGYN doctor Shanon, who spoke with Dr. Mcleod, who performed her surgery. Dr. Mcleod will see patient tomorrow at 1430p. Patient informed of all lab and imaging findings at bedside along with life partner and daughter. Informed of normal findings and that OBGYN would follow up with her tomorrow at 4:30 a.m.. Recommended Tylenol and Motrin for pain if oxycodone that patient has been sent home with is not helpful. If she would like to try the oxycodone again I recommended increasing stool softeners to avoid constipation. ED return precautions discussed at bedside. Patient expressed understanding of the plan and is in agreement at this time. All questions answered at the time of discharge. Discharge Plan Departure Patient Disposition: Home Clinical Impression: Postoperative abdominal pain Instructions: DI for Postoperative Pain Activity Restrictions/Additional Instructions: Today your blood work and CT imaging were normal for your expected postoperative course. I do not know the cause of your symptoms. Your OBGYN we will see you tomorrow at 4:30 p.m. for follow up. Alternate Tylenol and Motrin every 3-4 hours as needed for pain. Continue your previously instructed suture care. Prescriptions: No Action dextroamphetamine-amphetamine [Adderall] 5 mg tablet 5 mg PO DAILY trazodone 50 mg tablet 50 mg PO BEDTIME PRN (Reason: Insomnia) tramadol 50 mg tablet 50 mg PO Q6H PRN (Reason: Pain (Scale Score 4-6)) sumatriptan succinate 50 mg tablet 50 mg PO DAILY PRN (Reason: Migraine Headache) dicyclomine 20 mg tablet 20 mg PO 4XD PRN (Reason: cramps) fluoxetine 20 mg tablet 20 mg PO DAILY oxycodone 5 mg Tablet 5 mg PO Q6H PRN (Reason: Pain, Moderate (4-6)) Qty: 20 0RF scopolamine base [Transderm-Scop] 1 mg over 3 days patch 3 day 1 patch transdermal Q3D PRN (Reason: nausea) Qty: 4 3RF clonazepam 0.5 mg tablet 0.25 mg PO BID PRN (Reason: anxiety attack) pantoprazole [Protonix] 40 mg tablet,delayed release (DR/EC) 40 mg PO DAILY Qty: 14 0RF Referrals: Allyn Garcia RN [Primary Care Provider] - Stand Alone Forms: Patient Portal/API
[2023-08-07] MEDS: HYDROMORPHONE 1 MG INJ IV (12:06)
[2023-08-07] MEDS: ONDANSETRON 4 MG/2 ML INJ IV (12:06)
[2023-08-07 12:09] LABS: Add Manual Diff / Slide Review NO; Basophils Absolute Auto 0 /uL (0-100); Basophils Percent Auto 0.6 % (0-2); Eosinophils Absolute Auto 100 /uL (0-450); Eosinophils Percent Auto 1.7 % (2-4); Hematocrit 38.5 % (36-46); Hemoglobin 12.8 g/dL (12.0-16.0); Lymphocytes Absolute Auto 1700 /uL (1100-4500); Lymphocytes Percent Auto 29.2 % (25-40); Mean Corpuscular HGB Conc 33.2 % (30-36); Mean Corpuscular Hemoglobin 29.8 PG (26-34); Mean Corpuscular Volume 89.7 fL (80-100); Monocytes Absolute Auto 400 /uL (0-900); Monocytes Percent Auto 6.2 % (3-14); Neutrophils Absolute Auto 3700 /uL (1500-7000); Neutrophils Percent Auto 62.3 % (50-75); Platelet Count 204 X10^3/uL (150-400); Red Blood Cell Count 4.29 X10^6/uL (4.0-5.2); Red Cell Distribution Width 20.9 % (11.6-14.8)
[2023-08-07 12:20] LABS: Anisocytosis 1+
[2023-08-07 12:24] LABS: Alanine Aminotransferase 13 IU/L (<35); Albumin 3.9 g/dL (3.5-5.0); Albumin Globulin Ratio 1.2 (1.0-2.8); Alkaline Phosphatase 48 U/L (38-126); Aspartate Aminotransferase 22 IU/L (14-36); BUN Creatinine Ratio 7.9 (6-22); Bilirubin Total 0.6 mg/dL (0.2-1.3); Blood Urea Nitrogen 6 mg/dL (7-17); Carbon Dioxide 25 mmol/L (22-32); Chloride 105 mmol/L (98-107); Estimated Glomerular Filt Rate > 60 mL/min (>60); Globulin 3.2 g/dL (1.7-4.1); Glucose 101 mg/dL (70-100); HEMOLYSIS 16 (0-50); Potassium 4.1 mmol/L (3.4-5.1); Sodium 136 mmol/L (137-145); Total Protein 7.1 g/dL (6.3-8.2)
--- NOTE | 2023-08-07 12:30 | PC.NURSE ---
Patient complains of on and off shaking the past week, worsening shaking today that is persistent. Pt has been taking pain medication at home, however it has not been effective so patient stopped taking it. She didnt take her morning dose of antibiotics due to nausea, but has been compliant in taking them as scheduled prior to today. Pt's pain in her perineum is worse when urinating or passing stool due to the sensitive skin and sutures. She last passed stool and urine today.
== END 2023-08-07 13:44 | disposition home or self-care (01) ==
PROVIDERS: Emergency Provider Emergency Medicine; PCP Nurse Practitioner Family
DX: G89.18 Other acute postprocedural pain (principal); R10.30 Lower abdominal pain, unspecified; Z98.890 Other specified postprocedural states
CPT/HCPCS: 36415; 74177; 80053; 83605; 85025; 87040; 93005; 96374; 96375; 99284; J1170; J2405; Q9967

== ENCOUNTER 2023-08-17 14:52 | Emergency (ER) | payer OTHER, SELFPAY ==
[2023-07-31 07:26] VITALS: BMI 31.2
[2023-08-17] VITALS (8 sets, daily range): BP systolic 132–149; BP diastolic 7–82; PULSE 64–104; RESP 15–22; TEMP 36.6; O2SAT 99–100; BMI 29.2
--- NOTE | 2023-08-17 15:09 | DI.CT.S_ITS ---
PROCEDURE: CT ANGIO CHEST PE PROTOCOL INDICATIONS: SOB, CP, recent sx TECHNIQUE: After the administration of intravenous contrast, 2 mm thick sections acquired from the pulmonary apices to the posterior costophrenic angles. 3-dimensional maximum intensity projection (MIP) coronal and sagittal reformats were then acquired through the thorax. For radiation dose reduction, the following was used: automated exposure control, adjustment of mA and/or kV according to patient size. COMPARISON: None. FINDINGS: Image quality: Diagnostic. Pulmonary arteries: Pulmonary arteries are normal in size, and demonstrate no intraluminal filling defects to suggest central pulmonary embolism. Lungs and pleura: Lungs are clear. No pleural effusions or pneumothorax. Central and peripheral airways are patent. Mediastinum: Heart size is normal, without pericardial effusion. No mediastinal or hilar adenopathy. Thoracic aorta is normal in caliber and enhancement. Esophagus is normal in caliber, without hiatal hernia. Bones and chest wall: No suspicious bony lesions. Ribs and thoracic spine appear intact throughout. No axillary or supraclavicular adenopathy. No thyroid nodules which require sonographic follow up, per consensus guidelines. Upper Abdomen: Visualized upper abdominal solid organs appear normal in the early arterial phase of enhancement. IMPRESSION: 1. No acute process. 2. No pulmonary embolus. Dictated by: Eduardo Reyes M.D. on 08/17/2023 at 15:33 Approved by: Eduardo Reyes M.D. on 08/17/2023 at 15:35
--- NOTE | 2023-08-17 15:15 | ED_ITS ---
HPI - SOB/Dyspnea General Chief Complaint: Shortness of Breath/Dyspnea Stated Complaint: possible blood clot, chest pain Time Seen by Provider: 08/17/23 15:09 Source: patient Mode of arrival: Wheelchair Limitations: no limitations History of Present Illness HPI Narrative: 42-year-old history, appendectomy, hysterectomy and rectal/bladder prolapse surgery proximally weeks ago. Sent over from Dr. Rouse's office from her outpatient follow-up for concern for possible emboli. States then she is had increasing she states yesterday she felt little better but today worse she describes shortness of breath, dyspnea on exertion feeling wiped out after doing physical activities. She has not any chest pressure or pain until today had a little bit substernal without radiation. Denies any syncope but states she sometimes feels lightheaded like she might out. She states that is not atypical does have times happened for her. She had some mild nausea today. No vomiting. She states her abdominal incisions have been healing well. She states her abdominal pain has been improving over time. She is been having regular bowel movements. No black or bloody bowel movements. No dysuria, urgency or frequency. She denies any anticoagulant. She on oral contraceptives but stopped in anticipation of her surgery. Denies other surgeries. No known drug allergies. No tobacco, alcohol, occasional THC but no other recreational drugs. No known family history of blood clotting disorders. Primary care is Allyn Garcia. Related Data Home Medications Medication Instructions Recorded Confirmed dextroamphetamine-amphetamine 5 mg 5 mg PO DAILY 06/29/23 08/17/23 tablet (Adderall) clonazepam 0.5 mg tablet 0.25 mg PO BID PRN anxiety attack 07/04/23 08/17/23 tramadol 50 mg tablet 50 mg PO Q6H PRN Pain (Scale Score 07/19/23 08/17/23 4-6) trazodone 50 mg tablet 50 mg PO BEDTIME PRN Insomnia 07/19/23 08/17/23 dicyclomine 20 mg tablet 20 mg PO 4XD PRN cramps 07/31/23 08/17/23 fluoxetine 20 mg tablet 20 mg PO DAILY 07/31/23 08/17/23 sumatriptan succinate 50 mg tablet 50 mg PO DAILY PRN Migraine 07/31/23 08/17/23 Headache Previous Rx's Medication Instructions Recorded pantoprazole 40 mg tablet,delayed 40 mg PO DAILY #14 tabs 07/05/23 release (Protonix) oxycodone 5 mg tablet 5 mg PO Q6H PRN Pain, Moderate 08/01/23 (4-6) #20 tabs scopolamine base 1 mg over 3 days 1 patch transdermal Q3D PRN nausea 08/01/23 transdermal patch (Transderm-Scop) #4 ea oxycodone-acetaminophen 7.5 mg-325 1 tab PO Q4-6H PRN pain #20 tabs 08/08/23 mg tablet Allergies Allergy/AdvReac Type Severity Reaction Status Date / Time No Known Drug Allergies Allergy Verified 08/17/23 15:01 Review of Systems Review of Systems ROS Unobtainable: All systems reviewed & are unremarkable except as noted in HPI and below Patient History Medical History Vasovagal symptom Migraines (~2004) ADHD (~1999) Ankle pain (~2019) Chicken pox Anemia Painful menstrual periods (~2009) Abnormal Pap smear of cervix (~2002) History of urinary incontinence (~2009) Headache (~1989) Alopecia Depression (~1989) Anxiety (~1989) Surgical History History of laparoscopic appendectomy Anesthesia History of colonoscopy (~08/2021) Social History household members: significant other and children Smoking Status: Never smoker alcohol intake: never Smoking Status: Never smoker tobacco type: vaping alcohol intake frequency: holidays/special occasions only Substance Use Type: marijuana Exam Narrative Exam Narrative: GEN: Female, alert and oriented x 3, patient appears to be in moderate distress. HEENT: Atraumatic, pupils are equal round reactive to light, extraocular movements are intact, nares are clear, there is no conjunctival pallor. Throat is clear without any exudates, erythema, tonsillar enlargement or uvular deviation HEART: Regular rate and rhythm without murmur, clicks, rubs. Pulses are equal in upper and lower extremities. No edema bilateral lower extremities LUNGS:Lungs clear to auscultation, no wheezes, rales, crackles, chest moves symmetrically, no tachypnea or accessory muscle use. ABD:bowel sounds normal, soft, non-tender, no guarding, rebound, rigidity, no masses noted, no hepatosplenomegaly :No CVA tenderness MSCL: Non-tender, no muscle atrophy, muscles strength 5/5 upper and lower extremities, full range of motion, normal gait NEURO:CN 2-12 intact, sensation normal Initial Vital Signs Initial Vital Signs: Vital Signs Temperature 97.9 F 08/17/23 14:58 Pulse Rate 76 08/17/23 14:58 Respiratory Rate 22 08/17/23 14:58 Blood Pressure 149/7 H 08/17/23 14:58 Pulse Oximetry 100 08/17/23 14:58 Oxygen Delivery Method Room Air 08/17/23 14:58 Course Orders Ordered: ED Orders 08/17/23 15:06 Complete Blood Count AUTO DIFF Stat Comprehensive Metabolic Panel Stat Lactate (Lactic Acid) Stat Lipase Stat Magnesium Stat NT-proBNP (BNP-Adult 18+) Stat PTT Partial Thromboplastin Nish Stat Prothrombin Time INR Stat Troponin & CK Cardiac Panel Stat 08/17/23 15:09 CT angio chest PE protocol Stat EKG-12 Lead Stat 08/17/23 15:41 Respiratory Panel (Film Array) Stat 08/17/23 16:00 Urine Microscopic Stat 08/17/23 16:30 CT abdomen pelvis w con Stat Discontinued Medications Aspirin (Aspirin 81 Mg Chew Tab) 324 mg PO NOW ONE Stop: 08/17/23 15:10 Last Admin: 08/17/23 15:15 Dose: Not Given Documented By: BALDOMERO Clonazepam (Clonazepam 0.5 Mg Tablet) 0.5 mg PO NOW ONE Stop: 08/17/23 15:50 Last Admin: 08/17/23 15:59 Dose: 0.5 mg Documented By: BALDOMERO Vital Signs Vital signs: Vital Signs - 8 hr 08/17/23 14:58 08/17/23 15:31 08/17/23 16:00 Temperature 97.9 F Pulse Rate 76 83 64 Respiratory Rate 22 22 17 Blood Pressure 149/7 H 138/82 Pulse Oximetry 100 100 100 Oxygen Delivery Method Room Air 08/17/23 16:30 08/17/23 17:01 08/17/23 17:30 Temperature Pulse Rate 72 92 H Respiratory Rate 19 15 Blood Pressure 132/78 Pulse Oximetry 100 100 Oxygen Delivery Method 08/17/23 17:30 08/17/23 17:31 08/17/23 18:00 Temperature Pulse Rate 91 H 104 H 73 Respiratory Rate 17 22 16 Blood Pressure Pulse Oximetry 99 100 99 Oxygen Delivery Method 08/17/23 18:00 Temperature Pulse Rate Respiratory Rate Blood Pressure 134/66 Pulse Oximetry Oxygen Delivery Method MDM - SOB/Dyspnea Lab Data 08/17/23 15:06 08/17/23 15:06 Labs: Lab Results 08/17/23 08/17/23 Range/Units 15:06 15:41 WBC 6.4 (4.5-11.0) X10^3/uL RBC 4.57 (4.0-5.2) X10^6/uL Hgb 13.4 (12.0-16.0) g/dL Hct 40.6 (36-46) % MCV 88.7 (80-100) fL MCH 29.3 (26-34) PG MCHC 33.0 (30-36) % RDW 19.6 H (11.6-14.8) % Plt Count 234 (150-400) X10^3/uL Neut % (Auto) 52.6 (50-75) % Lymph % (Auto) 36.8 (25-40) % Mcdonough % (Auto) 7.4 (3-14) % Eos % (Auto) 2.5 (2-4) % Baso % (Auto) 0.7 (0-2) % Neut # (Auto) 3400 (4470-7499) /uL Lymph # (Auto) 2300 (2634-7599) /uL Mcdonough # (Auto) 500 (0-900) /uL Eos # (Auto) 200 (0-450) /uL Baso # (Auto) 0 (0-100) /uL PT 12.5 (9.4-12.5) SECONDS INR 1.1 (0.9-1.3) APTT 32 (25.1-36.5) SECONDS Sodium 137 (137-145) mmol/L Potassium 3.8 (3.4-5.1) mmol/L Chloride 105 (98-107) mmol/L Carbon Dioxide 24 (22-32) mmol/L BUN 7 (7-17) mg/dL Creatinine 0.74 (0.52-1.04) mg/dL Estimated GFR > 60 (>60) mL/min BUN/Creatinine Ratio 9.5 (6-22) Glucose 91 (70-100) mg/dL Lactate 1.0 (0.7-2.1) mmol/L Calcium 9.5 (8.4-10.2) mg/dL Magnesium 1.9 (1.6-2.3) mg/dL Total Bilirubin 0.5 (0.2-1.3) mg/dL AST 22 (14-36) IU/L ALT 17 (<35) IU/L Alkaline Phosphatase 49 (38-126) U/L Total Creatine Kinase 60 (30-135) U/L Troponin I < 0.012 (0.01-0.034) ng/mL NT-Pro-B Natriuret Pep 160 H (<125) pg/mL Total Protein 7.7 (6.3-8.2) g/dL Albumin 4.3 (3.5-5.0) g/dL Globulin 3.4 (1.7-4.1) g/dL Albumin/Globulin Ratio 1.3 (1.0-2.8) Lipase 278 (23-300) U/L Chlamy pneumoniae PCR Not detected (Not Detect) Adenovirus (PCR) Not detected (Not Detect) B.parapertussis DNA PCR Not detected (Not Detecte) Coronavirus OC43 (PCR) Not detected (Not Detect) Coronavirus HKU1 (PCR) Not detected (Not Detect) Coronavirus 229E (PCR) Not detected (Not Detect) SARS-CoV-2 (PCR) Not detected (Not Detecte) Coronavirus NL63 (PCR) Not detected (Not Detect) Human Metapneumovir PCR Not detected (Not Detect) Influenza Type A (PCR) Not detected (Not Detect) Influenza Type B (PCR) Not detected (Not Detect) M. pneumoniae (PCR) Not detected (Not Detect) Parainfluenza 1 (PCR) Not detected (Not Detect) Parainfluenza 2 (PCR) Not detected (Not Detect) Parainfluenza 3 (PCR) Not detected (Not Detect) Parainfluenza 4 (PCR) Not detected (Not Detect) RSV (PCR) Not detected (Not Detect) Entero/Rhino (PCR) Not detected (Not Detect) Urine Dip Bedside Urine Glucose Negative Bedside Urine Bilirubin - Negative Bedside Urine Ketone +/- 5 Urine Specific Switzer 1.015 Bedside Urine Occult Blood +/- Bedside Urine pH 6.0 Bedside Urine Protein - Negative Bedside Urine Urobilinogen - Negative Bedside Urine Nitrite - Negative Bedside Urine Leukocytes + [address] scan - chest: Radiologist's Impression: [address] [address] [address] Scan Report Signed Patient: Verito Vinson MR#: [id number] : 1980 Acct:[id number] Age/Sex: 42 / F Date of Service: 08/17/23 Loc: ED Accession Number: [id number] Procedure: CT angio chest PE protocol Ordering Provider: Margarita Ward D.O. PROCEDURE: CT ANGIO CHEST PE PROTOCOL INDICATIONS: SOB, CP, recent sx TECHNIQUE: After the administration of intravenous contrast, 2 mm thick sections acquired from the pulmonary apices to the posterior costophrenic angles. 3-dimensional maximum intensity projection (MIP) coronal and sagittal reformats were then acquired through the thorax. For radiation dose reduction, the following was used: automated exposure control, adjustment of mA and/or kV according to patient size. COMPARISON: None. FINDINGS: Image quality: Diagnostic. Pulmonary arteries: Pulmonary arteries are normal in size, and demonstrate no intraluminal filling defects to suggest central pulmonary embolism. Lungs and pleura: Lungs are clear. No pleural effusions or pneumothorax. Central and peripheral airways are patent. Mediastinum: Heart size is normal, without pericardial effusion. No mediastinal or hilar adenopathy. Thoracic aorta is normal in caliber and enhancement. Esophagus is normal in caliber, without hiatal hernia. Bones and chest wall: No suspicious bony lesions. Ribs and thoracic spine appear intact throughout. No axillary or supraclavicular adenopathy. No thyroid nodules which require sonographic follow up, per consensus guidelines. Upper Abdomen: Visualized upper abdominal solid organs appear normal in the early arterial phase of enhancement. IMPRESSION: 1. No acute process. 2. No pulmonary embolus. Dictated by: Eduardo Reyes M.D. on 08/17/2023 at 15:33 Approved by: Eduardo Reyes M.D. on 08/17/2023 at 15:35 CT scan - abdomen/pelvis: Radiologist's Impression: Verito Vinson??42??F??1980 ? Allergy/Adv: No Known Drug Allergies Close Abdomen/Pelvis CT (Signed) Kennedy Briggs - 08/17/23 Chest CTA (Signed) Eduardo Reyes - 08/17/23 Abdomen/Pelvis CT (Signed) ChanningReginald pollard - 08/07/23 Abdomen/Pelvis CT (Signed) Aleena Moran - 07/03/23 Pelvis Ultrasound (Signed) Dean,Aleena - 07/03/23 Pelvis Ultrasound (Signed) Rubin Payne - 06/17/23 Abdomen/Pelvis CT (Signed) Rubin Payne - 06/17/23 Ankle MRI (Signed) Connor Suazo - 04/27/[address] (Signed) Triston Torres - 03/23/21 Ankle X-Ray (Signed) Connor Suazo - 03/23/[address] (Signed) Radha Eden - 03/18/21 Pelvis Ultrasound (Signed) Dean,Aleena - 01/25/21 Abdomen/Pelvis CT (Signed) Dean,Aleena - 01/25/21 Mammogram Diagnostic (Signed) Dean,Aleena - 12/21/20 Breast Ultrasound (Signed) Dean,Aleena - 12/21/[address] (Signed) Connor Suazo - 06/11/19 Launch?[place] [address] CT Scan Report Signed Patient: Verito Vinson MR#: [id number] : 1980 Acct:[id number] Age/Sex: 42 / F Date of Service: 08/17/23 Loc: ED Accession Number: [id number] Procedure: CT abdomen pelvis w con Ordering Provider: Margarita Ward D.O. PROCEDURE: CT ABDOMEN PELVIS W CON INDICATIONS: sob, feeling worse over time TECHNIQUE: After the administration of intravenous contrast, axial sections acquired from the lung bases to the pubic symphysis. Coronal and sagittal reformats were performed. For radiation dose reduction, the following was used: automated exposure control, adjustment of mA and/or kV according to patient size. COMPARISON: [facility], CT, CT ABDOMEN PELVIS W CON, 08/07/2023, 12:25. FINDINGS: Image quality: Excellent. Lung bases: Unremarkable. Heart: No significant findings. ABDOMEN: Liver: Unremarkable. Gallbladder: Unremarkable. Biliary ducts: Unremarkable. Pancreas: Unremarkable. Spleen: Unremarkable. Adrenal Glands: Unremarkable. Kidneys and Ureters: Unremarkable. Stomach and Bowel: Stomach, small bowel loops, and colon are unremarkable. Peritoneum: Small simple appearing fluid within the pelvic. No free air. Ventral Wall: No hernias. Subcutaneous emphysema along the left anterior abdominal wall is decreased compared to prior Abdominal Nodes: No retroperitoneal or mesenteric adenopathy by size criteria. Vessels: Aorta and inferior vena cava are normal in size. PELVIS: Pelvic Organs: Status post hysterectomy. Left ovarian corpus luteal cyst. Bladder: Filled with contrast from prior scan.. Pelvic Nodes: No enlarged lymph nodes. Miscellaneous: No hernias are seen. Bones: Unremarkable. IMPRESSION: 1. No acute intra-abdominal abnormalities. 2. Trace fluid within the pelvis of unclear etiology. 3. Small subcutaneous emphysema along the left anterior abdominal wall is decreased compared to prior and likely postsurgical in etiology. Dictated by: Kennedy Briggs M.D. on 08/17/2023 at 17:10 Approved by: Kennedy Briggs M.D. on 08/17/2023 at 17:14 ECG Data Attestation: I personally reviewed and interpreted this ECG as follows: Prior ECG tracings: not available for review Interpretation: Sinus rhythm rate 88 ID 176 QRS is 76 QTC of [address]VC. No acute ST elevation or depression. Patient does not priors for comparison. [facility] Narrative Medical decision making narrative: 42-year-old female with a appropriate vitals but does appear unwell with frequent PVCs and history concerning for pulmonary emboli. Patient was on oral contraceptives prior to surgery but stopped them in anticipation of surgery. No known clotting disorder within the family she has not had any prior in the past. Abdominal exam is overall benign and well- appearing making this less likely source of her shortness of breath. Plan for labs and imaging to evaluate for pulmonary emboli, anemia, infection or other potential cause of symptoms. Patient's labs show normal white count, hemoglobin of 13 platelets of 234. Coags are negative sodium, potassium CO2 BUN and creatinine are all appropriate glucose of 91 Mag is 1.9 lipase 278. Troponin is negative BNP BNP is 160. CT shows no acute change, no pulmonary emboli, pneumonia, pneumothorax, no pericardial effusion. Heart size is normal. No acute process appreciated. CT pelvis included as patient has had recent surgery. Trace fluid improving. No acute intra-abdominal small subcutaneous emphysema left anterior abdominal wall is decreased. Respiratory panel is negative Ambulatory pulse ox is normal. Discussed with patient would have her follow up as she is had persistent shortness of breath she was improved yesterday persistently today. Discussed return precautions Discharge Plan Departure Clinical Impression: Dyspnea Activity Restrictions/Additional Instructions: Please follow-up with your primary care physician for recheck. Please call to set up follow-up appointment. I hope you start to feel improved. I would recommend following up with your physician for recheck. Please return for new or worsening chest pain, shortness of breath, persistent vomiting, swelling of your extremities or other new or concerning changes. Prescriptions: No Action dextroamphetamine-amphetamine [Adderall] 5 mg tablet 5 mg PO DAILY trazodone 50 mg tablet 50 mg PO BEDTIME PRN (Reason: Insomnia) tramadol 50 mg tablet 50 mg PO Q6H PRN (Reason: Pain (Scale Score 4-6)) oxycodone-acetaminophen 7.5-325 mg tablet 1 tab PO Q4-6H PRN (Reason: pain) Qty: 20 0RF sumatriptan succinate 50 mg tablet 50 mg PO DAILY PRN (Reason: Migraine Headache) dicyclomine 20 mg tablet 20 mg PO 4XD PRN (Reason: cramps) fluoxetine 20 mg tablet 20 mg PO DAILY oxycodone 5 mg Tablet 5 mg PO Q6H PRN (Reason: Pain, Moderate (4-6)) Qty: 20 0RF scopolamine base [Transderm-Scop] 1 mg over 3 days patch 3 day 1 patch transdermal Q3D PRN (Reason: nausea) Qty: 4 3RF clonazepam 0.5 mg tablet 0.25 mg PO BID PRN (Reason: anxiety attack) pantoprazole [Protonix] 40 mg tablet,delayed release (DR/EC) 40 mg PO DAILY Qty: 14 0RF Referrals: Allyn Garcia RN [Primary Care Provider] -
[2023-08-17 15:18] LABS: Add Manual Diff / Slide Review NO; Basophils Absolute Auto 0 /uL (0-100); Basophils Percent Auto 0.7 % (0-2); Eosinophils Absolute Auto 200 /uL (0-450); Eosinophils Percent Auto 2.5 % (2-4); Hematocrit 40.6 % (36-46); Hemoglobin 13.4 g/dL (12.0-16.0); Lymphocytes Absolute Auto 2300 /uL (1100-4500); Lymphocytes Percent Auto 36.8 % (25-40); Mean Corpuscular Hemoglobin 29.3 PG (26-34); Mean Corpuscular Volume 88.7 fL (80-100); Monocytes Absolute Auto 500 /uL (0-900); Monocytes Percent Auto 7.4 % (3-14); Neutrophils Absolute Auto 3400 /uL (1500-7000); Neutrophils Percent Auto 52.6 % (50-75); Platelet Count 234 X10^3/uL (150-400); Red Blood Cell Count 4.57 X10^6/uL (4.0-5.2); Red Cell Distribution Width 19.6 % (11.6-14.8); White Blood Cell Count 6.4 X10^3/uL (4.5-11.0)
[2023-08-17 15:24] LABS: INR 1.1 (0.9-1.3); Prothrombin Time 12.5 SECONDS (9.4-12.5)
[2023-08-17 15:26] LABS: PTT Partial Thromboplastin Tim 32 SECONDS (25.1-36.5)
[2023-08-17 15:29] LABS: Alanine Aminotransferase 17 IU/L (<35); Albumin 4.3 g/dL (3.5-5.0); Albumin Globulin Ratio 1.3 (1.0-2.8); Alkaline Phosphatase 49 U/L (38-126); Aspartate Aminotransferase 22 IU/L (14-36); BUN Creatinine Ratio 9.5 (6-22); Bilirubin Total 0.5 mg/dL (0.2-1.3); Blood Urea Nitrogen 7 mg/dL (7-17); Calcium 9.5 mg/dL (8.4-10.2); Carbon Dioxide 24 mmol/L (22-32); Chloride 105 mmol/L (98-107); Creatine Kinase 60 U/L (30-135); Estimated Glomerular Filt Rate > 60 mL/min (>60); Globulin 3.4 g/dL (1.7-4.1); Glucose 91 mg/dL (70-100); HEMOLYSIS < 15 (0-50); Lipase 278 U/L (23-300); Magnesium 1.9 mg/dL (1.6-2.3); Potassium 3.8 mmol/L (3.4-5.1); Sodium 137 mmol/L (137-145); Total Protein 7.7 g/dL (6.3-8.2)
[2023-08-17 15:39] LABS: NT-proBNP (BNP-Adult 18+) 160 pg/mL (<125); Troponin I < 0.012 ng/mL (0.01-0.034)
--- NOTE | 2023-08-17 15:47 | PC.NURSE ---
Dr. Ward at bedside w/ pt and pt fmaily
[2023-08-17] MEDS: clonazePAM 0.5 MG TABLET PO (15:59)
--- NOTE | 2023-08-17 16:30 | DI.CT.S_ITS ---
PROCEDURE: CT ABDOMEN PELVIS W CON INDICATIONS: sob, feeling worse over time TECHNIQUE: After the administration of intravenous contrast, axial sections acquired from the lung bases to the pubic symphysis. Coronal and sagittal reformats were performed. For radiation dose reduction, the following was used: automated exposure control, adjustment of mA and/or kV according to patient size. COMPARISON: [facility], CT, CT ABDOMEN PELVIS W CON, 08/07/2023, 12:25. FINDINGS: Image quality: Excellent. Lung bases: Unremarkable. Heart: No significant findings. ABDOMEN: Liver: Unremarkable. Gallbladder: Unremarkable. Biliary ducts: Unremarkable. Pancreas: Unremarkable. Spleen: Unremarkable. Adrenal Glands: Unremarkable. Kidneys and Ureters: Unremarkable. Stomach and Bowel: Stomach, small bowel loops, and colon are unremarkable. Peritoneum: Small simple appearing fluid within the pelvic. No free air. Ventral Wall: No hernias. Subcutaneous emphysema along the left anterior abdominal wall is decreased compared to prior Abdominal Nodes: No retroperitoneal or mesenteric adenopathy by size criteria. Vessels: Aorta and inferior vena cava are normal in size. PELVIS: Pelvic Organs: Status post hysterectomy. Left ovarian corpus luteal cyst. Bladder: Filled with contrast from prior scan.. Pelvic Nodes: No enlarged lymph nodes. Miscellaneous: No hernias are seen. Bones: Unremarkable. IMPRESSION: 1. No acute intra-abdominal abnormalities. 2. Trace fluid within the pelvis of unclear etiology. 3. Small subcutaneous emphysema along the left anterior abdominal wall is decreased compared to prior and likely postsurgical in etiology. Dictated by: Kennedy Briggs M.D. on 08/17/2023 at 17:10 Approved by: Kennedy Briggs M.D. on 08/17/2023 at 17:14
[2023-08-17 18:00] LABS: Adenovirus Not Detected (Not Detect); B. parapertussis Not Detected (Not Detecte); Bordetella pertussis Not Detected (Not Detect); Chlamydophila pneumoniae Not Detected (Not Detect); Coronavirus 229E Not Detected (Not Detect); Coronavirus HKU1 Not Detected (Not Detect); Coronavirus NL 63 Not Detected (Not Detect); Coronavirus OC43 Not Detected (Not Detect); Human Metapneumovirus Not Detected (Not Detect); Human Rhinovirus/Enterovirus Not Detected (Not Detect); Influenza A Not Detected (Not Detect); Influenza B Not Detected (Not Detect); Mycoplasma pneumoniae Not Detected (Not Detect); Parainfluenza Virus 1 Not Detected (Not Detect); Parainfluenza Virus 2 Not Detected (Not Detect); Parainfluenza Virus 3 Not Detected (Not Detect); Parainfluenza Virus 4 Not Detected (Not Detect); Respiratory Syncytial Virus Not Detected (Not Detect); SARS- CoV-2 Not Detected (Not Detecte)
== END 2023-08-17 18:24 | disposition home or self-care (01) ==
PROVIDERS: Emergency Provider Emergency Medicine; PCP Nurse Practitioner Family
DX: R06.00 Dyspnea, unspecified (principal)
CPT/HCPCS: 36415; 71275; 74177; 80053; 81003; 82550; 83605; 83690; 83735; 83880; 84484; 85025; 85610; 85730; 87633; 93005; 93010; 99284

== ENCOUNTER 2024-02-11 12:42 | Emergency (ER) | payer BC, SELFPAY ==
[2023-07-31 07:26] VITALS: BMI 31.2
[2024-02-11] VITALS (15 sets, daily range): BP systolic 104–155; BP diastolic 58–84; PULSE 68–96; RESP 12–18; TEMP 36.8; O2SAT 96–100; BMI 30.7
[2024-02-11 13:18] LABS: Add Manual Diff / Slide Review NO; Basophils Absolute Auto 100 /uL (0-100); Basophils Percent Auto 0.8 % (0-2); Eosinophils Absolute Auto 100 /uL (0-450); Hematocrit 43.7 % (36-46); Hemoglobin 14.7 g/dL (12.0-16.0); Lymphocytes Absolute Auto 2700 /uL (1100-4500); Lymphocytes Percent Auto 37.6 % (25-40); Mean Corpuscular HGB Conc 33.7 % (30-36); Mean Corpuscular Hemoglobin 31.9 PG (26-34); Mean Corpuscular Volume 94.5 fL (80-100); Monocytes Absolute Auto 500 /uL (0-900); Monocytes Percent Auto 7.5 % (3-14); Neutrophils Absolute Auto 3700 /uL (1500-7000); Neutrophils Percent Auto 52.1 % (50-75); Platelet Count 256 X10^3/uL (150-400); Red Blood Cell Count 4.63 X10^6/uL (4.0-5.2); Red Cell Distribution Width 14.1 % (11.6-14.8); White Blood Cell Count 7.1 X10^3/uL (4.5-11.0)
[2024-02-11] MEDS: ONDANSETRON 4 MG/2 ML INJ IV (13:30)
[2024-02-11 14:01] LABS: Creatine Kinase 83 U/L (30-135)
[2024-02-11 14:03] LABS: Alanine Aminotransferase 26 IU/L (<35); Albumin Globulin Ratio 1.5 (1.0-2.8); Alkaline Phosphatase 60 U/L (38-126); Aspartate Aminotransferase 26 IU/L (14-36); BUN Creatinine Ratio 12.3 (6-22); Bilirubin Total 0.6 mg/dL (0.2-1.3); Blood Urea Nitrogen 9 mg/dL (7-17); Calcium 9.2 mg/dL (8.4-10.2); Carbon Dioxide 28 mmol/L (22-32); Chloride 107 mmol/L (98-107); Estimated Glomerular Filt Rate > 60 mL/min (>60); Globulin 2.7 g/dL (1.7-4.1); Glucose 80 mg/dL (70-100); HEMOLYSIS 29 (0-50); Lipase 169 U/L (23-300); Potassium 4.2 mmol/L (3.4-5.1); Sodium 137 mmol/L (137-145); Total Protein 6.7 g/dL (6.3-8.2)
[2024-02-11 14:14] LABS: Troponin I < 0.012 ng/mL (0.01-0.034)
[2024-02-11] MEDS: KETOROLAC 30 MG/ML VIAL 15 MG IV (14:55)
--- NOTE | 2024-02-11 15:34 | PC.NURSE ---
Left upper back pain radiating under left breast. Pt reports it feeling like rib pain. No pain no palpable pain to lower back/flank. No significant medical history.
--- NOTE | 2024-02-11 16:31 | ED.BACK ---
HPI - Back Pain/Injury General Chief Complaint: Back Pain/Injury Stated Complaint: L Side Rib Pain Time Seen by Provider: 02/11/24 16:30 Source: patient, RN notes reviewed and old records reviewed Mode of arrival: Ambulatory Limitations: no limitations History of Present Illness HPI Narrative: 43-year-old female on duloxetine as her only daily medication with prior hysterectomy, appendectomy and pelvic floor reconstruction over a year ago. Patient presents with complaint of 3 days of sudden onset sort of left midthoracic back pain radiating towards the front. Just underneath the ribs coming around to the front. Does not radiate any lower. Patient states was pretty sudden onset. States no fever but she is felt chilled, no cold cough or congestion. She describes it as pruritic. No syncope or lightheadedness. She has had nausea but no vomiting. Food does make it worse she states she has had some diarrhea, stools have just been loose but not watery, no mucus, no bright red blood or melanotic stools. No dysuria urgency or frequency. She has not had similar symptoms in the past. She did not notice any skin changes. She has been using a water bottle to the affected area until right before I evaluated her. States only daily medications or duloxetine. States had prior hysterectomy, appendectomy and pelvic floor reconstruction all the same time a year ago. No known drug allergies, does use tobacco daily, alcohol twice yearly, occasional marijuana no other recreational drugs. Jose is her primary care physician. She states no long distance travel O2 than a flight back from [place] which was 2 hours in the last week. She is accompanied by her daughter and boyfriend. Related Data Home Medications Medication Instructions Recorded Confirmed dextroamphetamine-amphetamine 5 mg 5 mg PO DAILY 06/29/23 09/12/23 tablet (Adderall) clonazepam 0.5 mg tablet 0.25 mg PO BID PRN anxiety attack 07/04/23 09/12/23 tramadol 50 mg tablet 50 mg PO Q6H PRN Pain (Scale Score 07/19/23 09/12/23 4-6) trazodone 50 mg tablet 50 mg PO BEDTIME PRN Insomnia 07/19/23 09/12/23 dicyclomine 20 mg tablet 20 mg PO 4XD PRN cramps 07/31/23 09/12/23 fluoxetine 20 mg tablet 20 mg PO DAILY 07/31/23 09/12/23 sumatriptan succinate 50 mg tablet 50 mg PO DAILY PRN Migraine 07/31/23 09/12/23 Headache Previous Rx's Medication Instructions Recorded pantoprazole 40 mg tablet,delayed 40 mg PO DAILY #14 tabs 07/05/23 release (Protonix) scopolamine base 1 mg over 3 days 1 patch transdermal Q3D PRN nausea 08/01/23 transdermal patch (Transderm-Scop) #4 ea oxycodone 5 mg tablet 5 mg PO QID PRN pain #10 tabs 02/11/24 Allergies Allergy/AdvReac Type Severity Reaction Status Date / Time No Known Drug Allergies Allergy Verified 02/11/24 12:50 Review of Systems Review of Systems ROS Unobtainable: All systems reviewed & are unremarkable except as noted in HPI and below Patient History Medical History Vasovagal symptom Migraines (~2004) ADHD (~1999) Ankle pain (~2019) Chicken pox Anemia Abnormal Pap smear of cervix (~2002) Headache (~1989) Alopecia Depression (~1989) Anxiety (~1989) Surgical History History of hysterectomy for benign disease History of laparoscopic appendectomy Anesthesia History of colonoscopy (~08/2021) Social History household members: significant other and children Smoking Status: Current every day smoker alcohol intake: never Smoking Status: Current every day smoker tobacco type: vaping alcohol intake frequency: holidays/special occasions only Substance Use Type: marijuana Exam Narrative Exam Narrative: GENERAL: Alert and oriented x three, female in moderate distress HEENT: Head normocephalic, atraumatic, EOMI, pupils reactive, face symmetric, moist mucous membranes NECK: Supple, full range of motion CARDIOVASCULAR: Regular rate and rhythm without murmurs, rubs or gallops. RESPIRATORY: Breath sounds equal bilaterally, no wheezes rales or rhonchi. ABDOMEN: Soft, nontender. Normoactive bowel sounds all 4 quadrants. No guarding or rebound, rigidity, no mass : No CVA tenderness EXTREMITIES: Normal range of motion, no clubbing or edema. Neurovascularly intact NEUROLOGICAL: Cranial nerves II through XII grossly intact. Moving all extremities SKIN: Warm, dry, no petechiae, patient has some patchy erythematous rash on the left flank/upper thoracic region. It is erythematous slightly raised and patchy, no vesicles are appreciated acceptable 1 little bit more posterior closer to the spine. Areas nontender to touch. Initial Vital Signs Initial Vital Signs: Vital Signs Pulse Rate 96 H 02/11/24 12:46 Respiratory Rate 18 02/11/24 12:46 Blood Pressure 128/80 02/11/24 12:46 Pulse Oximetry 100 02/11/24 12:46 Oxygen Delivery Method Room Air 02/11/24 12:46 Course Orders Ordered: ED Orders 02/11/24 12:51 EKG-12 Lead Stat 02/11/24 13:05 Complete Blood Count AUTO DIFF Stat 02/11/24 13:35 Comprehensive Metabolic Panel Stat Lipase Stat Troponin & CK Cardiac Panel Stat 02/11/24 16:43 CT abdomen pelvis w con Stat CT angio chest PE protocol Stat 02/11/24 17:00 Trop I [Troponin I] Stat Discontinued Medications Ketorolac Tromethamine (Ketorolac 30 Mg/Ml Vial) 15 mg IV NOW ONE Stop: 02/11/24 14:48 Last Admin: 02/11/24 14:55 Dose: 15 mg Documented By: SADE Morphine Sulfate (Morphine 4 Mg/Ml Inj) 4 mg IV NOW ONE Stop: 02/11/24 16:44 Last Admin: 02/11/24 17:12 Dose: 4 mg Documented By: SADE Ondansetron HCl (Ondansetron 4 Mg/2 Ml Inj) 4 mg IV NOW PRN PRN Reason: Nausea And Vomiting Last Admin: 02/11/24 13:30 Dose: 4 mg Documented By: SADE Oxycodone/Acetaminophen (Oxycodone/Apap 5/325 Prepack) 1 bottle MISC DIRECTED ONE Stop: 02/11/24 18:27 Last Admin: 02/11/24 18:41 Dose: 1 bottle Documented By: SADE Vital Signs Vital signs: Vital Signs - 8 hr 02/11/24 12:46 02/11/24 13:36 02/11/24 13:37 Temperature Pulse Rate 96 H 78 72 Respiratory Rate 18 Blood Pressure 128/80 Pulse Oximetry 100 100 100 Oxygen Delivery Method Room Air 02/11/24 13:37 02/11/24 14:00 02/11/24 14:01 Temperature Pulse Rate 87 81 Respiratory Rate 18 Blood Pressure 141/77 H Pulse Oximetry 99 98 Oxygen Delivery Method 02/11/24 14:01 02/11/24 14:30 02/11/24 14:31 Temperature Pulse Rate 80 82 Respiratory Rate 12 14 Blood Pressure 104/58 L Pulse Oximetry 100 100 Oxygen Delivery Method 02/11/24 14:31 02/11/24 15:00 02/11/24 15:00 Temperature Pulse Rate 78 Respiratory Rate 16 Blood Pressure 155/77 H 129/76 Pulse Oximetry 99 Oxygen Delivery Method 02/11/24 15:30 02/11/24 15:30 02/11/24 16:00 Temperature Pulse Rate 85 88 Respiratory Rate 13 13 Blood Pressure 125/84 Pulse Oximetry 97 96 Oxygen Delivery Method 02/11/24 16:00 02/11/24 16:30 02/11/24 16:30 Temperature Pulse Rate 69 Respiratory Rate 16 Blood Pressure 124/75 122/79 Pulse Oximetry 99 Oxygen Delivery Method 02/11/24 17:00 02/11/24 17:30 02/11/24 18:00 Temperature Pulse Rate 71 73 79 Respiratory Rate 13 17 Blood Pressure Pulse Oximetry 100 99 99 Oxygen Delivery Method 02/11/24 18:30 Temperature 98.3 F Pulse Rate 68 Respiratory Rate 17 Blood Pressure 122/79 Pulse Oximetry 98 Oxygen Delivery Method MDM - Back Pain/Injury Lab Data 02/11/24 13:05 02/11/24 13:35 Labs: Lab Results 02/11/24 02/11/24 02/11/24 Range/Units 13:05 13:35 17:00 WBC 7.1 (4.5-11.0) X10^3/uL RBC 4.63 (4.0-5.2) X10^6/uL Hgb 14.7 (12.0-16.0) g/dL Hct 43.7 (36-46) % MCV 94.5 (80-100) fL MCH 31.9 (26-34) PG MCHC 33.7 (30-36) % RDW 14.1 (11.6-14.8) % Plt Count 256 (150-400) X10^3/uL Neut % (Auto) 52.1 (50-75) % Lymph % (Auto) 37.6 (25-40) % [place] % (Auto) 7.5 (3-14) % Eos % (Auto) 2.0 (2-4) % Baso % (Auto) 0.8 (0-2) % Neut # (Auto) 3700 (1475-7114) /uL Lymph # (Auto) 2700 (2489-7551) /uL [place] # (Auto) 500 (0-900) /uL Eos # (Auto) 100 (0-450) /uL Baso # (Auto) 100 (0-100) /uL Sodium 137 (137-145) mmol/L Potassium 4.2 (3.4-5.1) mmol/L Chloride 107 (98-107) mmol/L Carbon Dioxide 28 (22-32) mmol/L BUN 9 (7-17) mg/dL Creatinine 0.73 (0.52-1.04) mg/dL Estimated GFR > 60 (>60) mL/min BUN/Creatinine Ratio 12.3 (6-22) Glucose 80 (70-100) mg/dL Calcium 9.2 (8.4-10.2) mg/dL Total Bilirubin 0.6 (0.2-1.3) mg/dL AST 26 (14-36) IU/L ALT 26 (<35) IU/L Alkaline Phosphatase 60 (38-126) U/L Total Creatine Kinase 83 (30-135) U/L Troponin I < 0.012 < 0.012 (0.01-0.034) ng/mL Total Protein 6.7 (6.3-8.2) g/dL Albumin 4.0 (3.5-5.0) g/dL Globulin 2.7 (1.7-4.1) g/dL Albumin/Globulin Ratio 1.5 (1.0-2.8) Lipase 169 (23-300) U/L Urine Dip Bedside Urine Glucose Negative Bedside Urine Bilirubin - Negative Bedside Urine Ketone - Negative Urine Specific [place] 1.015 Bedside Urine Occult Blood - Negative Bedside Urine pH 6.5 Bedside Urine Protein - Negative Bedside Urine Urobilinogen - Negative Bedside Urine Nitrite - Negative Bedside Urine Leukocytes - Negative Esterase Imaging Data CT scan - chest: Radiologist's Impression: Close Chest CTA (Signed) Augustine Duarte - 02/11/24 Abdomen/Pelvis CT (Signed) Augustine Duarte - 02/11/24 Abdomen/Pelvis CT (Signed) Kennedy Briggs - 08/17/23 Chest CTA (Signed) Eduardo Reyes - 08/17/23 Abdomen/Pelvis CT (Signed) ChanningsonambharatiReginald - 08/07/23 Abdomen/Pelvis CT (Signed) Aleena Moran - 07/03/23 Pelvis Ultrasound (Signed) Aleena Moran - 07/03/23 Pelvis Ultrasound (Signed) Rubin Payne - 06/17/23 Abdomen/Pelvis CT (Signed) Rubin Payne - 06/17/23 Ankle MRI (Signed) Connor Suazo - 04/27/[address] (Signed) Triston Torres - 03/23/21 Ankle X-Ray (Signed) Connor Suazo - 03/23/[address] (Signed) Radha Eden - 03/18/21 Pelvis Ultrasound (Signed) Dean,Aleena - 01/25/21 Abdomen/Pelvis CT (Signed) Aleena Moran - 01/25/21 Mammogram Diagnostic (Signed) Aleena Moran - 12/21/20 Breast Ultrasound (Signed) Aleena Moran - 12/21/[address] (Signed) Connor Suazo - 06/11/19 Launch?[place] [address] CT Scan Report Signed Patient: Verito Vinson MR#: [id number] : 1980 Acct:[id number] Age/Sex: 43 / F Date of Service: 02/11/24 Loc: ED Accession Number: [id number] Procedure: CT angio chest PE protocol Ordering Provider: Margarita Ward D.O. PROCEDURE: CT ANGIO CHEST PE PROTOCOL INDICATIONS: LUQ pain, pleuritic, diarrhea,no reproducible pain TECHNIQUE: After the administration of intravenous contrast, 2 mm thick sections acquired from the pulmonary apices to the posterior costophrenic angles. 3-dimensional maximum intensity projection (MIP) coronal and sagittal reformats were then acquired through the thorax. For radiation dose reduction, the following was used: automated exposure control, adjustment of mA and/or kV according to patient size. COMPARISON: [facility], CT, CT ANGIO CHEST PE PROTOCOL, 08/17/2023, 15:21. FINDINGS: Image quality: Diagnostic. Pulmonary arteries: Pulmonary arteries are normal in size, and demonstrate no intraluminal filling defects to suggest central pulmonary embolism. Lower Neck: No enlarged lymph nodes. Thyroid: No thyroid nodules which require sonographic follow up, per consensus guidelines. Axillae: No enlarged lymph nodes. Chest Wall: Unremarkable. Bones: Unremarkable. Lungs and Pleura: No pneumothorax or pleural effusions. No consolidation or suspicious nodules. Heart: Heart size is normal. No pericardial effusion. Thoracic Vessels: No aortic aneurysm. Mediastinum and Jenna: No enlarged lymph nodes. Esophagus: No wall thickening. No hiatal hernia. Upper Abdomen: Visualized upper abdomen solid organs and bowel loops appear normal. IMPRESSION: No pulmonary embolus. No rib fracture or acute finding to explain patient's symptoms. Dictated by: Augustine Duarte M.D. on 02/11/2024 at 16:40 Approved by: Augustine Duarte M.D. on 02/11/2024 at 16:43 CT scan - abdomen/pelvis: Radiologist's Impression: Verito Vinson??43??F??1980 ? Allergy/Adv: No Known Drug Allergies Close Chest CTA (Signed) Augustine Duarte - 02/11/24 Abdomen/Pelvis CT (Signed) Augustine Duarte - 02/11/24 Abdomen/Pelvis CT (Signed) Kennedy Briggs - 08/17/23 Chest CTA (Signed) Eduardo Reyes - 08/17/23 Abdomen/Pelvis CT (Signed) Reginald Lezama - 08/07/23 Abdomen/Pelvis CT (Signed) Aleena Moran - 07/03/23 Pelvis Ultrasound (Signed) Aleena Moran - 07/03/23 Pelvis Ultrasound (Signed) Rubin Payne - 06/17/23 Abdomen/Pelvis CT (Signed) Rubin Payne - 06/17/23 Ankle MRI (Signed) Connor Suazo - 04/27/[address] (Signed) Triston Torres - 03/23/21 Ankle X-Ray (Signed) Connor Suazo - 03/23/[address] (Signed) Radha Eden - 03/18/21 Pelvis Ultrasound (Signed) Aleena Moran - 01/25/21 Abdomen/Pelvis CT (Signed) Aleena Moran - 01/25/21 Mammogram Diagnostic (Signed) Aleena Moran - 12/21/20 Breast Ultrasound (Signed) Aleena Moran - 12/21/[address] (Signed) Suazo,Connor - 06/11/19 Launch?Image [address] [address] [address] Scan Report Signed Patient: Verito Vinson MR#: [id number] : 1980 Acct:[id number] Age/Sex: 43 / F Date of Service: 02/11/24 Loc: ED Accession Number: [id number] Procedure: CT abdomen pelvis w con Ordering Provider: Margarita Ward D.O. PROCEDURE: CT ABDOMEN PELVIS W CON INDICATIONS: LUQ pain, pleuritic, diarrhea,no reproducible pain TECHNIQUE: After the administration of intravenous contrast, axial sections acquired from the lung bases to the pubic symphysis. Coronal and sagittal reformats were performed. For radiation dose reduction, the following was used: automated exposure control, adjustment of mA and/or kV according to patient size. COMPARISON: [facility], CT, CT ABDOMEN PELVIS W CON, 08/07/2023, 12:25. [facility], CT, CT ABDOMEN PELVIS W CON, 08/17/2023, 16:39. FINDINGS: Image quality: Diagnostic. Lower Chest: No significant findings. ABDOMEN: Liver: No solid mass. Gallbladder: No radiopaque gallstones or wall thickening. Biliary ducts: No biliary dilation. Pancreas: No ductal dilation. Spleen: Size is within normal limits. Adrenal Glands: No adrenal nodules. Kidneys and Ureters: No hydronephrosis. No solid mass. No complex renal cystic lesion which requires follow up. Stomach and Bowel: Normal colonic caliber, without significant wall thickening. Peritoneum: No abnormal intraperitoneal fluid. No free air. Ventral Wall: No significant ventral hernia. Abdominal Nodes: No retroperitoneal or mesenteric adenopathy by size criteria. Vessels: Aorta and inferior vena cava are normal in size. PELVIS: Pelvic Organs: Status post hysterectomy. Bladder: No bladder wall thickening, accounting for underdistention. Pelvic Nodes: No enlarged lymph nodes. Miscellaneous: No inguinal hernias are seen. Bones: No aggressive osseous abnormality. IMPRESSION: No acute findings of the abdomen Dictated by: Augustine Duarte M.D. on 02/11/2024 at 16:33 Approved by: Augustine Duarte M.D. on 02/11/2024 at 16:40 ECG Data Attestation: I personally reviewed and interpreted this ECG as follows: Prior ECG tracings: available for review Interpretation: Sinus rhythm occasional PVC rate 89 UT 150 QRS is 68 QTC of 406, no acute ST elevation or depression. Patient has prior from 08/17/2023, nonspecific change. EKG number sinus rhythm with occasional PVC rate of 70 UT 182 QRS is 74 QTC 425. MDM Narrative Medical decision making narrative: 43-year-old female fairly spread onset of left rib pain back made to the front. Patient exam does show a little bit of a rash in that area, does not quite look like traditional shingles patient notes she had a hot water bottle they are just before I saw her. We will have patient keep that removed we will re-evaluate after imaging. Patient has a CBC with a white count of 7.1 hemoglobin of 14 platelets of 266, glucose is 80 with normal renal function, electrolytes, LFTs are negative, initial troponins less than 0.012. EKG does not show any acute changes does have some PVC. Troponin was repeated and and is less than 0.012 no dynamic changes on EKG, occasional PVC. Point of care urine is negative. No test as patient has had prior hysterectomy. CT angio chest shows no your other changes, CT abdomen pelvis does not show any other changes. Patient's skin changes resolved there is 2 small red dots on her back posteriorly but no other clear changes consistent with infection. Unclear if she truly a shingles discussed with patient to watch for rash. Discussed differential. We will give short course of pain medication and return precautions Discharge Plan Departure Patient Disposition: Home Clinical Impression: Acute left-sided thoracic back pain Activity Restrictions/Additional Instructions: Please follow up with primary care if your symptoms are persisting but controlled. There is a possibility that he could have shingles there is no rash appreciated currently but if you develop red, blistered or small vesicles please follow up with primary care or return to start an antiviral. You can take Tylenol up to a 1000 mg every 6 hours as needed pain, can take Ibuprofen up to 600 mg every 6 hours as needed for pain. If needed you can take 1-2 tablets of narcotic pain medication every 6 hours as needed. This medication can make you sleepy do not drive, perform hazardous activities or make any major decisions while taking it. This medication will make you constipated please take a stool softener once to twice daily until stools are soft and regular. Prescription sent to [facility] in [place]. Please return for fevers, new or worsening chest, abdominal flank pain, persistent vomiting, coughing up blood, lightheadedness or passing out, black or bloody stools other new or concerning changes. Prescriptions: New oxycodone 5 mg tablet 5 mg PO QID PRN (Reason: pain) Qty: 10 0RF No Action dextroamphetamine-amphetamine [Adderall] 5 mg tablet 5 mg PO DAILY trazodone 50 mg tablet 50 mg PO BEDTIME PRN (Reason: Insomnia) tramadol 50 mg tablet 50 mg PO Q6H PRN (Reason: Pain (Scale Score 4-6)) sumatriptan succinate 50 mg tablet 50 mg PO DAILY PRN (Reason: Migraine Headache) dicyclomine 20 mg tablet 20 mg PO 4XD PRN (Reason: cramps) fluoxetine 20 mg tablet 20 mg PO DAILY scopolamine base [Transderm-Scop] 1 mg over 3 days patch 3 day 1 patch transdermal Q3D PRN (Reason: nausea) Qty: 4 3RF clonazepam 0.5 mg tablet 0.25 mg PO BID PRN (Reason: anxiety attack) pantoprazole [Protonix] 40 mg tablet,delayed release (DR/EC) 40 mg PO DAILY Qty: 14 0RF Referrals: Allyn Garcia RN [Primary Care Provider] - Stand Alone Forms: Patient Portal/API, Work Release Note
--- NOTE | 2024-02-11 16:43 | DI.CT.S_ITS ---
PROCEDURE: CT ABDOMEN PELVIS W CON INDICATIONS: LUQ pain, pleuritic, diarrhea,no reproducible pain TECHNIQUE: After the administration of intravenous contrast, axial sections acquired from the lung bases to the pubic symphysis. Coronal and sagittal reformats were performed. For radiation dose reduction, the following was used: automated exposure control, adjustment of mA and/or kV according to patient size. COMPARISON: [facility], CT, CT ABDOMEN PELVIS W CON, 08/07/2023, 12:25. [facility], CT, CT ABDOMEN PELVIS W CON, 08/17/2023, 16:39. FINDINGS: Image quality: Diagnostic. Lower Chest: No significant findings. ABDOMEN: Liver: No solid mass. Gallbladder: No radiopaque gallstones or wall thickening. Biliary ducts: No biliary dilation. Pancreas: No ductal dilation. Spleen: Size is within normal limits. Adrenal Glands: No adrenal nodules. Kidneys and Ureters: No hydronephrosis. No solid mass. No complex renal cystic lesion which requires follow up. Stomach and Bowel: Normal colonic caliber, without significant wall thickening. Peritoneum: No abnormal intraperitoneal fluid. No free air. Ventral Wall: No significant ventral hernia. Abdominal Nodes: No retroperitoneal or mesenteric adenopathy by size criteria. Vessels: Aorta and inferior vena cava are normal in size. PELVIS: Pelvic Organs: Status post hysterectomy. Bladder: No bladder wall thickening, accounting for underdistention. Pelvic Nodes: No enlarged lymph nodes. Miscellaneous: No inguinal hernias are seen. Bones: No aggressive osseous abnormality. IMPRESSION: No acute findings of the abdomen Dictated by: Augustine Duarte M.D. on 02/11/2024 at 16:33 Approved by: Augustine Duarte M.D. on 02/11/2024 at 16:40
--- NOTE | 2024-02-11 16:43 | DI.CT.S_ITS ---
PROCEDURE: CT ANGIO CHEST PE PROTOCOL INDICATIONS: LUQ pain, pleuritic, diarrhea,no reproducible pain TECHNIQUE: After the administration of intravenous contrast, 2 mm thick sections acquired from the pulmonary apices to the posterior costophrenic angles. 3-dimensional maximum intensity projection (MIP) coronal and sagittal reformats were then acquired through the thorax. For radiation dose reduction, the following was used: automated exposure control, adjustment of mA and/or kV according to patient size. COMPARISON: [facility], CT, CT ANGIO CHEST PE PROTOCOL, 08/17/2023, 15:21. FINDINGS: Image quality: Diagnostic. Pulmonary arteries: Pulmonary arteries are normal in size, and demonstrate no intraluminal filling defects to suggest central pulmonary embolism. Lower Neck: No enlarged lymph nodes. Thyroid: No thyroid nodules which require sonographic follow up, per consensus guidelines. Axillae: No enlarged lymph nodes. Chest Wall: Unremarkable. Bones: Unremarkable. Lungs and Pleura: No pneumothorax or pleural effusions. No consolidation or suspicious nodules. Heart: Heart size is normal. No pericardial effusion. Thoracic Vessels: No aortic aneurysm. Mediastinum and Jenna: No enlarged lymph nodes. Esophagus: No wall thickening. No hiatal hernia. Upper Abdomen: Visualized upper abdomen solid organs and bowel loops appear normal. IMPRESSION: No pulmonary embolus. No rib fracture or acute finding to explain patient's symptoms. Dictated by: Augustine Duarte M.D. on 02/11/2024 at 16:40 Approved by: Augustine Duarte M.D. on 02/11/2024 at 16:43
[2024-02-11] MEDS: MORPHINE 4 MG/ML INJ IV (17:12)
[2024-02-11 17:30] LABS: Troponin I < 0.012 ng/mL (0.01-0.034)
--- NOTE | 2024-02-11 18:06 | PC.NURSE ---
Reassess; no change
[2024-02-11] MEDS: OXYCODONE/APAP 5/325 PREPACK 1 BOTTLE MISC (18:41)
== END 2024-02-11 18:51 | disposition home or self-care (01) ==
PROVIDERS: Emergency Provider Emergency Medicine; PCP Nurse Practitioner Family
DX: M54.6 Pain in thoracic spine (principal); R10.12 Left upper quadrant pain; R21 Rash and other nonspecific skin eruption
CPT/HCPCS: 36415; 71275; 74177; 80053; 81003; 82550; 83690; 84484; 85025; 93005; 96374; 96375; 99284; J1885; J2270; J2405; Q9967

== ENCOUNTER → 2024-02-15 14:56 | Outpatient (CLI) | payer BC, SELFPAY ==
[2023-07-31 07:26] VITALS: BMI 31.2
--- NOTE | 2024-02-15 14:57 | DI.US.S_ITS ---
PROCEDURE: US ABDOMEN COMPLETE INDICATIONS: PAIN TECHNIQUE: Real-time scanning was performed of the abdominal and retroperitoneal organs, with image documentation. COMPARISON: None. FINDINGS: Liver: Echogenic liver without posterior attenuation. Gallbladder: Normal, without stones. Biliary ducts: Intrahepatic bile ducts are non-dilated. Extrahepatic bile duct caliber measures 6 mm. Normal is 6-7 mm or less in diameter, or 10 mm or less post-cholecystectomy. Pancreas: Visualized portions of the pancreas are sonographically normal. Spleen: Spleen is normal in size and homogeneous in echotexture. Kidneys: Kidneys are normal in size and echotexture. Right kidney measures 10.1 cm long; left kidney measures 11.2 cm long. No hydronephrosis or nephrolithiasis. No solid masses. Aorta: Visualized aorta is normal in caliber at less than 3 cm. Iliacs: Proximal common iliac arteries are normal in caliber at less than 2.5 cm. IVC: Intrahepatic inferior vena cava is patent. Miscellaneous: No free abdominal fluid. IMPRESSION: No acute abnormality. Increased liver echogenicity, likely mild hepatic steatosis. Dictated by: Hector Doe M.D. on 02/15/2024 at 15:52 Approved by: Hector Doe M.D. on 02/15/2024 at 15:54
== END ==
PROVIDERS: PCP Nurse Practitioner Family; Referring Provider Nurse Practitioner Family; Visit Provider Nurse Practitioner Family
DX: R10.12 Left upper quadrant pain (principal)
CPT/HCPCS: 76700